=== PATIENT | female | born 1950 | race Caucasian/White ===

== ENCOUNTER 2016-09-21 14:02 | Inpatient (IN) | payer OTHER ==
[2016-09-21] MEDS ORDERED: ALBUTEROL SO4 2.5/IPRATROPIUM 0.5 INH SOL 3 ML VIAL.NEB. NEB ONE ×3 (14:15→14:46)
[2016-09-21] MEDS ORDERED: methylPREDNISolone NA SUCC 125 MG/2 ML VIAL IVPB ONE (14:46)
[2016-09-21 15:07] LABS: WHITE BLOOD COUNT 14.9 K/mm3 (4.0-10.0)
[2016-09-21 15:07] LABS: VENOUS BLOOD GAS HCO3 22.7 meq/L (22-29); VENOUS PH 7.38 (7.31-7.41)
--- NOTE | 2016-09-21 15:07 | PDOC ---
History of Present Illness - General History Source: Patient Exam Limitations: No Limitations - History of Present Illness Initial Comments: 09/21/16 17:49 The patient is a 65 year old female with a significant past medical history of COPD (not on home oxygen, intubated in the past), HTN, CKD Stage 4, SBO, PAD, Anemia, tobacco abuse who presents to the ED with worsening SOB for 5 days, Patient notes that her SOB had worsened today after a coughing attack and she couldnt catch her breath. Patient notes that she has been experiencing intermittent SOB for over 5 days. She also reports mid back pain that started few days ago after her coughing that started 5 days ago. No associated nubmness.tingling/weakness, urinary or bowel incontinence, recent fall/trauma/ injury She denies any fever, chills, nausea, vomiting, diarrhea, melena, bpr, constipation, leg swelling or headache. She denies any recent falls or trauma. PCP - Dr. José VICK - Dr. Valdez <Debora Roman - Last Filed: 09/21/16 18:16> <Jeremías Matthews - Last Filed: 09/21/16 18:30> - General Chief Complaint: Shortness of Breath Stated Complaint: SOB/WHEEZING Time Seen by Provider: 09/21/16 14:31 Past History <Debora Roman - Last Filed: 09/21/16 18:16> - Past Medical History Anemia: Yes Asthma: Yes Cancer: No Cardiac Disorders: No CVA: No COPD: Yes CHF: No Dementia: No Diabetes: No GI Disorders: Yes (ACID REFLUX) Disorders: No HTN: Yes Hypercholesterolemia: No Liver Disease: No Suicide Attempt (Hx): No Seizures: No Thyroid Disease: No - Surgical History Abdominal Surgery: Yes (HERNIA colon resection) Appendectomy: No Cardiac Surgery: No Cholecystectomy: No Lung Surgery: No Neurologic Surgery: No Orthopedic Surgery: No - Immunization History Immunization Up to Date: Yes - Psycho/Social/Smoking Cessation Hx Anxiety: No Suicidal Ideation: No Smoking Status: Yes Smoking History: Current every day smoker Have you smoked in the past 12 months: Yes Number of Cigarettes Smoked Daily: 10 Information on smoking cessation initiated: No 'Breaking Loose' booklet given: 08/19/15 Hx Alcohol Use: No Drug/Substance Use Hx: No Substance Use Type: None Hx Substance Use Treatment: No <Jeremías Matthews - Last Filed: 09/21/16 18:30> - Past Medical History Allergies/Adverse Reactions: Allergies Allergy/AdvReac Type Severity Reaction Status Date / Time No Known Drug Allergies Allergy Verified 09/21/16 14:04 Home Medications: Ambulatory Orders Albuterol Sulfate [Proair Respiclick] 90 mcg IH ASDIR 03/16/16 Ammonium Lactate Cream [Lac-Hydrin 12% Cream -] 1 applic TP BID 03/16/16 Aspirin [ASA -] 81 mg PO DAILY 03/16/16 Budesonide/Formeterol Fumarate [SYMBICORT 160/4.5mcg -] 2 inh PO DAILY 03/16/16 Bupropion HCl [Bupropion Xl] 300 mg PO DAILY 03/16/16 Calcium Carbonate/Vitamin D3 [Calcium 500-Vit D3 200 Caplet] 1 each PO BID 03/16 Clopidogrel Bisulfate [Clopidogrel] 75 mg PO DAILY 03/16/16 Ferrous Sulfate 325 mg PO TID 03/16/16 Losartan Potassium 100 mg PO DAILY 03/16/16 Montelukast Na [Singulair -] 10 mg PO HS 03/16/16 Omeprazole 20 mg PO DAILY 03/16/16 Quetiapine Fumarate [Seroquel -] 50 mg PO BID 03/16/16 Sertraline HCl [Zoloft -] 100 mg PO DAILY 03/16/16 Zolpidem Tartrate [Ambien Cr] 12.5 mg PO HS 03/16/16 Cyclobenzaprine HCl [Flexeril -] 10 mg PO HS 08/12/16 Pregabalin [Lyrica -] 75 mg PO TID 08/12/16 Atorvastatin Ca [Lipitor] 40 mg PO HS #30 tablet 08/13/16 Azithromycin [Zithromax 250mg Tablets -] 250 mg PO DAILY #3 tablet 08/13/16 Diltiazem Cd [Cardizem Cd -] 120 mg PO DAILY #30 cap.cd.24h 08/13/16 Nicotine Patch [Nicoderm Patch -] 21 mg TD DAILY #30 patch 08/13/16 Prednisone [Deltasone -] 5 mg PO ASDIR #78 tab 08/13/16 Tiotropium [place] [Spiriva] 18 mcg IH DAILY #1 inh 08/13/16 Review of Systems - Review of Systems Able to Perform ROS?: Yes Comments:: 09/21/16 17:49 CONSTITUTIONAL: No reported: Fever, Chills, Diaphoresis, Generalized Weakness, Malaise, Loss of Appetite HEENT: No reported: Rhinorrhea, Nasal Congestion, Throat Pain, Throat Swelling, Difficulty Swallowing, Mouth Swelling, Ear Pain, Eye Pain, Visual Changes CARDIOVASCULAR: No reported: Chest Pain, Syncope, Palpitations, Irregular Heart Rate, Lightheadedness, Peripheral Edema RESPIRATORY: Reported: cough, SOB, SOB with exertion No reported: Orthopnea, Wheezing, Stridor, Hemoptysis GASTROINTESTINAL: No reported: Abdominal pain, Abdominal Distension, Nausea, Vomiting, Diarrhea, Constipation, Melena, Hematochezia GENITOURINARY: No reported: Dysuria, Frequency, Urgency, Hesitancy, Flank Pain, Genital Pain MUSCULOSKELETAL: Reported: back pain No reported: Myalgia, Arthralgia, Joint Swelling, Neck Pain SKIN: No reported: Rash, Itching, Pallor HEMEATOLOGIC/IMMUNOLOGIC: No reported: Easy Bleeding, Easy Bruising, Lymphadenopathy, Frequent infections ENDOCRINE: No reported: Unexplained Weight Gain, Unexplained Weight Loss, Heat Intolerance , Cold Intolerance NEUROLOGIC: No reported: Headache, Focal Weakness, Paresthesias, Vertigo, Lightheadedness, Unsteady Gait, Seizure, Mental Status Changes, Incontinence PSYCHIATRIC: No reported: Anxiety, Depression <Debora Roman - Last Filed: 09/21/16 18:16> *Physical Exam - Vital Signs Last Vital Signs Temp Pulse Resp BP Pulse Ox 99.3 F 95 H 19 106/66 93 L 09/21/16 14:04 09/21/16 15:53 09/21/16 17:05 09/21/16 15:53 09/21/16 17:05 - Physical Exam Comments: 09/21/16 17:49 GENERAL: The patient is awake, alert, and fully oriented, in respiratory distress. HEAD: Normocephalic, atraumatic. EYES: extraocular movements intact, sclera anicteric, conjunctiva clear. ENT: Normal voice, Moist mucous membranes. NECK: Normal range of motion, supple LUNGS:tachypneic, scant wheezing, HEART: Regular rate and rhythm, without murmur, rub or gallop. ABDOMEN: Soft, nontender, normoactive bowel sounds. No guarding, no rebound.No CVA tenderness EXTREMITIES: Normal range of motion, no edema. No clubbing or cyanosis. No cords , erythema, or tenderness. NEUROLOGICAL: No facial assymetry, Normal speech, moving all 4 extermities spontaneously BACK: Mild tenderness in the mid back around T11-12 PSYCH: Normal mood, normal affect. SKIN: Warm, Dry, normal turgor, <Debora Roman - Last Filed: 09/21/16 18:16> - Vital Signs Last Vital Signs Temp Pulse Resp BP Pulse Ox 99.3 F 91 H 26 H 108/60 96 09/21/16 14:04 09/21/16 14:04 09/21/16 14:04 09/21/16 14:04 09/21/16 14:04 <Jeremías Matthews - Last Filed: 09/21/16 18:30> Heart Score/ECG Review - ECG Impressions Comment:: 09/21/16 16:37 Twelve-lead EKG was performed and reviewed by me. There is normal sinus rhythm with a normal rate. Rate of 92 The axis is normal. The intervals are normal. There is normal R wave progression There are no ST or T wave abnormalities. Impression: Normal twelve-lead EKG <Jeremías Matthews - Last Filed: 09/21/16 18:30> ED Treatment Course - LABORATORY CBC & Chemistry Diagram: 09/21/16 14:48 09/21/16 14:48 - ADDITIONAL ORDERS Additional order review: Laboratory Results 09/21/16 09/21/16 14:55 14:48 VBG pH 7.38 POC VBG pCO2 39.3 L POC VBG pO2 61.9 H Sodium 141 Potassium 4.4 Chloride 106 Carbon Dioxide 24 Anion Gap 11 BUN 26 H D Creatinine 1.5 H Creat Clearance w eGFR 34.64 Random Glucose 94 D Calcium 8.5 Total Bilirubin 0.3 AST 22 ALT 21 D Alkaline Phosphatase 171 H Creatine Kinase 95 Troponin I < 0.02 Total Protein 6.9 Albumin 3.4 09/21/16 14:48 RBC 3.30 L D MCV 89.0 MCHC 32.3 RDW 15.6 MPV 8.7 Neutrophils % 81.8 Lymphocytes % 10.8 D Monocytes % 5.6 D Eosinophils % 1.2 D Basophils % 0.6 D - Medications Given in the ED: ED Medications Discontinued Medications Generic Name Dose Route Start Last Admin Trade Name Freq PRN Reason Stop Dose Admin Albuterol/Ipratropium 1 amp 09/21/16 14:15 09/21/16 14:15 Duoneb - NEB 09/21/16 14:16 1 amp NOW ONE Administration Albuterol/Ipratropium 1 amp 09/21/16 14:46 09/21/16 15:07 Duoneb - NEB 09/21/16 14:47 1 amp ONCE ONE Administration Methylprednisolone Sodium Succinate 125 mg 09/21/16 14:46 09/21/16 15:16 Solu-Medrol - IVPB 09/21/16 14:47 125 mg ONCE ONE Administration Oxycodone/Acetaminophen 1 combo 09/21/16 15:20 09/21/16 15:27 Percocet 5/325 - PO 09/21/16 15:21 1 combo ONCE ONE Administration <Debora Roman - Last Filed: 09/21/16 18:16> - LABORATORY CBC & Chemistry Diagram: 09/21/16 14:48 09/21/16 14:48 - RADIOLOGY Radiology Studies Ordered: Category Date Time Status CHEST X-RAY PORTABLE* [RAD] Stat Radiology 09/21/16 14:45 Ordered - Medications Given in the ED: ED Medications Discontinued Medications Generic Name Dose Route Start Last Admin Trade Name Freq PRN Reason Stop Dose Admin Albuterol/Ipratropium 1 amp 09/21/16 14:15 09/21/16 14:15 Duoneb - NEB 09/21/16 14:16 1 amp NOW ONE Administration <Jeremías Matthews - Last Filed: 09/21/16 18:30> Medical Decision Making - Medical Decision Making 09/21/16 18:16 A call was placed to Dr. Kumar at his service. Awaiting call back. <Debora Roman - Last Filed: 09/21/16 18:16> - Medical Decision Making 09/21/16 15:00 65y F hx of COPD, asthma, anemia, htn, acid reflux presents with complaing of worsening cough/sob for the past 5 days, w/o any fever/chills. Pt also complaining of severe back pain when she is coughing and on palpation. On exam the pts lungs are relatively clear, she is midly tachypneic, sats are in the low 90s. pt does have tendernss in the lower thoracic spine on palpation. will obtain cxr to r/o pna nad acute pulmonary disease. xray of lumbar/thoracic spine to r/o fx suspect possible copd exacerbation vs pna, also consider possible PE will give nebs, steroids will reassess PCP: Dr. Kumar GI: Dr. Valdez 09/21/16 16:37 09/21/16 18:27 The patient's blood work was reviewed The patient was noted to have hemoglobin of 9.5 --> down from 12.5 in July. The patient has a history of upper GI bleed, however denies any history of black stool or BPR, guaiac is negative here. The patient's white count is noted to be elevated without a left shift. The patient's chest x-ray is negative for any acute disease Influenza is negative Discussed in detail with Dr. Kumar - consider that the patient's shortness of breath may be secondary to her anemia will transfuse 1 unit of packed red blood cells. Will admit for further management of her shortness of breath. Stable for [facility] Case discussed in detail with admitting physician including history, physical exam and ancillary studies. Admitting physician has assumed care for the patient, will follow all pending diagnostics and will complete the evaluation and treatment. 09/21/16 18:29 A portion of this note was documented by scribe services under my direction. I have reviewed the details of the note, within reason, and agree with the documentation with the following case summary and management plan written by me <Jeremías Matthews - Last Filed: 09/21/16 18:30> *DC/Admit/Observation/Transfer - Attestations Scribe Attestion: 09/21/16 17:50 Documentation prepared by LYNNE Mann, acting as medical/surgery registered nurse for Jeremías Matthews MD. <Debora Roman - Last Filed: 09/21/16 18:16> - Discharge Dispostion Admit: Yes <Jeremías Matthews - Last Filed: 09/21/16 18:30> Diagnosis at time of Disposition: Dyspnea on exertion Anemia Qualifiers: Anemia type: unspecified type Qualified Code(s): D64.9 - Anemia, unspecified COPD (chronic obstructive pulmonary disease) Qualifiers: COPD type: unspecified COPD Qualified Code(s): J44.9 - Chronic obstructive pulmonary disease, unspecified CKD (chronic kidney disease) Qualifiers: Chronic kidney disease stage: unspecified stage Qualified Code(s): N18.9 - Chronic kidney disease, unspecified - Discharge Dispostion Condition at time of disposition: Guarded - Referrals Referrals: Mariano Kumar MD [Primary Care Provider] -
[2016-09-21 15:08] LABS: BASOPHIL 0.6 % (0-2.0); EOSINOPHIL 1.2 % (0-4.5); MCH 28.7 pg (25.7-33.7); MCHC 32.3 g/dl (32.0-36.0); MEAN PLT VOLUME 8.7 fl (7.5-11.1); NEUTROPHILS 81.8 % (42.8-82.8); PLATELET COUNT 243 K/MM3 (134-434); RDW 15.6 % (11.6-15.6)
[2016-09-21] MEDS ORDERED: methylPREDNISolone NA SUCC 125 MG/2 ML VIAL ONE (15:11)
[2016-09-21] MEDS ORDERED: OXYCODONE/APAP 5/325MG COMBO TABLET PO ONE (15:20)
[2016-09-21] MEDS ORDERED: OXYCODONE/APAP 5/325MG COMBO TABLET ONE (15:21)
[2016-09-21 15:32] LABS: ALBUMIN 3.4 g/dl (3.4-5.0); ANION GAP 11 (8-16); BILIRUBIN,TOTAL 0.3 mg/dL (0.2-1.0); CALCIUM 8.5 mg/dL (8.5-10.1); CO2 24 mmol/L (21-32); CREATININE 1.5 mg/dL (0.55-1.02); GLUCOSE,RANDOM 94 mg/dL (74-106); SGOT/AST 22 U/L (15-37); SGPT/ALT 21 U/L (12-78); TOT PROT 6.9 g/dl (6.4-8.2)
[2016-09-21 15:34] LABS: ALK PHOS 171 U/L (45-117); TROPONIN I < 0.02 ng/ml (0.00-0.05)
[2016-09-21] MEDS ORDERED: ALBUTEROL SO4 0.083% IH SOL 2.5 MG/3 ML VIAL.NEB. NEB PRN (19:20)
--- NOTE | 2016-09-21 19:36 | HP ---
Admitting History and Physical - Admission Chief Complaint: shortness of breath, cough History of Present Illness: 65 yo female presents to hospital with back pain, increased coughing. Pain started after cough had increased. Recently admitted for COPD exac (about 1 month ago). Had been on prednisone, now tapered off. When her back hurt she tried to hold in her coughing, but notes that now having increased throat pain as well. Feeling short of breath as well, which also increased last few days. Last summer (03/30) was admitted with anemia with a hgb 7.9. Underwent EGD and colonoscopy at that time, which did not reveal any bleedign (was guiac negative at that time). Noted to be guiac negative in ED now as well, notes no change with her stool. When she was hospitalized her hgb was 12 1 month ago, now 9.5. History Source: Patient, Medical Record Limitations to Obtaining History: Poor Historian - Past Medical History [employer] C[employer]IAN: Yes: Dementia Cardiovascular: Yes: HTN Pulmonary: Yes: Asthma, COPD Gastrointestinal: Yes: Other (SBO) Renal/: Yes: Renal Inusuff Heme/Onc: Yes: Anemia Psych: Yes: Anxiety - Past Surgical History Past Surgical History: Yes: Bypass (arterial), , Hernia Repair - Smoking History Smoking history: Current every day smoker Have you smoked in the past 12 months: Yes Aproximately how many cigarettes per day: 10 - Alcohol/Substance Use Hx Alcohol Use: No History of Substance Use: reports: None - Social History ADL: Independent History of Recent Travel: No Home Medications - Allergies Allergies/Adverse Reactions: Allergies Allergy/AdvReac Type Severity Reaction Status Date / Time No Known Drug Allergies Allergy Verified 09/21/16 14:04 - Home Medications Home Medications: Ambulatory Orders Albuterol Sulfate [Proair Respiclick] 90 mcg IH ASDIR 03/16/16 Ammonium Lactate Cream [Lac-Hydrin 12% Cream -] 1 applic TP BID 03/16/16 Aspirin [ASA -] 81 mg PO DAILY 03/16/16 Budesonide/Formeterol Fumarate [SYMBICORT 160/4.5mcg -] 2 inh PO DAILY 03/16/16 Bupropion HCl [Bupropion Xl] 300 mg PO DAILY 03/16/16 Calcium Carbonate/Vitamin D3 [Calcium 500-Vit D3 200 Caplet] 1 each PO BID 03/16 Clopidogrel Bisulfate [Clopidogrel] 75 mg PO DAILY 03/16/16 Ferrous Sulfate 325 mg PO TID 03/16/16 Losartan Potassium 100 mg PO DAILY 03/16/16 Montelukast Na [Singulair -] 10 mg PO HS 03/16/16 Omeprazole 20 mg PO DAILY 03/16/16 Quetiapine Fumarate [Seroquel -] 50 mg PO BID 03/16/16 Sertraline HCl [Zoloft -] 100 mg PO DAILY 03/16/16 Zolpidem Tartrate [Ambien Cr] 12.5 mg PO HS 03/16/16 Cyclobenzaprine HCl [Flexeril -] 10 mg PO HS 08/12/16 Pregabalin [Lyrica -] 75 mg PO TID 08/12/16 Atorvastatin Ca [Lipitor] 40 mg PO HS #30 tablet 08/13/16 Azithromycin [Zithromax 250mg Tablets -] 250 mg PO DAILY #3 tablet 08/13/16 Diltiazem Cd [Cardizem Cd -] 120 mg PO DAILY #30 cap.cd.24h 08/13/16 Nicotine Patch [Nicoderm Patch -] 21 mg TD DAILY #30 patch 08/13/16 Prednisone [Deltasone -] 5 mg PO ASDIR #78 tab 08/13/16 Tiotropium [place] [Spiriva] 18 mcg IH DAILY #1 inh 08/13/16 Family Disease History - Family Disease History Family Disease History: Diabetes: Brother, Sister Review of Systems - Review of Systems Constitutional: denies: Chills, Fever, Loss of Appetite Eyes: reports: No Symptoms HENT: reports: Throat Pain Neck: reports: No Symptoms Cardiovascular: denies: Chest Pain, Palpitations Respiratory: reports: Cough, SOB, Wheezing. denies: Hemoptysis Gastrointestinal: denies: Abdominal Pain, Diarrhea, Melena, Nausea, Vomiting, Vomiting Blood Genitourinary: denies: Burning, Discharge, Dysuria Neurological: reports: Other (frequent dyskenesia movements) Physical Examination Vital Signs: Vital Signs Temperature 99.3 F 09/21/16 14:04 Pulse Rate 95 H 09/21/16 15:53 Respiratory Rate 19 09/21/16 17:05 Blood Pressure 106/66 09/21/16 15:53 O2 Sat by Pulse Oximetry (%) 93 L 09/21/16 17:05 Constitutional: Yes: No Distress, Anxious Eyes: Yes: Conjunctiva Clear, EOM Intact, PERRL HENT: Yes: Atraumatic, Normocephalic Neck: Yes: Supple, Trachea Midline Cardiovascular: Yes: Regular Rate and Rhythm, S1, S2. No: Murmur Respiratory: Yes: Diminished (bilaterally) Gastrointestinal: Yes: Normal Bowel Sounds, Soft. No: Distention, Tenderness Edema: Yes Edema: LLE: Trace, RLE: Trace Neurological: Yes: Alert, Oriented Labs: CBC, BMP 09/21/16 14:48 09/21/16 14:48 Imaging - Results Chest X-ray: Report Reviewed (no acute disease) Problem List - Problems (1) COPD (chronic obstructive pulmonary disease) Assessment/Plan: -start nebs, solumedrol, cont spiriva, pulm eval Code(s): J44.9 - CHRONIC OBSTRUCTIVE PULMONARY DISEASE, UNSPECIFIED Qualifiers : COPD type: COPD with acute exacerbation Qualified Code(s): J44.1 - Chronic obstructive pulmonary disease with (acute) exacerbation (2) Symptomatic anemia Assessment/Plan: -transfuse 1 unit -Renal eval, heme eval (anemia of chronic disease? -neg EGD, colonoscopy 03/30) Code(s): D64.9 - ANEMIA, UNSPECIFIED (3) CKD (chronic kidney disease) Assessment/Plan: -renal eval (contributing to anemia?) Code(s): N18.9 - CHRONIC KIDNEY DISEASE, UNSPECIFIED Qualifiers: Chronic kidney disease stage: unspecified stage Qualified Code(s): N18.9 - Chronic kidney disease, unspecified (4) Hyperlipidemia Assessment/Plan: cont statin Code(s): E78.5 - HYPERLIPIDEMIA, UNSPECIFIED (5) Hypertension Assessment/Plan: -cont antihypertensives Code(s): I10 - ESSENTIAL (PRIMARY) HYPERTENSION (6) Anxiety Assessment/Plan: -on zoloft, wellbutrin, seroquel, flexeril Code(s): F41.9 - ANXIETY DISORDER, UNSPECIFIED
[2016-09-21] MEDS ORDERED: MONTELUKAST NA 10 MG TABLET ONE (21:12)
[2016-09-21] MEDS ORDERED: methylPREDNISolone NA SUCC 40 MG/1 ML VIAL ONE (21:13)
[2016-09-21] MEDS: ATORVASTATIN CA 40 MG TABLET (FP) PO SCH (21:38)
[2016-09-21] MEDS: FERROUS SO4 325 MG TABLET (FP) PO SCH (21:38)
[2016-09-21] MEDS: CYCLOBENZAPRINE HCL 10 MG TABLET (FP) PO SCH (21:38)
[2016-09-21] MEDS: PREGABALIN 75 MG CAPSULE PO SCH (21:38)
[2016-09-21] MEDS: CALCIUM 500MG/VIT-D 200 UNITS COMBO TABLET (FP) PO SCH (21:39)
[2016-09-21] MEDS: QUEtiapine FUMARATE 50 MG TABLET PO SCH (21:39)
[2016-09-21] MEDS: MONTELUKAST NA 10 MG TABLET PO SCH (21:39)
[2016-09-21] MEDS: ACLIDINIUM BROMIDE 400 MCG/INH AERO.POWD IH SCH (21:39)
[2016-09-21] MEDS: BUDESONIDE/FORMETEROL FUMARATE 160/4.5 mcg INHALER IH SCH (21:39)
[2016-09-21] MEDS: methylPREDNISolone NA SUCC 125 MG/2 ML VIAL IVPB SCH (21:39)
[2016-09-21] MEDS ORDERED: ZOLPIDEM TARTRATE 5 MG TABLET PO PRN (22:00)
[2016-09-21] MEDS: AMMONIUM LACTATE 12% CREAM 140 GM TUBE TP SCH (22:00)
[2016-09-22] MEDS: ALBUTEROL SO4 0.083% IH SOL 2.5 MG/3 ML VIAL.NEB. NEB SCH ×4 (00:07→17:15)
[2016-09-22 05:33] VITALS: BMI 33.5
[2016-09-22] MEDS: FERROUS SO4 325 MG TABLET (FP) PO SCH ×3 (05:41→21:27)
[2016-09-22] MEDS: PREGABALIN 75 MG CAPSULE PO SCH ×3 (05:41→21:27)
[2016-09-22] MEDS: methylPREDNISolone NA SUCC 125 MG/2 ML VIAL IVPB SCH ×2 (06:42→17:53)
[2016-09-22 06:59] LABS: MCH 29.1 pg (25.7-33.7); MCHC 33.1 g/dl (32.0-36.0); MEAN CELL VOLUME 88.2 fl (80-96); MEAN PLT VOLUME 8.8 fl (7.5-11.1); NEUTROPHILS 93.6 % (42.8-82.8); PLATELET COUNT 237 K/MM3 (134-434); RDW 15.7 % (11.6-15.6); WHITE BLOOD COUNT 9.1 K/mm3 (4.0-10.0)
[2016-09-22 07:03] LABS: ALBUMIN 3.4 g/dl (3.4-5.0); CALCIUM 9.1 mg/dL (8.5-10.1); CREATININE 1.5 mg/dL (0.55-1.02)
[2016-09-22 07:05] LABS: BILIRUBIN,TOTAL 0.7 mg/dL (0.2-1.0)
[2016-09-22] MEDS ORDERED: methylPREDNISolone NA SUCC 125 MG/2 ML VIAL IVPB ONE (08:00)
[2016-09-22] MEDS ORDERED: QUEtiapine FUMARATE 25 MG TABLET (FP) ONE ×2 (09:54→21:11)
[2016-09-22] MEDS ORDERED: PT OWN MED DRAWER 7, Y5N ONE ×3 (09:55→22:14)
[2016-09-22] MEDS: ASPIRIN 81 MG CHEWABLE TABLETS PO SCH (10:11)
[2016-09-22] MEDS: AMMONIUM LACTATE 12% CREAM 140 GM TUBE TP SCH ×2 (10:12→21:46)
[2016-09-22] MEDS: LOSARTAN POTASSIUM 50 MG TABLET (FP) PO SCH (10:12)
[2016-09-22] MEDS: NICOTINE 21 MG/24 HOURS TOPICAL PATCH TD SCH (10:12)
[2016-09-22] MEDS: CLOPIDOGREL BISULFATE 75 MG TABLET (FP) PO SCH (10:13)
[2016-09-22] MEDS: PANTOPRAZOLE 20 MG TABLET (FP) PO SCH (10:13)
[2016-09-22] MEDS: CALCIUM 500MG/VIT-D 200 UNITS COMBO TABLET (FP) PO SCH ×2 (10:13→21:28)
[2016-09-22] MEDS: QUEtiapine FUMARATE 50 MG TABLET PO SCH ×2 (10:14→21:28)
[2016-09-22] MEDS: SERTRALINE HCL 50 MG TABLET (FP) PO SCH (10:14)
[2016-09-22] MEDS: BUDESONIDE/FORMETEROL FUMARATE 160/4.5 mcg INHALER IH SCH ×2 (11:28→21:41)
[2016-09-22] MEDS: ACLIDINIUM BROMIDE 400 MCG/INH AERO.POWD IH SCH ×2 (11:29→21:45)
--- NOTE | 2016-09-22 11:34 | CONSULT ---
Consult - text type - Consultation Consultation Note: Renal Consult for CKD/Anemia This is a 65 year old woman with PMhx of non-proteinuric CKD stage 3, hypertension anxiety disorder who presented with sob and found to have Anemia and Cr of 1.5. Pt s/p hospital admission last summer for acute anemia that required blood transfusions, EGD/Colonoscopy at that time was negative for any source of bleeding. Pt denies any dark stools this admission. No flank pain. Denies any NSAID use. + SOB on presentation, + active smoker. No chest pain, fever or chills. PMhx: as above Allergies: NKDA Family hx: NC Social Hx: + smoker ROS: as per HPI Home Meds: Home Medications Medication Instructions Recorded Albuterol Sulfate [Proair 90 mcg IH ASDIR 03/16/16 Respiclick] Ammonium Lactate Cream [Lac-Hydrin 1 applic TP BID 03/16/16 12% Cream -] Aspirin [ASA -] 81 mg PO DAILY 03/16/16 Budesonide/Formeterol Fumarate 2 inh PO DAILY 03/16/16 [SYMBICORT 160/4.5mcg -] Bupropion HCl [Bupropion Xl] 300 mg PO DAILY 03/16/16 Calcium Carbonate/Vitamin D3 1 each PO BID 03/16/16 [Calcium 500-Vit D3 200 Caplet] Clopidogrel Bisulfate [Clopidogrel] 75 mg PO DAILY 03/16/16 Ferrous Sulfate 325 mg PO TID 03/16/16 Losartan Potassium 100 mg PO DAILY 03/16/16 Montelukast Na [Singulair -] 10 mg PO HS 03/16/16 Omeprazole 20 mg PO DAILY 03/16/16 Quetiapine Fumarate [Seroquel -] 50 mg PO BID 03/16/16 Sertraline HCl [Zoloft -] 100 mg PO DAILY 03/16/16 Zolpidem Tartrate [Ambien Cr] 12.5 mg PO HS 03/16/16 Cyclobenzaprine HCl [Flexeril -] 10 mg PO HS 08/12/16 Pregabalin [Lyrica -] 75 mg PO TID 08/12/16 Atorvastatin Ca [Lipitor] 40 mg PO HS #30 tablet 08/13/16 Azithromycin [Zithromax 250mg 250 mg PO DAILY #3 tablet 08/13/16 Tablets -] Diltiazem Cd [Cardizem Cd -] 120 mg PO DAILY #30 cap.cd.24h 08/13/16 Nicotine Patch [Nicoderm Patch -] 21 mg TD DAILY #30 patch 08/13/16 Prednisone [Deltasone -] 5 mg PO ASDIR #78 tab 08/13/16 Tiotropium [place] [Spiriva] 18 mcg IH DAILY #1 inh 08/13/16 Vital Signs Temperature 98.1 F 09/22/16 05:00 Pulse Rate 107 H 09/22/16 09:40 Respiratory Rate 28 H 09/22/16 05:00 Blood Pressure 129/64 09/22/16 05:00 O2 Sat by Pulse Oximetry (%) 98 09/22/16 09:40 Intake & Output 09/19/16 09/20/16 09/21/16 09/22/16 23:59 23:59 23:59 23:59 Intake Total 130 Balance 130 Weight 180 lb 177 lb 2 oz Gen: Very anxious HEENT: NC/AT, MMM CVS: RRR Lungs: CTA + wheeze Abd: soft NT/ND Ext: No edmea, clubbing or cyanosis : No bladder distension Neuro: very axious, no focal defects CBC, BMP 09/22/16 05:35 09/22/16 05:35 Current Medications Aclidinium [place] (Tudorza -) 1 puff IH BID [facility] Last Admin: 09/22/16 11:29 Dose: 1 inh Albuterol Sulfate (Ventolin 0.083% Nebulizer Soln -) 1 amp NEB Q4H PRN PRN Reason: SHORT OF BREATH/WHEEZING Albuterol Sulfate (Ventolin 0.083% Nebulizer Soln -) 1 amp NEB QIDR [facility] Last Admin: 09/22/16 11:02 Dose: 1 amp Aspirin (Asa -) 81 mg PO DAILY [facility] Last Admin: 09/22/16 10:11 Dose: 81 mg Atorvastatin Cal[place] (Lipitor -) 40 mg PO HS [facility] Last Admin: 09/21/16 21:38 Dose: 40 mg Budesonide/Formoterol Fumarate (Symbicort 160/4.5mcg -) 2 puff IH BID [facility] Last Admin: 09/22/16 11:28 Dose: 2 inh Bupropion HCl (Wellbutrin Xl -) 300 mg PO DAILY [facility] Last Admin: 09/22/16 10:14 Dose: 300 mg Calcium Carbonate/Cholecalciferol (Os-Clarence 500+D -) 1 tab PO BID [facility] Last Admin: 09/22/16 10:13 Dose: Not Given Clopidogrel Bisulfate (Plavix -) 75 mg PO DAILY [facility] Last Admin: 09/22/16 10:13 Dose: 75 mg Cyclobenzaprine HCl (Flexeril -) 10 mg PO HS [facility] Last Admin: 09/21/16 21:38 Dose: 10 mg Diltiazem HCl (Cardizem Cd -) 120 mg PO DAILY [facility] Last Admin: 09/22/16 10:12 Dose: 120 mg Ferrous Sulfate (Feosol -) 325 mg PO TID [facility] Last Admin: 09/22/16 05:41 Dose: 325 mg Lactic Acid (Lac-Hydrin 12% Cream -) 1 applic TP BID [facility] Last Admin: 09/22/16 10:12 Dose: 1 applic Losartan Potassium (Cozaar -) 100 mg PO DAILY [facility] Last Admin: 09/22/16 10:12 Dose: 100 mg Methylprednisolone Sodium Succinate (Solu-Medrol -) 80 mg IVPB BID [facility] Last Admin: 09/22/16 06:42 Dose: 80 mg Montelukast Sodium (Singulair -) 10 mg PO HS [facility] Last Admin: 09/21/16 21:39 Dose: 10 mg Nicotine (Nicoderm Patch -) 21 mg TD DAILY [facility] Last Admin: 09/22/16 10:12 Dose: 21 mg Pantoprazole Sodium (Protonix -) 20 mg PO DAILY [facility] Last Admin: 09/22/16 10:13 Dose: 20 mg Pregabalin (Lyrica -) 75 mg PO TID [facility] Last Admin: 09/22/16 05:41 Dose: 75 mg Quetiapine Fumarate (Seroquel -) 50 mg PO BID [facility] Last Admin: 09/22/16 10:14 Dose: 50 mg Sertraline HCl (Zoloft -) 100 mg PO DAILY [facility] Last Admin: 09/22/16 10:14 Dose: 100 mg Zolpidem Tartrate (Ambien -) 5 mg PO HS PRN A/P 65 year old woman with PMhx of non-proteinuric CKD stage 3, hypertension anxiety disorder who presented with sob and found to have Anemia and Cr of 1.5. #Acute SOB secondary to COPD exacerbation +/- Anemia Continue IV steroids and Nebs as per pulmonary Supplamenatl O2 as needed #Aacute on Chronic Anemia s/p PRBC transfusion Iron studies pending Will plan to start Aranesp SC Qweekly if iron stores are adaqute IV iron if iron saturation less then 30% #CKD Stage 3 Renal function at baseline continue losartan avoid nsads and other nephrotoxins #Anxiety disorder Continue zolfot, seroquel may need additional medications Consider psych eval Thank you Will follow José Manuel Reese DO
--- NOTE | 2016-09-22 13:03 | PN ---
Progress Note (short form) - Note Progress Note: PULMONARY CONSULTATION DICTATED 09/22/16 IMP COPD EXACERBATION ANEMIA CHEST PAIN CKD STAGE 3 HTN SMOKER PLAN IV STEROIDS INHALED BRONCHODILATORS NASAL O2 CARDIAC W/U SMOKING CESSATION DISCUSSED DR MARIE Problem List - Problems (1) Anemia Code(s): D64.9 - ANEMIA, UNSPECIFIED Qualifiers: Anemia type: unspecified type Qualified Code(s): D64.9 - Anemia, unspecified (2) Anxiety Code(s): F41.9 - ANXIETY DISORDER, UNSPECIFIED (3) CKD (chronic kidney disease) Code(s): N18.9 - CHRONIC KIDNEY DISEASE, UNSPECIFIED Qualifiers: Chronic kidney disease stage: unspecified stage Qualified Code(s): N18.9 - Chronic kidney disease, unspecified (4) Dyspnea on exertion Code(s): R06.09 - OTHER FORMS OF DYSPNEA (5) Chest pain Code(s): R07.9 - CHEST PAIN, UNSPECIFIED (6) Hyperlipidemia Code(s): E78.5 - HYPERLIPIDEMIA, UNSPECIFIED (7) Hypertension Code(s): I10 - ESSENTIAL (PRIMARY) HYPERTENSION (8) Smokes cigarettes Code(s): F17.210 - NICOTINE DEPENDENCE, CIGARETTES, UNCOMPLICATED (9) Symptomatic anemia Code(s): D64.9 - ANEMIA, UNSPECIFIED (10) COPD (chronic obstructive pulmonary disease) Code(s): J44.9 - CHRONIC OBSTRUCTIVE PULMONARY DISEASE, UNSPECIFIED Qualifiers : COPD type: COPD with acute exacerbation Qualified Code(s): J44.1 - Chronic obstructive pulmonary disease with (acute) exacerbation (11) Decompensated COPD with exacerbation (chronic obstructive pulmonary disease ) Code(s): J44.1 - CHRONIC OBSTRUCTIVE PULMONARY DISEASE W (ACUTE) EXACERBATION
[2016-09-22 13:37] LABS: URINE APPEARANCE CLEAR; URINE BILIRUBIN NEGATIVE (NEGATIVE); URINE BLOOD NEGATIVE (NEGATIVE); URINE COLOR STRAW; URINE GLUCOSE (UA) NEGATIVE (NEGATIVE); URINE KETONE NEGATIVE (NEGATIVE); URINE LEUK ESTERASE NEGATIVE (NEGATIVE); URINE NITRITE NEGATIVE (NEGATIVE); URINE UROBILINOGEN NEGATIVE E.U./dl (0.2-1.0)
[2016-09-22 13:38] LABS: URINE CREATININE 45.1 mg/dL
[2016-09-22 13:39] LABS: URINE PROTEIN 1+ (NEGATIVE)
[2016-09-22 13:44] LABS: URINE WBC <1 /hpf (3-5)
--- NOTE | 2016-09-22 13:45 | EKG ---
Test Reason : Blood Pressure : / mmHG Vent. Rate : 092 BPM Atrial Rate : 092 BPM P-R Int : 134 ms QRS Dur : 082 ms QT Int : 372 ms P-R-T Axes : 054 011 052 degrees QTc Int : 460 ms NORMAL SINUS RHYTHM LOW VOLTAGE QRS BORDERLINE ECG WHEN COMPARED WITH ECG OF 11-AUG-2016 02:17, NO SIGNIFICANT CHANGE WAS FOUND Confirmed by MARIBEL GILLESPIE MD ([id number]) on 09/22/2016 1:44:58 PM Referred By: Confirmed By:MARIBEL GILLESPIE MD
[2016-09-22] MEDS: AZITHROMYCIN 250 MG TABLET (FP) PO SCH (15:05)
--- NOTE | 2016-09-22 15:42 | PN ---
Progress Note, Physician Chief Complaint: Ms Castellano says she is still having coughing and shortness of breath, but it is improving. Having chest pain on inspiration and coughing, no chest pressure. No n/v. - Current Medication List Current Medications: Active Medications Aclidinium Man (Tudorza -) 1 puff IH BID [facility] Last Admin: 09/22/16 11:29 Dose: 1 inh Albuterol Sulfate (Ventolin 0.083% Nebulizer Soln -) 1 amp NEB Q4H PRN PRN Reason: SHORT OF BREATH/WHEEZING Albuterol Sulfate (Ventolin 0.083% Nebulizer Soln -) 1 amp NEB QIDR [facility] Last Admin: 09/22/16 11:02 Dose: 1 amp Aspirin (Asa -) 81 mg PO DAILY [facility] Last Admin: 09/22/16 10:11 Dose: 81 mg Atorvastatin Calcium (Lipitor -) 40 mg PO HS [facility] Last Admin: 09/21/16 21:38 Dose: 40 mg Azithromycin (Zithromax -) 250 mg PO DAILY [facility] Last Admin: 09/22/16 15:05 Dose: 250 mg Budesonide/Formoterol Fumarate (Symbicort 160/4.5mcg -) 2 puff IH BID [facility] Last Admin: 09/22/16 11:28 Dose: 2 inh Bupropion HCl (Wellbutrin Xl -) 300 mg PO DAILY [facility] Last Admin: 09/22/16 10:14 Dose: 300 mg Calcium Carbonate/Cholecalciferol (Os-Clarence 500+D -) 1 tab PO BID [facility] Last Admin: 09/22/16 10:13 Dose: Not Given Clopidogrel Bisulfate (Plavix -) 75 mg PO DAILY [facility] Last Admin: 09/22/16 10:13 Dose: 75 mg Cyclobenzaprine HCl (Flexeril -) 10 mg PO HS [facility] Last Admin: 09/21/16 21:38 Dose: 10 mg Diltiazem HCl (Cardizem Cd -) 120 mg PO DAILY [facility] Last Admin: 09/22/16 10:12 Dose: 120 mg Ferrous Sulfate (Feosol -) 325 mg PO TID [facility] Last Admin: 09/22/16 15:05 Dose: 325 mg Lactic Acid (Lac-Hydrin 12% Cream -) 1 applic TP BID [facility] Last Admin: 09/22/16 10:12 Dose: 1 applic Losartan Potassium (Cozaar -) 100 mg PO DAILY [facility] Last Admin: 09/22/16 10:12 Dose: 100 mg Methylprednisolone Sodium Succinate (Solu-Medrol -) 60 mg IVPB Q8H-IV [facility] Montelukast Sodium (Singulair -) 10 mg PO HS [facility] Last Admin: 09/21/16 21:39 Dose: 10 mg Nicotine (Nicoderm Patch -) 21 mg TD DAILY [facility] Last Admin: 09/22/16 10:12 Dose: 21 mg Pantoprazole Sodium (Protonix -) 20 mg PO DAILY [facility] Last Admin: 09/22/16 10:13 Dose: 20 mg Pregabalin (Lyrica -) 75 mg PO TID [facility] Last Admin: 09/22/16 15:05 Dose: 75 mg Quetiapine Fumarate (Seroquel -) 50 mg PO BID [facility] Last Admin: 09/22/16 10:14 Dose: 50 mg Sertraline HCl (Zoloft -) 100 mg PO DAILY [facility] Last Admin: 09/22/16 10:14 Dose: 100 mg Zolpidem Tartrate (Ambien -) 5 mg PO HS PRN - Objective Vital Signs: Vital Signs Temperature 97.9 F 09/22/16 14:07 Pulse Rate 96 H 09/22/16 14:07 Respiratory Rate 20 09/22/16 14:07 Blood Pressure 116/63 09/22/16 14:07 O2 Sat by Pulse Oximetry (%) 98 09/22/16 09:40 Constitutional: Yes: Well Nourished, No Distress, Calm Cardiovascular: Yes: Regular Rate and Rhythm. No: Gallop, Murmur, Rub Respiratory: Yes: Regular, On Nasal O2, Rhonchi, Wheezes. No: Tachypnea Gastrointestinal: Yes: Normal Bowel Sounds, Soft. No: Distention, Tenderness Extremities: Yes: WNL Edema: No Labs: CBC, BMP 09/22/16 05:35 09/22/16 05:35 Assessment/Plan (1) COPD (chronic obstructive pulmonary disease) Assessment/Plan: -pulmonary consulted and note reviewed -continue bronchodilators -continue solumedrol -follow up respiratory virus panel Code(s): J44.9 - CHRONIC OBSTRUCTIVE PULMONARY DISEASE, UNSPECIFIED Qualifiers : COPD type: COPD with acute exacerbation Qualified Code(s): J44.1 - Chronic obstructive pulmonary disease with (acute) exacerbation (2) Symptomatic anemia Assessment/Plan: -transfused 1 unit -nephrology following, awaiting anemia labs -plan for aranesp -had recent GI work up -hematology consulted Code(s): D64.9 - ANEMIA, UNSPECIFIED (3) CKD (chronic kidney disease) Assessment/Plan: -stable -renal evaluating Code(s): N18.9 - CHRONIC KIDNEY DISEASE, UNSPECIFIED Qualifiers: Chronic kidney disease stage: unspecified stage Qualified Code(s): N18.9 - Chronic kidney disease, unspecified (4) Hyperlipidemia Assessment/Plan: -continue statin Code(s): E78.5 - HYPERLIPIDEMIA, UNSPECIFIED (5) Hypertension Assessment/Plan: -well controlled -continue current regimen Code(s): I10 - ESSENTIAL (PRIMARY) HYPERTENSION (6) Anxiety Assessment/Plan: -continue zoloft, wellbutrin, seroquel, flexeril Code(s): F41.9 - ANXIETY DISORDER, UNSPECIFIED
[2016-09-22] MEDS ORDERED: methylPREDNISolone NA SUCC 125 MG/2 ML VIAL IVPB SCH (18:00)
[2016-09-22] MEDS: CYCLOBENZAPRINE HCL 10 MG TABLET (FP) PO SCH (21:27)
[2016-09-22] MEDS: MONTELUKAST NA 10 MG TABLET PO SCH (21:28)
[2016-09-22] MEDS: ATORVASTATIN CA 40 MG TABLET (FP) PO SCH (21:45)
--- NOTE | 2016-09-22 21:51 | CONSULT ---
Consult - text type - Consultation Consultation Note: The patient is a 65 year old female with a significant past medical history of COPD (not on home oxygen, intubated in the past), HTN, CKD Stage 4, SBO, PAD, Anemia, tobacco abuse who presented with worsening SOB for 5 days. She also reports mid back pain that started few days ago after her coughing that started 5 days ago. No associated nubmness.tingling/weakness, urinary or bowel incontinence, recent fall/trauma/injury She denies any fever, chills, nausea, vomiting, diarrhea, melena, bpr, constipation, leg swelling or headache. She denies any recent falls or trauma. - Past Medical History Anemia: Yes Asthma: Yes COPD: Yes GI Disorders: Yes (ACID REFLUX) HTN: Yes - Surgical History Abdominal Surgery: Yes (HERNIA colon resection) - Immunization History Immunization Up to Date: Yes - Psycho/Social/Smoking Cessation Hx Smoking Status: Yes Smoking History: Current every day smoker Have you smoked in the past 12 months: Yes - Past Medical History Allergies/Adverse Reactions: Allergies Allergy/AdvReac Type Severity Reaction Status Date / Time No Known Drug Allergies Allergy Verified 09/21/16 14:04 Home Medications: Ambulatory Orders Albuterol Sulfate [Proair Respiclick] 90 mcg IH ASDIR 03/16/16 Ammonium Lactate Cream [Lac-Hydrin 12% Cream -] 1 applic TP BID 03/16/16 Aspirin [ASA -] 81 mg PO DAILY 03/16/16 Budesonide/Formeterol Fumarate [SYMBICORT 160/4.5mcg -] 2 inh PO DAILY 03/16/16 Bupropion HCl [Bupropion Xl] 300 mg PO DAILY 03/16/16 Calcium Carbonate/Vitamin D3 [Calcium 500-Vit D3 200 Caplet] 1 each PO BID 03/16 Clopidogrel Bisulfate [Clopidogrel] 75 mg PO DAILY 03/16/16 Ferrous Sulfate 325 mg PO TID 03/16/16 Losartan Potassium 100 mg PO DAILY 03/16/16 Montelukast Na [Singulair -] 10 mg PO HS 03/16/16 Omeprazole 20 mg PO DAILY 03/16/16 Quetiapine Fumarate [Seroquel -] 50 mg PO BID 03/16/16 Sertraline HCl [Zoloft -] 100 mg PO DAILY 03/16/16 Zolpidem Tartrate [Ambien Cr] 12.5 mg PO HS 03/16/16 Cyclobenzaprine HCl [Flexeril -] 10 mg PO HS 08/12/16 Pregabalin [Lyrica -] 75 mg PO TID 08/12/16 Atorvastatin Ca [Lipitor] 40 mg PO HS #30 tablet 08/13/16 Azithromycin [Zithromax 250mg Tablets -] 250 mg PO DAILY #3 tablet 08/13/16 Diltiazem Cd [Cardizem Cd -] 120 mg PO DAILY #30 cap.cd.24h 08/13/16 Nicotine Patch [Nicoderm Patch -] 21 mg TD DAILY #30 patch 08/13/16 Prednisone [Deltasone -] 5 mg PO ASDIR #78 tab 08/13/16 Tiotropium [place] [Spiriva] 18 mcg IH DAILY #1 inh 08/13/16 Current Medications Acetaminophen (Tylenol -) 650 mg PO Q6H PRN PRN Reason: FEVER OR PAIN Last Admin: 09/23/16 06:11 Dose: 650 mg Aclidinium [place] (Tudorza -) 1 puff IH BID [facility] Last Admin: 09/22/16 21:45 Dose: 1 inh Albuterol Sulfate (Ventolin 0.083% Nebulizer Soln -) 1 amp NEB Q4H PRN PRN Reason: SHORT OF BREATH/WHEEZING Albuterol Sulfate (Ventolin 0.083% Nebulizer Soln -) 1 amp NEB QIDR [facility] Last Admin: 09/23/16 06:04 Dose: 1 amp Aspirin (Asa -) 81 mg PO DAILY [facility] Last Admin: 09/22/16 10:11 Dose: 81 mg Atorvastatin Calcium (Lipitor -) 40 mg PO HS [facility] Last Admin: 09/22/16 21:45 Dose: 40 mg Azithromycin (Zithromax -) 250 mg PO DAILY [facility] Last Admin: 09/22/16 15:05 Dose: 250 mg Benzocaine/Menthol (Cepacol Lozenge -) 1 each MM PRN PRN PRN Reason: SORE THROAT Last Admin: 09/22/16 22:40 Dose: 1 each Budesonide/Formoterol Fumarate (Symbicort 160/4.5mcg -) 2 puff IH BID [facility] Last Admin: 09/22/16 21:41 Dose: 1 inh Bupropion HCl (Wellbutrin Xl -) 300 mg PO DAILY [facility] Last Admin: 09/22/16 10:14 Dose: 300 mg Calcium Carbonate/Cholecalciferol (Os-Clarence 500+D -) 1 tab PO BID [facility] Last Admin: 09/22/16 21:28 Dose: 1 tab Clopidogrel Bisulfate (Plavix -) 75 mg PO DAILY [facility] Last Admin: 09/22/16 10:13 Dose: 75 mg Cyclobenzaprine HCl (Flexeril -) 10 mg PO HS [facility] Last Admin: 09/22/16 21:27 Dose: 10 mg Diltiazem HCl (Cardizem Cd -) 120 mg PO DAILY [facility] Last Admin: 09/22/16 10:12 Dose: 120 mg Ferrous Sulfate (Feosol -) 325 mg PO TID [facility] Last Admin: 09/23/16 06:11 Dose: 325 mg Lactic Acid (Lac-Hydrin 12% Cream -) 1 applic TP BID [facility] Last Admin: 09/22/16 21:46 Dose: 1 applic Losartan Potassium (Cozaar -) 100 mg PO DAILY [facility] Last Admin: 09/22/16 10:12 Dose: 100 mg Methylprednisolone Sodium Succinate (Solu-Medrol -) 60 mg IVPB Q8H-IV [facility] Last Admin: 09/23/16 01:10 Dose: 60 mg Montelukast Sodium (Singulair -) 10 mg PO HS [facility] Last Admin: 09/22/16 21:28 Dose: 10 mg Nicotine (Nicoderm Patch -) 21 mg TD DAILY [facility] Last Admin: 09/22/16 10:12 Dose: 21 mg Pantoprazole Sodium (Protonix -) 20 mg PO DAILY [facility] Last Admin: 09/22/16 10:13 Dose: 20 mg Pregabalin (Lyrica -) 75 mg PO TID [facility] Last Admin: 09/23/16 06:11 Dose: 75 mg Quetiapine Fumarate (Seroquel -) 50 mg PO BID [facility] Last Admin: 09/22/16 21:28 Dose: 50 mg Sertraline HCl (Zoloft -) 100 mg PO DAILY [facility] Last Admin: 09/22/16 10:14 Dose: 100 mg Zolpidem Tartrate (Ambien -) 5 mg PO HS PRN *Physical Exam - Vital Signs AFVSS HEENT: [place], EOM Intact Cor: RSR, No murmurs, No gallops Lungs: Clear to P&A Abd: Soft, Normal bowel sounds, No organomegaly Ext:No significant edema Skin: No rashes, Integument intact Abnormal Lab Results 09/22/16 09/22/16 09/22/16 05:35 12:20 12:20 WBC RDW Neutrophils % Lymphocytes % Monocytes % Chloride BUN Creatinine Random Glucose Iron 148 H Iron Saturation 56 H AST Alkaline Phosphatase Urine Protein 1+ H U Random Total Protein 55 H 09/23/16 09/23/16 05:35 05:35 WBC 19.3 H D RDW 15.8 H Neutrophils % 95.2 H Lymphocytes % 3.2 L D Monocytes % 1.5 L D Chloride 110 H BUN 32 H D Creatinine 1.4 H Random Glucose 141 H Iron Iron Saturation AST 14 L Alkaline Phosphatase 174 H Urine Protein U Random Total Protein a/p 65y F hx of COPD, asthma, anemia, htn, acid reflux presents with complaing of worsening cough/sob for the past 5 days, w/o any fever/chills. Pt also complaining of severe back pain when she is coughing and on palpation. Xray T spine shows chronic midthoracic compression and osteopenia Anemia: normocytic Hemoglobin dropped from 12 in Dec. to 9 multifactorial anemia anemia of CKD+ chronic disease due to COPD +/- gi losses check stool occult iron studies were done on ferrous sulfate ferritin was 53 check B12/folate/thyroid studies/SPEP/UPEP/SIFE/LDH/ESR/CRP transfuse for symptomatic anemia back pain --- will consider ct t/l spine
[2016-09-22] MEDS: ACETAMINOPHEN 325 MG TABLET (FP) PO PRN (22:39)
[2016-09-22] MEDS: BENZOCAINE/MENTH/CETYLPYRD CL 1 EACH LOZENGE MM PRN (22:40)
[2016-09-23] MEDS: ALBUTEROL SO4 0.083% IH SOL 2.5 MG/3 ML VIAL.NEB. NEB SCH ×4 (00:15→23:03)
[2016-09-23] MEDS: methylPREDNISolone NA SUCC 125 MG/2 ML VIAL IVPB SCH ×3 (01:10→17:35)
[2016-09-23 06:06] LABS: SERUM IRON 148 ug/dL (27-139); TOTAL IRON BINDING CAPACITY 266 ug/dL (250-450); UIBC 118 ug/dL (118-369)
[2016-09-23] MEDS: PREGABALIN 75 MG CAPSULE PO SCH ×3 (06:11→21:27)
[2016-09-23] MEDS: FERROUS SO4 325 MG TABLET (FP) PO SCH ×3 (06:11→21:27)
[2016-09-23] MEDS: ACETAMINOPHEN 325 MG TABLET (FP) PO PRN (06:11)
[2016-09-23 07:39] LABS: MCH 28.8 pg (25.7-33.7); MCHC 32.6 g/dl (32.0-36.0); MEAN CELL VOLUME 88.3 fl (80-96); MEAN PLT VOLUME 8.7 fl (7.5-11.1); PLATELET COUNT 251 K/MM3 (134-434); RDW 15.8 % (11.6-15.6); WHITE BLOOD COUNT 19.3 K/mm3 (4.0-10.0)
[2016-09-23 08:14] LABS: ALBUMIN 3.5 g/dl (3.4-5.0); BILIRUBIN,TOTAL 0.3 mg/dL (0.2-1.0); CREATININE 1.4 mg/dL (0.55-1.02); PHOSPHOROUS 3.4 mg/dL (2.5-4.9); TOT PROT 7.2 g/dl (6.4-8.2)
[2016-09-23 08:28] LABS: BASOPHIL 0.1 % (0-2.0); NEUTROPHILS 95.2 % (42.8-82.8)
[2016-09-23] MEDS ORDERED: QUEtiapine FUMARATE 25 MG TABLET (FP) ONE (09:51)
[2016-09-23] MEDS: NICOTINE 21 MG/24 HOURS TOPICAL PATCH TD SCH (10:07)
[2016-09-23] MEDS: AZITHROMYCIN 250 MG TABLET (FP) PO SCH (10:09)
[2016-09-23] MEDS: PANTOPRAZOLE 20 MG TABLET (FP) PO SCH (10:09)
[2016-09-23] MEDS: ASPIRIN 81 MG CHEWABLE TABLETS PO SCH (10:09)
[2016-09-23] MEDS: CLOPIDOGREL BISULFATE 75 MG TABLET (FP) PO SCH (10:09)
[2016-09-23] MEDS: LOSARTAN POTASSIUM 50 MG TABLET (FP) PO SCH (10:10)
[2016-09-23] MEDS: QUEtiapine FUMARATE 50 MG TABLET PO SCH ×2 (10:10→21:27)
[2016-09-23] MEDS: SERTRALINE HCL 50 MG TABLET (FP) PO SCH (10:11)
[2016-09-23] MEDS: BENZOCAINE/MENTH/CETYLPYRD CL 1 EACH LOZENGE MM PRN (10:11)
[2016-09-23] MEDS: CALCIUM 500MG/VIT-D 200 UNITS COMBO TABLET (FP) PO SCH ×2 (10:12→21:27)
[2016-09-23] MEDS: ACLIDINIUM BROMIDE 400 MCG/INH AERO.POWD IH SCH ×2 (10:14→21:27)
[2016-09-23] MEDS ORDERED: PT OWN MED DRAWER 7, Y5N ONE (10:14)
[2016-09-23] MEDS: BUDESONIDE/FORMETEROL FUMARATE 160/4.5 mcg INHALER IH SCH ×2 (10:14→21:27)
--- NOTE | 2016-09-23 10:56 | PN ---
Progress Note, Physician Chief Complaint: complains of some swallowing issues but breathing improved. History of Present Illness: Patient with multiple illnesses including Hypertension,COPD, Recent Anemia requiring transfusion, ? Dementia as per Dr. Kumar's PE note has less SOB since being on IV Steroids.Still complains of some difficulty swallowing which was diagnosed as thrush by ENT recently and treated. Renal lab and Hb now stable on recent Lab. - Current Medication List Current Medications: Active Medications Acetaminophen (Tylenol -) 650 mg PO Q6H PRN PRN Reason: FEVER OR PAIN Last Admin: 09/23/16 06:11 Dose: 650 mg Aclidinium [place] (Tudorza -) 1 puff IH BID [facility] Last Admin: 09/23/16 10:14 Dose: 11 inh Albuterol Sulfate (Ventolin 0.083% Nebulizer Soln -) 1 amp NEB Q4H PRN PRN Reason: SHORT OF BREATH/WHEEZING Albuterol Sulfate (Ventolin 0.083% Nebulizer Soln -) 1 amp NEB QIDR [facility] Last Admin: 09/23/16 06:04 Dose: 1 amp Aspirin (Asa -) 81 mg PO DAILY [facility] Last Admin: 09/23/16 10:09 Dose: 81 mg Atorvastatin Calcium (Lipitor -) 40 mg PO HS [facility] Last Admin: 09/22/16 21:45 Dose: 40 mg Azithromycin (Zithromax -) 250 mg PO DAILY [facility] Last Admin: 09/23/16 10:09 Dose: 250 mg Benzocaine/Menthol (Cepacol Lozenge -) 1 each MM PRN PRN PRN Reason: SORE THROAT Last Admin: 09/23/16 10:11 Dose: 1 each Budesonide/Formoterol Fumarate (Symbicort 160/4.5mcg -) 2 puff IH BID [facility] Last Admin: 09/23/16 10:14 Dose: 2 inh Bupropion HCl (Wellbutrin Xl -) 300 mg PO DAILY [facility] Last Admin: 09/23/16 10:11 Dose: 300 mg Calcium Carbonate/Cholecalciferol (Os-Clarence 500+D -) 1 tab PO BID [facility] Last Admin: 09/23/16 10:12 Dose: Not Given Clopidogrel Bisulfate (Plavix -) 75 mg PO DAILY [facility] Last Admin: 09/23/16 10:09 Dose: 75 mg Cyclobenzaprine HCl (Flexeril -) 10 mg PO HS [facility] Last Admin: 09/22/16 21:27 Dose: 10 mg Diltiazem HCl (Cardizem Cd -) 120 mg PO DAILY [facility] Last Admin: 09/23/16 10:08 Dose: 120 mg Ferrous Sulfate (Feosol -) 325 mg PO TID [facility] Last Admin: 09/23/16 06:11 Dose: 325 mg Lactic Acid (Lac-Hydrin 12% Cream -) 1 applic TP BID [facility] Last Admin: 09/22/16 21:46 Dose: 1 applic Losartan Potassium (Cozaar -) 100 mg PO DAILY [facility] Last Admin: 09/23/16 10:10 Dose: 100 mg Methylprednisolone Sodium Succinate (Solu-Medrol -) 60 mg IVPB Q8H-IV [facility] Last Admin: 09/23/16 10:08 Dose: 60 mg Montelukast Sodium (Singulair -) 10 mg PO HS [facility] Last Admin: 09/22/16 21:28 Dose: 10 mg Nicotine (Nicoderm Patch -) 21 mg TD DAILY [facility] Last Admin: 09/23/16 10:07 Dose: 21 mg Nystatin (Nystatin Oral Suspension -) 500,000 units PO Q6HPO [facility] Pantoprazole Sodium (Protonix -) 20 mg PO DAILY [facility] Last Admin: 09/23/16 10:09 Dose: 20 mg Pregabalin (Lyrica -) 75 mg PO TID [facility] Last Admin: 09/23/16 06:11 Dose: 75 mg Quetiapine Fumarate (Seroquel -) 50 mg PO BID [facility] Last Admin: 09/23/16 10:10 Dose: 50 mg Sertraline HCl (Zoloft -) 100 mg PO DAILY [facility] Last Admin: 09/23/16 10:11 Dose: 100 mg Zolpidem Tartrate (Ambien -) 5 mg PO HS PRN - Objective Vital Signs: Vital Signs Temperature 98.7 F 09/23/16 05:25 Pulse Rate 94 H 09/23/16 05:25 Respiratory Rate 20 09/23/16 05:25 Blood Pressure 148/66 09/23/16 05:25 O2 Sat by Pulse Oximetry (%) 98 09/22/16 20:04 Constitutional: Yes: Anxious HENT: Yes: Thrush (very slight on corners of tongue only.) Cardiovascular: Yes: Regular Rate and Rhythm Respiratory: Yes: Rhonchi (few rhonchi at bases; no wheezes heard.) Gastrointestinal: Yes: Soft Genitourinary: No: Lemons Present Edema: No Neurological: Yes: Alert Labs: CBC, BMP 09/23/16 05:35 09/23/16 05:35 Problem List - Problems (1) Anemia Assessment/Plan: Hb 11 GM after transfusion. Code(s): D64.9 - ANEMIA, UNSPECIFIED Qualifiers: Anemia type: unspecified type Qualified Code(s): D64.9 - Anemia, unspecified (2) Anxiety Assessment/Plan: Improved now that her breathing is better. Code(s): F41.9 - ANXIETY DISORDER, UNSPECIFIED (3) Decompensated COPD with exacerbation (chronic obstructive pulmonary disease) Assessment/Plan: No wheezes today after IV steroids. Code(s): J44.1 - CHRONIC OBSTRUCTIVE PULMONARY DISEASE W (ACUTE) EXACERBATION (4) Acute renal failure Assessment/Plan: renal lab stable; to follow. Code(s): N17.9 - ACUTE KIDNEY FAILURE, UNSPECIFIED (5) Thrush, oral Assessment/Plan: slight coating on the sides of her tongue; will Rx: Nystatin suspension. Code(s): B37.0 - CANDIDAL STOMATITIS
--- NOTE | 2016-09-23 11:19 | PN ---
Progress Note (short form) - Note Progress Note: Renal Follow up for CKD Pt seen and examined at the bedside No acute complaints no chest pain, fever, chills SOB improved Vital Signs Temperature 98.7 F 09/23/16 05:25 Pulse Rate 94 H 09/23/16 05:25 Respiratory Rate 20 09/23/16 05:25 Blood Pressure 148/66 09/23/16 05:25 O2 Sat by Pulse Oximetry (%) 98 09/22/16 20:04 Intake & Output 09/20/16 09/21/16 09/22/16 09/23/16 23:59 23:59 23:59 23:59 Intake Total 330 900 Balance 330 900 Weight 180 lb 177 lb 2 oz Gen: more calm today CVS: RRR Lungs: CTA Abd: soft NT/ND Ext: No edmea, clubbing or cyanosis CBC, BMP 09/23/16 05:35 09/23/16 05:35 Current Medications Acetaminophen (Tylenol -) 650 mg PO Q6H PRN PRN Reason: FEVER OR PAIN Last Admin: 09/23/16 06:11 Dose: 650 mg Aclidinium [place] (Tudorza -) 1 puff IH BID [facility] Last Admin: 09/23/16 10:14 Dose: 11 inh Albuterol Sulfate (Ventolin 0.083% Nebulizer Soln -) 1 amp NEB Q4H PRN PRN Reason: SHORT OF BREATH/WHEEZING Albuterol Sulfate (Ventolin 0.083% Nebulizer Soln -) 1 amp NEB QIDR [facility] Last Admin: 09/23/16 06:04 Dose: 1 amp Aspirin (Asa -) 81 mg PO DAILY [facility] Last Admin: 09/23/16 10:09 Dose: 81 mg Atorvastatin Calcium (Lipitor -) 40 mg PO HS [facility] Last Admin: 09/22/16 21:45 Dose: 40 mg Azithromycin (Zithromax -) 250 mg PO DAILY [facility] Last Admin: 09/23/16 10:09 Dose: 250 mg Benzocaine/Menthol (Cepacol Lozenge -) 1 each MM PRN PRN PRN Reason: SORE THROAT Last Admin: 09/23/16 10:11 Dose: 1 each Budesonide/Formoterol Fumarate (Symbicort 160/4.5mcg -) 2 puff IH BID [facility] Last Admin: 09/23/16 10:14 Dose: 2 inh Bupropion HCl (Wellbutrin Xl -) 300 mg PO DAILY [facility] Last Admin: 09/23/16 10:11 Dose: 300 mg Calcium Carbonate/Cholecalciferol (Os-Clarence 500+D -) 1 tab PO BID [facility] Last Admin: 09/23/16 10:12 Dose: Not Given Clopidogrel Bisulfate (Plavix -) 75 mg PO DAILY [facility] Last Admin: 09/23/16 10:09 Dose: 75 mg Cyclobenzaprine HCl (Flexeril -) 10 mg PO HS [facility] Last Admin: 09/22/16 21:27 Dose: 10 mg Diltiazem HCl (Cardizem Cd -) 120 mg PO DAILY [facility] Last Admin: 09/23/16 10:08 Dose: 120 mg Ferrous Sulfate (Feosol -) 325 mg PO TID [facility] Last Admin: 09/23/16 06:11 Dose: 325 mg Lactic Acid (Lac-Hydrin 12% Cream -) 1 applic TP BID [facility] Last Admin: 09/22/16 21:46 Dose: 1 applic Losartan Potassium (Cozaar -) 100 mg PO DAILY [facility] Last Admin: 09/23/16 10:10 Dose: 100 mg Methylprednisolone Sodium Succinate (Solu-Medrol -) 60 mg IVPB Q8H-IV [facility] Last Admin: 09/23/16 10:08 Dose: 60 mg Montelukast Sodium (Singulair -) 10 mg PO HS [facility] Last Admin: 09/22/16 21:28 Dose: 10 mg Nicotine (Nicoderm Patch -) 21 mg TD DAILY [facility] Last Admin: 09/23/16 10:07 Dose: 21 mg Nystatin (Nystatin Oral Suspension -) 500,000 units PO Q6HPO [facility] Pantoprazole Sodium (Protonix -) 20 mg PO DAILY [facility] Last Admin: 09/23/16 10:09 Dose: 20 mg Pregabalin (Lyrica -) 75 mg PO TID [facility] Last Admin: 09/23/16 06:11 Dose: 75 mg Quetiapine Fumarate (Seroquel -) 50 mg PO BID [facility] Last Admin: 09/23/16 10:10 Dose: 50 mg Sertraline HCl (Zoloft -) 100 mg PO DAILY [facility] Last Admin: 09/23/16 10:11 Dose: 100 mg Zolpidem Tartrate (Ambien -) 5 mg PO HS PRN A/P 65 year old woman with PMhx of non-proteinuric CKD stage 3, hypertension anxiety disorder who presented with sob and found to have Anemia and Cr of 1.5. #Acute SOB secondary to COPD exacerbation +/- Anemia Continue IV steroids and Nebs as per pulmonary Supplemental O2 as needed #Aacute on Chronic Anemia s/p PRBC transfusion iron saturation is at goal start Aranesp SC Qweek #CKD Stage 3 Renal function at baseline BUN up trending because of steroids, no uremia continue losartan avoid nsads and other nephrotoxins #Anxiety disorder Continue zolfot, seroquel may need additional medications Consider psych eval Thank you Will follow José Manuel Reese DO
--- NOTE | 2016-09-23 12:27 | PN ---
Progress Note, Physician History of Present Illness: pulmonary alert,feeling better,less dyspneic - Current Medication List Current Medications: Active Medications Acetaminophen (Tylenol -) 650 mg PO Q6H PRN PRN Reason: FEVER OR PAIN Last Admin: 09/23/16 06:11 Dose: 650 mg Aclidinium [place] (Tudorza -) 1 puff IH BID [facility] Last Admin: 09/23/16 10:14 Dose: 11 inh Albuterol Sulfate (Ventolin 0.083% Nebulizer Soln -) 1 amp NEB Q4H PRN PRN Reason: SHORT OF BREATH/WHEEZING Albuterol Sulfate (Ventolin 0.083% Nebulizer Soln -) 1 amp NEB QIDR [facility] Last Admin: 09/23/16 12:01 Dose: 1 amp Aspirin (Asa -) 81 mg PO DAILY [facility] Last Admin: 09/23/16 10:09 Dose: 81 mg Atorvastatin Calcium (Lipitor -) 40 mg PO HS [facility] Last Admin: 09/22/16 21:45 Dose: 40 mg Azithromycin (Zithromax -) 250 mg PO DAILY [facility] Last Admin: 09/23/16 10:09 Dose: 250 mg Benzocaine/Menthol (Cepacol Lozenge -) 1 each MM PRN PRN PRN Reason: SORE THROAT Last Admin: 09/23/16 10:11 Dose: 1 each Budesonide/Formoterol Fumarate (Symbicort 160/4.5mcg -) 2 puff IH BID [facility] Last Admin: 09/23/16 10:14 Dose: 2 inh Bupropion HCl (Wellbutrin Xl -) 300 mg PO DAILY [facility] Last Admin: 09/23/16 10:11 Dose: 300 mg Calcium Carbonate/Cholecalciferol (Os-Clarence 500+D -) 1 tab PO BID [facility] Last Admin: 09/23/16 10:12 Dose: Not Given Clopidogrel Bisulfate (Plavix -) 75 mg PO DAILY [facility] Last Admin: 09/23/16 10:09 Dose: 75 mg Cyclobenzaprine HCl (Flexeril -) 10 mg PO HS [facility] Last Admin: 09/22/16 21:27 Dose: 10 mg Darbepoetin Miqu[place] (Aranesp -) 40 mcg SQ Q7D@1000 [facility] Diltiazem HCl (Cardizem Cd -) 120 mg PO DAILY [facility] Last Admin: 09/23/16 10:08 Dose: 120 mg Ferrous Sulfate (Feosol -) 325 mg PO TID [facility] Last Admin: 09/23/16 06:11 Dose: 325 mg Lactic Acid (Lac-Hydrin 12% Cream -) 1 applic TP BID [facility] Last Admin: 09/22/16 21:46 Dose: 1 applic Losartan Potassium (Cozaar -) 100 mg PO DAILY [facility] Last Admin: 09/23/16 10:10 Dose: 100 mg Methylprednisolone Sodium Succinate (Solu-Medrol -) 60 mg IVPB Q8H-IV [facility] Last Admin: 09/23/16 10:08 Dose: 60 mg Montelukast Sodium (Singulair -) 10 mg PO HS [facility] Last Admin: 09/22/16 21:28 Dose: 10 mg Nicotine (Nicoderm Patch -) 21 mg TD DAILY [facility] Last Admin: 09/23/16 10:07 Dose: 21 mg Nystatin (Nystatin Oral Suspension -) 500,000 units PO Q6HPO [facility] Pantoprazole Sodium (Protonix -) 20 mg PO DAILY [facility] Last Admin: 09/23/16 10:09 Dose: 20 mg Pregabalin (Lyrica -) 75 mg PO TID [facility] Last Admin: 09/23/16 06:11 Dose: 75 mg Quetiapine Fumarate (Seroquel -) 50 mg PO BID [facility] Last Admin: 09/23/16 10:10 Dose: 50 mg Sertraline HCl (Zoloft -) 100 mg PO DAILY [facility] Last Admin: 09/23/16 10:11 Dose: 100 mg Zolpidem Tartrate (Ambien -) 5 mg PO HS PRN - Objective Vital Signs: Vital Signs Temperature 98.7 F 09/23/16 05:25 Pulse Rate 89 09/23/16 10:00 Respiratory Rate 20 09/23/16 10:00 Blood Pressure 143/74 09/23/16 10:00 O2 Sat by Pulse Oximetry (%) 96 09/23/16 09:00 Constitutional: Yes: Well Nourished, Calm Eyes: Yes: WNL HENT: Yes: WNL Neck: Yes: WNL Cardiovascular: Yes: Regular Rate and Rhythm, S1, S2 Respiratory: Yes: Rhonchi, Wheezes (scatter) Gastrointestinal: Yes: Normal Bowel Sounds, Soft Extremities: Yes: WNL Edema: No Labs: CBC, BMP 09/23/16 05:35 09/23/16 05:35 Problem List - Problems (1) Anemia Code(s): D64.9 - ANEMIA, UNSPECIFIED Qualifiers: Anemia type: unspecified type Qualified Code(s): D64.9 - Anemia, unspecified (2) Anxiety Code(s): F41.9 - ANXIETY DISORDER, UNSPECIFIED (3) CKD (chronic kidney disease) Code(s): N18.9 - CHRONIC KIDNEY DISEASE, UNSPECIFIED Qualifiers: Chronic kidney disease stage: unspecified stage Qualified Code(s): N18.9 - Chronic kidney disease, unspecified (4) Dyspnea on exertion Code(s): R06.09 - OTHER FORMS OF DYSPNEA (5) Chest pain Code(s): R07.9 - CHEST PAIN, UNSPECIFIED (6) Hyperlipidemia Code(s): E78.5 - HYPERLIPIDEMIA, UNSPECIFIED (7) Hypertension Code(s): I10 - ESSENTIAL (PRIMARY) HYPERTENSION (8) Smokes cigarettes Code(s): F17.210 - NICOTINE DEPENDENCE, CIGARETTES, UNCOMPLICATED (9) Symptomatic anemia Code(s): D64.9 - ANEMIA, UNSPECIFIED (10) COPD (chronic obstructive pulmonary disease) Code(s): J44.9 - CHRONIC OBSTRUCTIVE PULMONARY DISEASE, UNSPECIFIED Qualifiers : COPD type: COPD with acute exacerbation Qualified Code(s): J44.1 - Chronic obstructive pulmonary disease with (acute) exacerbation (11) Decompensated COPD with exacerbation (chronic obstructive pulmonary disease ) Code(s): J44.1 - CHRONIC OBSTRUCTIVE PULMONARY DISEASE W (ACUTE) EXACERBATION Assessment/Plan IMP COPD EXACERBATION IMPROVING ANEMIA CHEST PAIN CKD STAGE 3 HTN SMOKER PLAN IV STEROIDS SAME DOSE INHALED BRONCHODILATORS NASAL O2 SMOKING CESSATION DISCUSSED DR MARIE Problem List - Problems (1) Anemia Code(s): D64.9 - ANEMIA, UNSPECIFIED Qualifiers: Anemia type: unspecified type Qualified Code(s): D64.9 - Anemia, unspecified (2) Anxiety Code(s): F41.9 - ANXIETY DISORDER, UNSPECIFIED (3) CKD (chronic kidney disease) Code(s): N18.9 - CHRONIC KIDNEY DISEASE, UNSPECIFIED Qualifiers: Chronic kidney disease stage: unspecified stage Qualified Code(s): N18.9 - Chronic kidney disease, unspecified (4) Dyspnea on exertion Code(s): R06.09 - OTHER FORMS OF DYSPNEA (5) Chest pain Code(s): R07.9 - CHEST PAIN, UNSPECIFIED (6) Hyperlipidemia Code(s): E78.5 - HYPERLIPIDEMIA, UNSPECIFIED (7) Hypertension Code(s): I10 - ESSENTIAL (PRIMARY) HYPERTENSION (8) Smokes cigarettes Code(s): F17.210 - NICOTINE DEPENDENCE, CIGARETTES, UNCOMPLICATED (9) Symptomatic anemia Code(s): D64.9 - ANEMIA, UNSPECIFIED (10) COPD (chronic obstructive pulmonary disease) Code(s): J44.9 - CHRONIC OBSTRUCTIVE PULMONARY DISEASE, UNSPECIFIED Qualifiers : COPD type: COPD with acute exacerbation Qualified Code(s): J44.1 - Chronic obstructive pulmonary disease with (acute) exacerbation (11) Decompensated COPD with exacerbation (chronic obstructive pulmonary disease ) Code(s): J44.1 - CHRONIC OBSTRUCTIVE PULMONARY DISEASE W (ACUTE) EXACERBATION
[2016-09-23] MEDS ORDERED: Darbepoetin Alfa in Polysorbat 40 MCG/0.4 DISP.SYRIN SQ SCH (12:30)
[2016-09-23] MEDS: AMMONIUM LACTATE 12% CREAM 140 GM TUBE TP SCH ×2 (12:51→21:28)
[2016-09-23] MEDS: NYSTATIN 500,000 UNITS/5 ML SUSPENSION PO SCH ×3 (12:52→23:49)
--- NOTE | 2016-09-23 14:46 | CONS ---
DATE OF CONSULTATION: 09/22/2016 PULMONARY CONSULTATION REFERRING PHYSICIAN: Mariano Kumar MD HISTORY OF PRESENT ILLNESS: The patient is a 65-year-old white female known from previous hospitalization as well as office followup with advanced COPD not on home oxygen, a long-standing history of tobacco use, currently still smoking, a history of respiratory failure requiring ventilatory support, chronic kidney disease stage 3, hypertension, history of SBO, PAD, anemia, admitted to [facility] with a complaint of increasing shortness of breath. The patient also complained of some chest discomfort. States for the past few days prior to admission developed shortness of breath. On the day of admission, symptoms increased in severity, associated with coughing as well as chest pain radiating to the back. She presented to the emergency room as above. In the ER, she was noted to be in moderate respiratory distress. She was treated with inhaled bronchodilators and steroids with good response and transferred to the medical telemetry unit for further monitoring. She denies any fevers or chills. Denies hemoptysis. Denies any nausea, vomiting or diaphoresis. As stated before, she has a history of tobacco use and currently still smokes a few cigarettes daily. PAST MEDICAL HISTORY: Advanced COPD, hypertension, chronic kidney disease stage 3, SBO, PAD, anemia. SOCIAL HISTORY: Positive for tobacco. No occupational exposures. MEDICATIONS: Medications prior to admission included ProAir, aspirin, Symbicort 160, bupropion, calcium, Plavix, losartan, Singulair, omeprazole, Seroquel, cyclobenzaprine, Lyrica, Lipitor, Zithromax, Cardizem prednisone and Spiriva. Current medications include Symbicort, Solu-Medrol, Cozaar, Lyrica, Wellbutrin, Zoloft, Tudorza, Seroquel, Ambien, NicoDerm, albuterol, Cardizem, Flexeril, Lipitor, Feosol, montelukast, aspirin, Plavix, Protonix. REVIEW OF SYSTEMS: Positive cough, positive shortness of breath, positive orthopnea, positive chest pain, positive back pain. No nausea, no vomiting, no fever, no chills, no hemoptysis. PHYSICAL EXAMINATION: General: The patient is a well-developed, well-nourished female, awake, alert, dyspneic but in no acute distress. Vitals: She is currently afebrile. Heart rate is 107, respiratory rate 28, blood pressure 129/64. O2 saturation is 98% on 3 L. HEENT: Normocephalic, atraumatic. Neck: Supple. Heart: Regular S1, S2. Chest: Scattered bilateral wheezes. Abdomen: Soft. Bowel sounds are positive. Extremities: Without cyanosis or edema. DIAGNOSTIC STUDIES: BUN 24, creatinine 1.5. WBC 9.1; hemoglobin 10.7; hematocrit 32.2; platelet count 237,000. INR 1.15. Chest x-ray reveals no infiltrates, no effusions. IMPRESSION: 1. Dyspnea secondary to acute exacerbation of chronic obstructive pulmonary disease. 2. Chest pain. 3. Anemia. 4. Chronic kidney disease, stage 3. 5. Hypertension. 6. Tobacco abuse. PLAN: IV steroids, inhaled bronchodilators, supplemental oxygen, smoking cessation, cardiac evaluation. Obtain followup chest x-rays. Nirav [id number] MTDD
[2016-09-23] MEDS: CYCLOBENZAPRINE HCL 10 MG TABLET (FP) PO SCH (21:27)
[2016-09-23] MEDS: ATORVASTATIN CA 40 MG TABLET (FP) PO SCH (21:27)
[2016-09-23] MEDS: MONTELUKAST NA 10 MG TABLET PO SCH (21:27)
[2016-09-24] MEDS: methylPREDNISolone NA SUCC 125 MG/2 ML VIAL IVPB SCH ×3 (01:18→17:34)
[2016-09-24] MEDS: NYSTATIN 500,000 UNITS/5 ML SUSPENSION PO SCH ×4 (06:17→23:15)
[2016-09-24] MEDS: PREGABALIN 75 MG CAPSULE PO SCH ×3 (06:17→22:08)
[2016-09-24] MEDS: FERROUS SO4 325 MG TABLET (FP) PO SCH ×3 (06:17→22:09)
[2016-09-24] MEDS: ACETAMINOPHEN 325 MG TABLET (FP) PO PRN (06:19)
[2016-09-24] MEDS: ALBUTEROL SO4 0.083% IH SOL 2.5 MG/3 ML VIAL.NEB. NEB SCH ×3 (06:30→17:44)
[2016-09-24 08:10] LABS: BASOPHIL 0.1 % (0-2.0); MCH 28.7 pg (25.7-33.7); MCHC 32.3 g/dl (32.0-36.0); MEAN CELL VOLUME 88.7 fl (80-96); MEAN PLT VOLUME 8.5 fl (7.5-11.1); NEUTROPHILS 95.7 % (42.8-82.8); PLATELET COUNT 269 K/MM3 (134-434); RDW 15.8 % (11.6-15.6); WHITE BLOOD COUNT 20.9 K/mm3 (4.0-10.0)
[2016-09-24 08:36] LABS: ALBUMIN 3.4 g/dl (3.4-5.0); BILIRUBIN,TOTAL 0.3 mg/dL (0.2-1.0); C-REACTIVE PROTEIN 1.4 MG/DL (0.00-0.3); CALCIUM 8.9 mg/dL (8.5-10.1); CREATININE 1.5 mg/dL (0.55-1.02); MAGNESIUM 2.3 mg/dL (1.8-2.4); PHOSPHOROUS 3.6 mg/dL (2.5-4.9)
[2016-09-24 08:41] LABS: FREE T4 0.7 ng/dl (0.76-1.46); THYROID STIMULATING HORMONE 0.1 uIU/ml (0.358-3.74)
[2016-09-24] MEDS ORDERED: PT OWN MED DRAWER 7, Y5N ONE (10:11)
[2016-09-24] MEDS: PANTOPRAZOLE 20 MG TABLET (FP) PO SCH (10:16)
[2016-09-24] MEDS: LOSARTAN POTASSIUM 50 MG TABLET (FP) PO SCH (10:16)
[2016-09-24] MEDS: CLOPIDOGREL BISULFATE 75 MG TABLET (FP) PO SCH (10:16)
[2016-09-24] MEDS: CALCIUM 500MG/VIT-D 200 UNITS COMBO TABLET (FP) PO SCH ×2 (10:16→22:10)
[2016-09-24] MEDS: SERTRALINE HCL 50 MG TABLET (FP) PO SCH (10:16)
[2016-09-24] MEDS: ASPIRIN 81 MG CHEWABLE TABLETS PO SCH (10:16)
[2016-09-24] MEDS: AZITHROMYCIN 250 MG TABLET (FP) PO SCH (10:16)
[2016-09-24] MEDS: QUEtiapine FUMARATE 50 MG TABLET PO SCH ×2 (10:17→22:09)
[2016-09-24] MEDS: ACLIDINIUM BROMIDE 400 MCG/INH AERO.POWD IH SCH ×2 (10:17→22:11)
[2016-09-24] MEDS: AMMONIUM LACTATE 12% CREAM 140 GM TUBE TP SCH ×2 (10:18→22:12)
[2016-09-24] MEDS: BUDESONIDE/FORMETEROL FUMARATE 160/4.5 mcg INHALER IH SCH ×2 (10:18→22:11)
[2016-09-24] MEDS: NICOTINE 21 MG/24 HOURS TOPICAL PATCH TD SCH (10:20)
[2016-09-24] MEDS: BENZOCAINE/MENTH/CETYLPYRD CL 1 EACH LOZENGE MM PRN (10:21)
--- NOTE | 2016-09-24 13:06 | PN ---
Progress Note (short form) - Note Progress Note: Renal Follow up for CKD Pt seen and examined at the bedside continues to have mild cough and chest discomfort when she coughs no Abd pain, N/V/D good urine output Vital Signs Temperature 98.3 F 09/24/16 09:33 Pulse Rate 84 09/24/16 09:33 Respiratory Rate 16 09/24/16 09:33 Blood Pressure 139/73 09/24/16 09:33 O2 Sat by Pulse Oximetry (%) 93 L 09/24/16 09:00 Intake & Output 09/21/16 09/22/16 09/23/16 09/24/16 23:59 23:59 23:59 23:59 Intake Total 330 1930 250 Balance 330 1930 250 Weight 180 lb 177 lb 2 oz Gen: more calm today CVS: RRR Lungs: CTA Abd: soft NT/ND Ext: No edmea, clubbing or cyanosis CBC, BMP 09/24/16 06:00 09/24/16 06:00 Current Medications Acetaminophen (Tylenol -) 650 mg PO Q6H PRN PRN Reason: FEVER OR PAIN Last Admin: 09/24/16 06:19 Dose: 650 mg Aclidinium [place] (Tudorza -) 1 puff IH BID [facility] Last Admin: 09/24/16 10:17 Dose: 1 puff Albuterol Sulfate (Ventolin 0.083% Nebulizer Soln -) 1 amp NEB Q4H PRN PRN Reason: SHORT OF BREATH/WHEEZING Albuterol Sulfate (Ventolin 0.083% Nebulizer Soln -) 1 amp NEB QIDR [facility] Last Admin: 09/24/16 11:33 Dose: 1 amp Aspirin (Asa -) 81 mg PO DAILY [facility] Last Admin: 09/24/16 10:16 Dose: 81 mg Atorvastatin Calcium (Lipitor -) 40 mg PO HS [facility] Last Admin: 09/23/16 21:27 Dose: 40 mg Azithromycin (Zithromax -) 250 mg PO DAILY [facility] Last Admin: 09/24/16 10:16 Dose: 250 mg Benzocaine/Menthol (Cepacol Lozenge -) 1 each MM PRN PRN PRN Reason: SORE THROAT Last Admin: 09/24/16 10:21 Dose: 1 each Budesonide/Formoterol Fumarate (Symbicort 160/4.5mcg -) 2 puff IH BID [facility] Last Admin: 09/24/16 10:18 Dose: 2 puff Bupropion HCl (Wellbutrin Xl -) 300 mg PO DAILY [facility] Last Admin: 09/24/16 10:17 Dose: 300 mg Calcium Carbonate/Cholecalciferol (Os-Clarence 500+D -) 1 tab PO BID [facility] Last Admin: 09/24/16 10:16 Dose: 1 tab Clopidogrel Bisulfate (Plavix -) 75 mg PO DAILY [facility] Last Admin: 09/24/16 10:16 Dose: 75 mg Cyclobenzaprine HCl (Flexeril -) 10 mg PO [facility] Last Admin: 09/23/16 21:27 Dose: 10 mg Darbepoetin Miquel (Aranesp -) 40 mcg SQ Q7D@1000 [facility] Last Admin: 09/23/16 16:33 Dose: 40 mcg Diltiazem HCl (Cardizem Cd -) 120 mg PO DAILY [facility] Last Admin: 09/24/16 10:16 Dose: 120 mg Ferrous Sulfate (Feosol -) 325 mg PO TID [facility] Last Admin: 09/24/16 06:17 Dose: 325 mg Lactic Acid (Lac-Hydrin 12% Cream -) 1 applic TP BID [facility] Last Admin: 09/24/16 10:18 Dose: 1 applic Losartan Potassium (Cozaar -) 100 mg PO DAILY [facility] Last Admin: 09/24/16 10:16 Dose: 100 mg Methylprednisolone Sodium Succinate (Solu-Medrol -) 60 mg IVPB Q8H-IV [facility] Last Admin: 09/24/16 10:17 Dose: 60 mg Montelukast Sodium (Singulair -) 10 mg PO HS [facility] Last Admin: 09/23/16 21:27 Dose: 10 mg Nicotine (Nicoderm Patch -) 21 mg TD DAILY [facility] Last Admin: 09/24/16 10:20 Dose: 21 mg Nystatin (Nystatin Oral Suspension -) 500,000 units PO Q6HPO [facility] Last Admin: 09/24/16 11:45 Dose: 500,000 units Pantoprazole Sodium (Protonix -) 20 mg PO DAILY [facility] Last Admin: 09/24/16 10:16 Dose: 20 mg Pregabalin (Lyrica -) 75 mg PO TID [facility] Last Admin: 09/24/16 06:17 Dose: 75 mg Quetiapine Fumarate (Seroquel -) 50 mg PO BID [facility] Last Admin: 09/24/16 10:17 Dose: 50 mg Sertraline HCl (Zoloft -) 100 mg PO DAILY [facility] Last Admin: 09/24/16 10:16 Dose: 100 mg Zolpidem Tartrate (Ambien -) 5 mg PO HS PRN A/P 65 year old woman with PMhx of non-proteinuric CKD stage 3, hypertension anxiety disorder who presented with sob and found to have Anemia and Cr of 1.5. #Acute SOB secondary to COPD exacerbation +/- Anemia Continue IV steroids and Nebs as per pulmonary Supplemental O2 as needed #Aacute on Chronic Anemia hgb improved and stable If Hgb downtrends below 10 will need additional Epogen iron saturation acceptable #CKD Stage 3 Renal function at baseline BUN up trending because of steroids, no uremia continue losartan #Anxiety disorder Continue zolfot, seroquel José Manuel Reese DO
--- NOTE | 2016-09-24 13:25 | PN ---
Progress Note, Physician Chief Complaint: Ms Castellano says she is feeling much better, but at times has "spasms" in her chest causing shortness of breath. Currently shortness of breath is improved, no cp or n/v. - Current Medication List Current Medications: Active Medications Acetaminophen (Tylenol -) 650 mg PO Q6H PRN PRN Reason: FEVER OR PAIN Last Admin: 09/24/16 06:19 Dose: 650 mg Aclidinium [place] (Tudorza -) 1 puff IH BID [facility] Last Admin: 09/24/16 10:17 Dose: 1 puff Albuterol Sulfate (Ventolin 0.083% Nebulizer Soln -) 1 amp NEB Q4H PRN PRN Reason: SHORT OF BREATH/WHEEZING Albuterol Sulfate (Ventolin 0.083% Nebulizer Soln -) 1 amp NEB QIDR [facility] Last Admin: 09/24/16 11:33 Dose: 1 amp Aspirin (Asa -) 81 mg PO DAILY [facility] Last Admin: 09/24/16 10:16 Dose: 81 mg Atorvastatin Calcium (Lipitor -) 40 mg PO HS [facility] Last Admin: 09/23/16 21:27 Dose: 40 mg Azithromycin (Zithromax -) 250 mg PO DAILY [facility] Last Admin: 09/24/16 10:16 Dose: 250 mg Benzocaine/Menthol (Cepacol Lozenge -) 1 each MM PRN PRN PRN Reason: SORE THROAT Last Admin: 09/24/16 10:21 Dose: 1 each Budesonide/Formoterol Fumarate (Symbicort 160/4.5mcg -) 2 puff IH BID [facility] Last Admin: 09/24/16 10:18 Dose: 2 puff Bupropion HCl (Wellbutrin Xl -) 300 mg PO DAILY [facility] Last Admin: 09/24/16 10:17 Dose: 300 mg Calcium Carbonate/Cholecalciferol (Os-Clarence 500+D -) 1 tab PO BID [facility] Last Admin: 09/24/16 10:16 Dose: 1 tab Clopidogrel Bisulfate (Plavix -) 75 mg PO DAILY [facility] Last Admin: 09/24/16 10:16 Dose: 75 mg Cyclobenzaprine HCl (Flexeril -) 10 mg PO HS [facility] Last Admin: 09/23/16 21:27 Dose: 10 mg Darbepoetin [place] (Aranesp -) 40 mcg SQ Q7D@1000 [facility] Last Admin: 09/23/16 16:33 Dose: 40 mcg Diltiazem HCl (Cardizem Cd -) 120 mg PO DAILY [facility] Last Admin: 09/24/16 10:16 Dose: 120 mg Ferrous Sulfate (Feosol -) 325 mg PO TID [facility] Last Admin: 09/24/16 06:17 Dose: 325 mg Lactic Acid (Lac-Hydrin 12% Cream -) 1 applic TP BID [facility] Last Admin: 09/24/16 10:18 Dose: 1 applic Losartan Potassium (Cozaar -) 100 mg PO DAILY [facility] Last Admin: 09/24/16 10:16 Dose: 100 mg Methylprednisolone Sodium Succinate (Solu-Medrol -) 60 mg IVPB Q8H-IV [facility] Last Admin: 09/24/16 10:17 Dose: 60 mg Montelukast Sodium (Singulair -) 10 mg PO HS [facility] Last Admin: 09/23/16 21:27 Dose: 10 mg Nicotine (Nicoderm Patch -) 21 mg TD DAILY [facility] Last Admin: 09/24/16 10:20 Dose: 21 mg Nystatin (Nystatin Oral Suspension -) 500,000 units PO Q6HPO [facility] Last Admin: 09/24/16 11:45 Dose: 500,000 units Pantoprazole Sodium (Protonix -) 20 mg PO DAILY [facility] Last Admin: 09/24/16 10:16 Dose: 20 mg Pregabalin (Lyrica -) 75 mg PO TID [facility] Last Admin: 09/24/16 06:17 Dose: 75 mg Quetiapine Fumarate (Seroquel -) 50 mg PO BID [facility] Last Admin: 09/24/16 10:17 Dose: 50 mg Sertraline HCl (Zoloft -) 100 mg PO DAILY [facility] Last Admin: 09/24/16 10:16 Dose: 100 mg Zolpidem Tartrate (Ambien -) 5 mg PO HS PRN - Objective Vital Signs: Vital Signs Temperature 98.3 F 09/24/16 09:33 Pulse Rate 84 09/24/16 09:33 Respiratory Rate 16 09/24/16 09:33 Blood Pressure 139/73 09/24/16 09:33 O2 Sat by Pulse Oximetry (%) 93 L 09/24/16 09:00 Constitutional: Yes: No Distress, Calm, Obese Cardiovascular: Yes: Regular Rate and Rhythm. No: Gallop, Murmur, Rub Respiratory: Yes: Regular, On Nasal O2, Wheezes. No: Rales, Rhonchi Gastrointestinal: Yes: Normal Bowel Sounds, Soft. No: Distention, Tenderness Extremities: Yes: WNL Edema: No Labs: CBC, BMP 09/24/16 06:00 09/24/16 06:00 Assessment/Plan (1) COPD (chronic obstructive pulmonary disease) Assessment/Plan: -pulmonary consulted and note reviewed -continue bronchodilators -continue solumedrol -influenza panel negative Code(s): J44.9 - CHRONIC OBSTRUCTIVE PULMONARY DISEASE, UNSPECIFIED Qualifiers : COPD type: COPD with acute exacerbation Qualified Code(s): J44.1 - Chronic obstructive pulmonary disease with (acute) exacerbation (2) Symptomatic anemia Assessment/Plan: -transfused 1 unit -s/p epogen -stable Code(s): D64.9 - ANEMIA, UNSPECIFIED (3) CKD (chronic kidney disease) Assessment/Plan: -stable -renal evaluating Code(s): N18.9 - CHRONIC KIDNEY DISEASE, UNSPECIFIED Qualifiers: Chronic kidney disease stage: unspecified stage Qualified Code(s): N18.9 - Chronic kidney disease, unspecified (4) Hyperlipidemia Assessment/Plan: -continue statin Code(s): E78.5 - HYPERLIPIDEMIA, UNSPECIFIED (5) Hypertension Assessment/Plan: -well controlled -continue current regimen Code(s): I10 - ESSENTIAL (PRIMARY) HYPERTENSION (6) Anxiety Assessment/Plan: -continue zoloft, wellbutrin, seroquel, flexeril Code(s): F41.9 - ANXIETY DISORDER, UNSPECIFIED
--- NOTE | 2016-09-24 14:28 | PN ---
Progress Note, Physician History of Present Illness: pulmonary alert,less dyspneic. - Current Medication List Current Medications: Active Medications Acetaminophen (Tylenol -) 650 mg PO Q6H PRN PRN Reason: FEVER OR PAIN Last Admin: 09/24/16 06:19 Dose: 650 mg Aclidinium [place] (Tudorza -) 1 puff IH BID [facility] Last Admin: 09/24/16 10:17 Dose: 1 puff Albuterol Sulfate (Ventolin 0.083% Nebulizer Soln -) 1 amp NEB Q4H PRN PRN Reason: SHORT OF BREATH/WHEEZING Albuterol Sulfate (Ventolin 0.083% Nebulizer Soln -) 1 amp NEB QIDR [facility] Last Admin: 09/24/16 11:33 Dose: 1 amp Aspirin (Asa -) 81 mg PO DAILY [facility] Last Admin: 09/24/16 10:16 Dose: 81 mg Atorvastatin Calcium (Lipitor -) 40 mg PO HS [facility] Last Admin: 09/23/16 21:27 Dose: 40 mg Azithromycin (Zithromax -) 250 mg PO DAILY [facility] Last Admin: 09/24/16 10:16 Dose: 250 mg Benzocaine/Menthol (Cepacol Lozenge -) 1 each MM PRN PRN PRN Reason: SORE THROAT Last Admin: 09/24/16 10:21 Dose: 1 each Budesonide/Formoterol Fumarate (Symbicort 160/4.5mcg -) 2 puff IH BID [facility] Last Admin: 09/24/16 10:18 Dose: 2 puff Bupropion HCl (Wellbutrin Xl -) 300 mg PO DAILY [facility] Last Admin: 09/24/16 10:17 Dose: 300 mg Calcium Carbonate/Cholecalciferol (Os-Clarence 500+D -) 1 tab PO BID [facility] Last Admin: 09/24/16 10:16 Dose: 1 tab Clopidogrel Bisulfate (Plavix -) 75 mg PO DAILY [facility] Last Admin: 09/24/16 10:16 Dose: 75 mg Cyclobenzaprine HCl (Flexeril -) 10 mg PO HS [facility] Last Admin: 09/23/16 21:27 Dose: 10 mg Darbepoetin Miquel (Aranesp -) 40 mcg SQ Q7D@1000 [facility] Last Admin: 09/23/16 16:33 Dose: 40 mcg Diltiazem HCl (Cardizem Cd -) 120 mg PO DAILY [facility] Last Admin: 09/24/16 10:16 Dose: 120 mg Ferrous Sulfate (Feosol -) 325 mg PO TID [facility] Last Admin: 09/24/16 06:17 Dose: 325 mg Lactic Acid (Lac-Hydrin 12% Cream -) 1 applic TP BID [facility] Last Admin: 09/24/16 10:18 Dose: 1 applic Losartan Potassium (Cozaar -) 100 mg PO DAILY [facility] Last Admin: 09/24/16 10:16 Dose: 100 mg Methylprednisolone Sodium Succinate (Solu-Medrol -) 60 mg IVPB Q8H-IV [facility] Last Admin: 09/24/16 10:17 Dose: 60 mg Montelukast Sodium (Singulair -) 10 mg PO HS [facility] Last Admin: 09/23/16 21:27 Dose: 10 mg Nicotine (Nicoderm Patch -) 21 mg TD DAILY [facility] Last Admin: 09/24/16 10:20 Dose: 21 mg Nystatin (Nystatin Oral Suspension -) 500,000 units PO Q6HPO [facility] Last Admin: 09/24/16 11:45 Dose: 500,000 units Pantoprazole Sodium (Protonix -) 20 mg PO DAILY [facility] Last Admin: 09/24/16 10:16 Dose: 20 mg Pregabalin (Lyrica -) 75 mg PO TID [facility] Last Admin: 09/24/16 06:17 Dose: 75 mg Quetiapine Fumarate (Seroquel -) 50 mg PO BID [facility] Last Admin: 09/24/16 10:17 Dose: 50 mg Sertraline HCl (Zoloft -) 100 mg PO DAILY [facility] Last Admin: 09/24/16 10:16 Dose: 100 mg Zolpidem Tartrate (Ambien -) 5 mg PO HS PRN - Objective Vital Signs: Vital Signs Temperature 98.3 F 09/24/16 09:33 Pulse Rate 84 09/24/16 09:33 Respiratory Rate 16 09/24/16 09:33 Blood Pressure 139/73 09/24/16 09:33 O2 Sat by Pulse Oximetry (%) 93 L 09/24/16 09:00 Constitutional: Yes: Well Nourished, Calm Eyes: Yes: WNL HENT: Yes: WNL Neck: Yes: WNL Cardiovascular: Yes: Regular Rate and Rhythm, S1, S2 Respiratory: Yes: Wheezes (scattered aurelia wheezes) Gastrointestinal: Yes: Normal Bowel Sounds, Soft Extremities: Yes: WNL Edema: No Labs: CBC, BMP 09/24/16 06:00 09/24/16 06:00 Problem List - Problems (1) Anemia Code(s): D64.9 - ANEMIA, UNSPECIFIED Qualifiers: Anemia type: unspecified type Qualified Code(s): D64.9 - Anemia, unspecified (2) Anxiety Code(s): F41.9 - ANXIETY DISORDER, UNSPECIFIED (3) CKD (chronic kidney disease) Code(s): N18.9 - CHRONIC KIDNEY DISEASE, UNSPECIFIED Qualifiers: Chronic kidney disease stage: unspecified stage Qualified Code(s): N18.9 - Chronic kidney disease, unspecified (4) Dyspnea on exertion Code(s): R06.09 - OTHER FORMS OF DYSPNEA (5) Chest pain Code(s): R07.9 - CHEST PAIN, UNSPECIFIED (6) Hyperlipidemia Code(s): E78.5 - HYPERLIPIDEMIA, UNSPECIFIED (7) Hypertension Code(s): I10 - ESSENTIAL (PRIMARY) HYPERTENSION (8) Smokes cigarettes Code(s): F17.210 - NICOTINE DEPENDENCE, CIGARETTES, UNCOMPLICATED (9) Symptomatic anemia Code(s): D64.9 - ANEMIA, UNSPECIFIED (10) COPD (chronic obstructive pulmonary disease) Code(s): J44.9 - CHRONIC OBSTRUCTIVE PULMONARY DISEASE, UNSPECIFIED Qualifiers : COPD type: COPD with acute exacerbation Qualified Code(s): J44.1 - Chronic obstructive pulmonary disease with (acute) exacerbation (11) Decompensated COPD with exacerbation (chronic obstructive pulmonary disease ) Code(s): J44.1 - CHRONIC OBSTRUCTIVE PULMONARY DISEASE W (ACUTE) EXACERBATION Assessment/Plan IMP COPD EXACERBATION IMPROVING ANEMIA CHEST PAIN CKD STAGE 3 HTN SMOKER PLAN IV STEROIDS SAME DOSE INHALED BRONCHODILATORS NASAL O2 SMOKING CESSATION DISCUSSED DR MARIE Problem List - Problems (1) Anemia Code(s): D64.9 - ANEMIA, UNSPECIFIED Qualifiers: Anemia type: unspecified type Qualified Code(s): D64.9 - Anemia, unspecified (2) Anxiety Code(s): F41.9 - ANXIETY DISORDER, UNSPECIFIED (3) CKD (chronic kidney disease) Code(s): N18.9 - CHRONIC KIDNEY DISEASE, UNSPECIFIED Qualifiers: Chronic kidney disease stage: unspecified stage Qualified Code(s): N18.9 - Chronic kidney disease, unspecified (4) Dyspnea on exertion Code(s): R06.09 - OTHER FORMS OF DYSPNEA (5) Chest pain Code(s): R07.9 - CHEST PAIN, UNSPECIFIED (6) Hyperlipidemia Code(s): E78.5 - HYPERLIPIDEMIA, UNSPECIFIED (7) Hypertension Code(s): I10 - ESSENTIAL (PRIMARY) HYPERTENSION (8) Smokes cigarettes Code(s): F17.210 - NICOTINE DEPENDENCE, CIGARETTES, UNCOMPLICATED (9) Symptomatic anemia Code(s): D64.9 - ANEMIA, UNSPECIFIED (10) COPD (chronic obstructive pulmonary disease) Code(s): J44.9 - CHRONIC OBSTRUCTIVE PULMONARY DISEASE, UNSPECIFIED Qualifiers : COPD type: COPD with acute exacerbation Qualified Code(s): J44.1 - Chronic obstructive pulmonary disease with (acute) exacerbation (11) Decompensated COPD with exacerbation (chronic obstructive pulmonary disease ) Code(s): J44.1 - CHRONIC OBSTRUCTIVE PULMONARY DISEASE W (ACUTE) EXACERBATION
[2016-09-24] MEDS: MONTELUKAST NA 10 MG TABLET PO SCH (22:08)
[2016-09-24] MEDS: CYCLOBENZAPRINE HCL 10 MG TABLET (FP) PO SCH (22:09)
[2016-09-24] MEDS: ATORVASTATIN CA 40 MG TABLET (FP) PO SCH (22:09)
[2016-09-25] MEDS: ALBUTEROL SO4 0.083% IH SOL 2.5 MG/3 ML VIAL.NEB. NEB SCH ×5 (00:09→23:10)
[2016-09-25] MEDS: methylPREDNISolone NA SUCC 125 MG/2 ML VIAL IVPB SCH ×3 (02:32→17:27)
[2016-09-25] MEDS: PREGABALIN 75 MG CAPSULE PO SCH ×3 (06:09→21:36)
[2016-09-25] MEDS: FERROUS SO4 325 MG TABLET (FP) PO SCH ×3 (06:09→21:36)
[2016-09-25] MEDS: NYSTATIN 500,000 UNITS/5 ML SUSPENSION PO SCH ×3 (06:09→17:27)
[2016-09-25 08:06] LABS: HEMATOCRIT 34.9 % (34.0-46.6)
[2016-09-25 08:44] LABS: MCH 28.7 pg (25.7-33.7); MCHC 32.1 g/dl (32.0-36.0); MEAN CELL VOLUME 89.3 fl (80-96); MEAN PLT VOLUME 8.2 fl (7.5-11.1); PLATELET COUNT 260 K/MM3 (134-434); RDW 15.6 % (11.6-15.6); WHITE BLOOD COUNT 14.3 K/mm3 (4.0-10.0)
[2016-09-25 09:26] LABS: CALCIUM 9.4 mg/dL (8.5-10.1); CREATININE 1.4 mg/dL (0.55-1.02); MAGNESIUM 2.5 mg/dL (1.8-2.4); PHOSPHOROUS 3.7 mg/dL (2.5-4.9)
[2016-09-25] MEDS ORDERED: PT OWN MED DRAWER 7, Y5N ONE ×3 (09:41→21:02)
[2016-09-25] MEDS: ASPIRIN 81 MG CHEWABLE TABLETS PO SCH (10:00)
[2016-09-25 10:11] LABS: PLATELET COMMENT2 NO CLOTTING DETECTED; PLATELET ESTIMATE ADEQUATE (NORMAL)
[2016-09-25 10:12] LABS: PLATELET COMMENT3 FEW GIANT PLTS
[2016-09-25] MEDS: PANTOPRAZOLE 20 MG TABLET (FP) PO SCH (10:45)
[2016-09-25] MEDS: LOSARTAN POTASSIUM 50 MG TABLET (FP) PO SCH (10:51)
[2016-09-25] MEDS: CALCIUM 500MG/VIT-D 200 UNITS COMBO TABLET (FP) PO SCH ×2 (10:53→21:36)
[2016-09-25] MEDS: NICOTINE 21 MG/24 HOURS TOPICAL PATCH TD SCH (10:53)
[2016-09-25] MEDS: CLOPIDOGREL BISULFATE 75 MG TABLET (FP) PO SCH (10:54)
[2016-09-25] MEDS: QUEtiapine FUMARATE 50 MG TABLET PO SCH ×2 (10:56→21:36)
[2016-09-25] MEDS: SERTRALINE HCL 50 MG TABLET (FP) PO SCH (10:57)
[2016-09-25] MEDS: ACLIDINIUM BROMIDE 400 MCG/INH AERO.POWD IH SCH ×2 (10:57→21:37)
[2016-09-25] MEDS: BUDESONIDE/FORMETEROL FUMARATE 160/4.5 mcg INHALER IH SCH ×2 (10:57→21:53)
[2016-09-25] MEDS: AZITHROMYCIN 250 MG TABLET (FP) PO SCH (10:57)
--- NOTE | 2016-09-25 11:10 | PN ---
Progress Note, Physician History of Present Illness: Patient is in bed. Has some shortness of breath. On IV solumedrol. Denies any chest pain. Good urine output maintained. No GI issues. - Current Medication List Current Medications: Active Medications Acetaminophen (Tylenol -) 650 mg PO Q6H PRN PRN Reason: FEVER OR PAIN Last Admin: 09/24/16 06:19 Dose: 650 mg Aclidinium [place] (Tudorza -) 1 puff IH BID [facility] Last Admin: 09/24/16 22:11 Dose: 1 puff Albuterol Sulfate (Ventolin 0.083% Nebulizer Soln -) 1 amp NEB Q4H PRN PRN Reason: SHORT OF BREATH/WHEEZING Albuterol Sulfate (Ventolin 0.083% Nebulizer Soln -) 1 amp NEB QIDR [facility] Last Admin: 09/25/16 06:27 Dose: 1 amp Aspirin (Asa -) 81 mg PO DAILY [facility] Last Admin: 09/24/16 10:16 Dose: 81 mg Atorvastatin Calcium (Lipitor -) 40 mg PO HS [facility] Last Admin: 09/24/16 22:09 Dose: 40 mg Azithromycin (Zithromax -) 250 mg PO DAILY [facility] Last Admin: 09/24/16 10:16 Dose: 250 mg Benzocaine/Menthol (Cepacol Lozenge -) 1 each MM PRN PRN PRN Reason: SORE THROAT Last Admin: 09/24/16 10:21 Dose: 1 each Budesonide/Formoterol Fumarate (Symbicort 160/4.5mcg -) 2 puff IH BID [facility] Last Admin: 09/24/16 22:11 Dose: 2 puff Bupropion HCl (Wellbutrin Xl -) 300 mg PO DAILY [facility] Last Admin: 09/24/16 10:17 Dose: 300 mg Calcium Carbonate/Cholecalciferol (Os-Clarence 500+D -) 1 tab PO BID [facility] Last Admin: 09/24/16 22:10 Dose: Not Given Clopidogrel Bisulfate (Plavix -) 75 mg PO DAILY [facility] Last Admin: 09/24/16 10:16 Dose: 75 mg Cyclobenzaprine HCl (Flexeril -) 10 mg PO HS [facility] Last Admin: 09/24/16 22:09 Dose: 10 mg Darbepoetin Miqu[place] (Aranesp -) 40 mcg SQ Q7D@1000 [facility] Last Admin: 09/23/16 16:33 Dose: 40 mcg Diltiazem HCl (Cardizem Cd -) 120 mg PO DAILY [facility] Last Admin: 09/24/16 10:16 Dose: 120 mg Ferrous Sulfate (Feosol -) 325 mg PO TID [facility] Last Admin: 09/25/16 06:09 Dose: 325 mg Lactic Acid (Lac-Hydrin 12% Cream -) 1 applic TP BID [facility] Last Admin: 09/24/16 22:12 Dose: Not Given Losartan Potassium (Cozaar -) 100 mg PO DAILY [facility] Last Admin: 09/24/16 10:16 Dose: 100 mg Methylprednisolone Sodium Succinate (Solu-Medrol -) 60 mg IVPB Q8H-IV [facility] Last Admin: 09/25/16 02:32 Dose: 60 mg Montelukast Sodium (Singulair -) 10 mg PO HS [facility] Last Admin: 09/24/16 22:08 Dose: 10 mg Nicotine (Nicoderm Patch -) 21 mg TD DAILY [facility] Last Admin: 09/24/16 10:20 Dose: 21 mg Nystatin (Nystatin Oral Suspension -) 500,000 units PO Q6HPO [facility] Last Admin: 09/25/16 06:09 Dose: 500,000 units Pantoprazole Sodium (Protonix -) 20 mg PO DAILY [facility] Last Admin: 09/24/16 10:16 Dose: 20 mg Pregabalin (Lyrica -) 75 mg PO TID [facility] Last Admin: 09/25/16 06:09 Dose: 75 mg Quetiapine Fumarate (Seroquel -) 50 mg PO BID [facility] Last Admin: 09/24/16 22:09 Dose: 50 mg Sertraline HCl (Zoloft -) 100 mg PO DAILY [facility] Last Admin: 09/24/16 10:16 Dose: 100 mg Zolpidem Tartrate (Ambien -) 5 mg PO HS PRN - Objective Vital Signs: Vital Signs Temperature 97.4 F L 09/25/16 06:00 Pulse Rate 83 09/25/16 06:00 Respiratory Rate 18 09/25/16 06:00 Blood Pressure 148/83 09/25/16 06:00 O2 Sat by Pulse Oximetry (%) 93 L 09/24/16 22:00 Constitutional: Yes: Anxious, Mild Distress Eyes: Yes: WNL HENT: Yes: Normocephalic Neck: Yes: Supple, Trachea Midline Cardiovascular: Yes: S1, S2. No: Murmur, Rub Respiratory: Yes: Diminished, Poor Air Entry, Rhonchi Gastrointestinal: Yes: Normal Bowel Sounds, Abdomen, Obese Edema: No Integumentary: Yes: WNL Neurological: Yes: Alert, Oriented Psychiatric: Yes: Alert, Oriented Labs: CBC, BMP 09/25/16 07:00 09/25/16 07:00 Problem List - Problems (1) Anemia Code(s): D64.9 - ANEMIA, UNSPECIFIED Qualifiers: Anemia type: unspecified type Qualified Code(s): D64.9 - Anemia, unspecified (2) CKD (chronic kidney disease) Code(s): N18.9 - CHRONIC KIDNEY DISEASE, UNSPECIFIED Qualifiers: Chronic kidney disease stage: unspecified stage Qualified Code(s): N18.9 - Chronic kidney disease, unspecified (3) COPD (chronic obstructive pulmonary disease) Code(s): J44.9 - CHRONIC OBSTRUCTIVE PULMONARY DISEASE, UNSPECIFIED Qualifiers : COPD type: COPD with acute exacerbation Qualified Code(s): J44.1 - Chronic obstructive pulmonary disease with (acute) exacerbation (4) Decompensated COPD with exacerbation (chronic obstructive pulmonary disease) Code(s): J44.1 - CHRONIC OBSTRUCTIVE PULMONARY DISEASE W (ACUTE) EXACERBATION (5) Acute renal failure Code(s): N17.9 - ACUTE KIDNEY FAILURE, UNSPECIFIED (6) Asthma Code(s): J45.909 - UNSPECIFIED ASTHMA, UNCOMPLICATED Assessment/Plan 65 y/o female with Advanced COPD, admitted with exacerbation of COPD. On IV Medrol. Chronic Kidney Disease, Stage III. Stable Azotemia. Electrolytes in acceptable range. Anemia stable. Maintains good urine out put. Will monitor the Renal functions with you. Monica Manzanares MD
[2016-09-25] MEDS: AMMONIUM LACTATE 12% CREAM 140 GM TUBE TP SCH ×2 (11:52→21:53)
--- NOTE | 2016-09-25 12:05 | PN ---
Progress Note, Physician Chief Complaint: Ms Castellano says she is doing really well. Her shortness of breath has resolved. No cp or n/v. - Current Medication List Current Medications: Active Medications Acetaminophen (Tylenol -) 650 mg PO Q6H PRN PRN Reason: FEVER OR PAIN Last Admin: 09/24/16 06:19 Dose: 650 mg Aclidinium [place] (Tudorza -) 1 puff IH BID [facility] Last Admin: 09/25/16 10:57 Dose: 1 puff Albuterol Sulfate (Ventolin 0.083% Nebulizer Soln -) 1 amp NEB Q4H PRN PRN Reason: SHORT OF BREATH/WHEEZING Albuterol Sulfate (Ventolin 0.083% Nebulizer Soln -) 1 amp NEB QIDR [facility] Last Admin: 09/25/16 11:14 Dose: 1 amp Aspirin (Asa -) 81 mg PO DAILY [facility] Last Admin: 09/25/16 10:00 Dose: 81 mg Atorvastatin Calcium (Lipitor -) 40 mg PO HS [facility] Last Admin: 09/24/16 22:09 Dose: 40 mg Azithromycin (Zithromax -) 250 mg PO DAILY [facility] Last Admin: 09/25/16 10:57 Dose: 250 mg Benzocaine/Menthol (Cepacol Lozenge -) 1 each MM PRN PRN PRN Reason: SORE THROAT Last Admin: 09/24/16 10:21 Dose: 1 each Budesonide/Formoterol Fumarate (Symbicort 160/4.5mcg -) 2 puff IH BID [facility] Last Admin: 09/25/16 10:57 Dose: 2 puff Bupropion HCl (Wellbutrin Xl -) 300 mg PO DAILY [facility] Last Admin: 09/25/16 10:57 Dose: 300 mg Calcium Carbonate/Cholecalciferol (Os-Clarence 500+D -) 1 tab PO BID [facility] Last Admin: 09/25/16 10:53 Dose: 1 tab Clopidogrel Bisulfate (Plavix -) 75 mg PO DAILY [facility] Last Admin: 09/25/16 10:54 Dose: 75 mg Cyclobenzaprine HCl (Flexeril -) 10 mg PO HS [facility] Last Admin: 09/24/16 22:09 Dose: 10 mg Darbepoetin Miquel (Aranesp -) 40 mcg SQ Q7D@1000 [facility] Last Admin: 09/23/16 16:33 Dose: 40 mcg Diltiazem HCl (Cardizem Cd -) 120 mg PO DAILY [facility] Last Admin: 09/25/16 10:48 Dose: 120 mg Ferrous Sulfate (Feosol -) 325 mg PO TID [facility] Last Admin: 09/25/16 06:09 Dose: 325 mg Lactic Acid (Lac-Hydrin 12% Cream -) 1 applic TP BID [facility] Last Admin: 09/25/16 11:52 Dose: 1 applic Losartan Potassium (Cozaar -) 100 mg PO DAILY [facility] Last Admin: 09/25/16 10:51 Dose: 100 mg Methylprednisolone Sodium Succinate (Solu-Medrol -) 60 mg IVPB Q8H-IV [facility] Last Admin: 09/25/16 10:57 Dose: 60 mg Montelukast Sodium (Singulair -) 10 mg PO HS [facility] Last Admin: 09/24/16 22:08 Dose: 10 mg Nicotine (Nicoderm Patch -) 21 mg TD DAILY [facility] Last Admin: 09/25/16 10:53 Dose: 21 mg Nystatin (Nystatin Oral Suspension -) 500,000 units PO Q6HPO [facility] Last Admin: 09/25/16 11:45 Dose: 500,000 units Pantoprazole Sodium (Protonix -) 20 mg PO DAILY [facility] Last Admin: 09/25/16 10:45 Dose: 20 mg Pregabalin (Lyrica -) 75 mg PO TID [facility] Last Admin: 09/25/16 06:09 Dose: 75 mg Quetiapine Fumarate (Seroquel -) 50 mg PO BID [facility] Last Admin: 09/25/16 10:56 Dose: 50 mg Sertraline HCl (Zoloft -) 100 mg PO DAILY [facility] Last Admin: 09/25/16 10:57 Dose: 100 mg Zolpidem Tartrate (Ambien -) 5 mg PO HS PRN - Objective Vital Signs: Vital Signs Temperature 97.4 F L 09/25/16 06:00 Pulse Rate 92 H 09/25/16 11:14 Respiratory Rate 18 09/25/16 06:00 Blood Pressure 148/83 09/25/16 06:00 O2 Sat by Pulse Oximetry (%) 98 09/25/16 11:14 Constitutional: Yes: No Distress, Calm, Obese Cardiovascular: Yes: Regular Rate and Rhythm. No: Gallop, Murmur, Rub Respiratory: Yes: Regular, CTA Bilaterally. No: Rales, Rhonchi, Wheezes Gastrointestinal: Yes: Normal Bowel Sounds, Soft. No: Distention, Tenderness Extremities: Yes: WNL Edema: No Labs: CBC, BMP 09/25/16 07:00 09/25/16 07:00 Assessment/Plan (1) COPD (chronic obstructive pulmonary disease) Assessment/Plan: -much improved today -pulmonary following, ? if can decrease solumedrol -continue bronchodilators -possible discharge in next 24-48 hours if at baseline and changed to oral prednisone -evaluate for need for home oxygen Code(s): J44.9 - CHRONIC OBSTRUCTIVE PULMONARY DISEASE, UNSPECIFIED Qualifiers : COPD type: COPD with acute exacerbation Qualified Code(s): J44.1 - Chronic obstructive pulmonary disease with (acute) exacerbation (2) Symptomatic anemia Assessment/Plan: -transfused 1 unit -s/p epogen -stable Code(s): D64.9 - ANEMIA, UNSPECIFIED (3) CKD (chronic kidney disease) Assessment/Plan: -stable -renal following Code(s): N18.9 - CHRONIC KIDNEY DISEASE, UNSPECIFIED Qualifiers: Chronic kidney disease stage: unspecified stage Qualified Code(s): N18.9 - Chronic kidney disease, unspecified (4) Hyperlipidemia Assessment/Plan: -continue statin Code(s): E78.5 - HYPERLIPIDEMIA, UNSPECIFIED (5) Hypertension Assessment/Plan: -well controlled -continue current regimen Code(s): I10 - ESSENTIAL (PRIMARY) HYPERTENSION (6) Anxiety Assessment/Plan: -continue zoloft, wellbutrin, seroquel, flexeril Code(s): F41.9 - ANXIETY DISORDER, UNSPECIFIED
--- NOTE | 2016-09-25 12:38 | PN ---
Progress Note, Physician History of Present Illness: pulmonary alert,feeling better,less dyspneic - Current Medication List Current Medications: Active Medications Acetaminophen (Tylenol -) 650 mg PO Q6H PRN PRN Reason: FEVER OR PAIN Last Admin: 09/24/16 06:19 Dose: 650 mg Aclidinium [place] (Tudorza -) 1 puff IH BID [facility] Last Admin: 09/25/16 10:57 Dose: 1 puff Albuterol Sulfate (Ventolin 0.083% Nebulizer Soln -) 1 amp NEB Q4H PRN PRN Reason: SHORT OF BREATH/WHEEZING Albuterol Sulfate (Ventolin 0.083% Nebulizer Soln -) 1 amp NEB QIDR [facility] Last Admin: 09/25/16 11:14 Dose: 1 amp Aspirin (Asa -) 81 mg PO DAILY [facility] Last Admin: 09/25/16 10:00 Dose: 81 mg Atorvastatin Calcium (Lipitor -) 40 mg PO HS [facility] Last Admin: 09/24/16 22:09 Dose: 40 mg Azithromycin (Zithromax -) 250 mg PO DAILY [facility] Last Admin: 09/25/16 10:57 Dose: 250 mg Benzocaine/Menthol (Cepacol Lozenge -) 1 each MM PRN PRN PRN Reason: SORE THROAT Last Admin: 09/24/16 10:21 Dose: 1 each Budesonide/Formoterol Fumarate (Symbicort 160/4.5mcg -) 2 puff IH BID [facility] Last Admin: 09/25/16 10:57 Dose: 2 puff Bupropion HCl (Wellbutrin Xl -) 300 mg PO DAILY [facility] Last Admin: 09/25/16 10:57 Dose: 300 mg Calcium Carbonate/Cholecalciferol (Os-Clarence 500+D -) 1 tab PO BID [facility] Last Admin: 09/25/16 10:53 Dose: 1 tab Clopidogrel Bisulfate (Plavix -) 75 mg PO DAILY [facility] Last Admin: 09/25/16 10:54 Dose: 75 mg Cyclobenzaprine HCl (Flexeril -) 10 mg PO HS [facility] Last Admin: 09/24/16 22:09 Dose: 10 mg Darbepoetin Miquel (Aranesp -) 40 mcg SQ Q7D@1000 [facility] Last Admin: 09/23/16 16:33 Dose: 40 mcg Diltiazem HCl (Cardizem Cd -) 120 mg PO DAILY [facility] Last Admin: 09/25/16 10:48 Dose: 120 mg Ferrous Sulfate (Feosol -) 325 mg PO TID [facility] Last Admin: 09/25/16 06:09 Dose: 325 mg Lactic Acid (Lac-Hydrin 12% Cream -) 1 applic TP BID [facility] Last Admin: 09/25/16 11:52 Dose: 1 applic Losartan Potassium (Cozaar -) 100 mg PO DAILY [facility] Last Admin: 09/25/16 10:51 Dose: 100 mg Methylprednisolone Sodium Succinate (Solu-Medrol -) 60 mg IVPB Q8H-IV [facility] Last Admin: 09/25/16 10:57 Dose: 60 mg Montelukast Sodium (Singulair -) 10 mg PO HS [facility] Last Admin: 09/24/16 22:08 Dose: 10 mg Nicotine (Nicoderm Patch -) 21 mg TD DAILY [facility] Last Admin: 09/25/16 10:53 Dose: 21 mg Nystatin (Nystatin Oral Suspension -) 500,000 units PO Q6HPO [facility] Last Admin: 09/25/16 11:45 Dose: 500,000 units Pantoprazole Sodium (Protonix -) 20 mg PO DAILY [facility] Last Admin: 09/25/16 10:45 Dose: 20 mg Pregabalin (Lyrica -) 75 mg PO TID [facility] Last Admin: 09/25/16 06:09 Dose: 75 mg Quetiapine Fumarate (Seroquel -) 50 mg PO BID [facility] Last Admin: 09/25/16 10:56 Dose: 50 mg Sertraline HCl (Zoloft -) 100 mg PO DAILY [facility] Last Admin: 09/25/16 10:57 Dose: 100 mg Zolpidem Tartrate (Ambien -) 5 mg PO HS PRN - Objective Vital Signs: Vital Signs Temperature 97.4 F L 09/25/16 06:00 Pulse Rate 92 H 09/25/16 11:14 Respiratory Rate 18 09/25/16 06:00 Blood Pressure 148/83 09/25/16 06:00 O2 Sat by Pulse Oximetry (%) 98 09/25/16 11:14 Constitutional: Yes: Well Nourished, Calm Eyes: Yes: WNL HENT: Yes: WNL Neck: Yes: WNL Cardiovascular: Yes: Regular Rate and Rhythm, S1, S2 Respiratory: Yes: Wheezes (less wheezes aurelia) Gastrointestinal: Yes: Normal Bowel Sounds, Soft Extremities: Yes: WNL Edema: No Labs: CBC, BMP 09/25/16 07:00 09/25/16 07:00 Problem List - Problems (1) Anemia Code(s): D64.9 - ANEMIA, UNSPECIFIED Qualifiers: Anemia type: unspecified type Qualified Code(s): D64.9 - Anemia, unspecified (2) Anxiety Code(s): F41.9 - ANXIETY DISORDER, UNSPECIFIED (3) CKD (chronic kidney disease) Code(s): N18.9 - CHRONIC KIDNEY DISEASE, UNSPECIFIED Qualifiers: Chronic kidney disease stage: unspecified stage Qualified Code(s): N18.9 - Chronic kidney disease, unspecified (4) Dyspnea on exertion Code(s): R06.09 - OTHER FORMS OF DYSPNEA (5) Chest pain Code(s): R07.9 - CHEST PAIN, UNSPECIFIED (6) Hyperlipidemia Code(s): E78.5 - HYPERLIPIDEMIA, UNSPECIFIED (7) Hypertension Code(s): I10 - ESSENTIAL (PRIMARY) HYPERTENSION (8) Smokes cigarettes Code(s): F17.210 - NICOTINE DEPENDENCE, CIGARETTES, UNCOMPLICATED (9) Symptomatic anemia Code(s): D64.9 - ANEMIA, UNSPECIFIED (10) COPD (chronic obstructive pulmonary disease) Code(s): J44.9 - CHRONIC OBSTRUCTIVE PULMONARY DISEASE, UNSPECIFIED Qualifiers : COPD type: COPD with acute exacerbation Qualified Code(s): J44.1 - Chronic obstructive pulmonary disease with (acute) exacerbation (11) Decompensated COPD with exacerbation (chronic obstructive pulmonary disease ) Code(s): J44.1 - CHRONIC OBSTRUCTIVE PULMONARY DISEASE W (ACUTE) EXACERBATION Assessment/Plan IMP COPD EXACERBATION IMPROVING ANEMIA CHEST PAIN CKD STAGE 3 HTN SMOKER PLAN STEROID TAPER INHALED BRONCHODILATORS NASAL O2 SMOKING CESSATION DISCUSSED DR MARIE Problem List - Problems (1) Anemia Code(s): D64.9 - ANEMIA, UNSPECIFIED Qualifiers: Anemia type: unspecified type Qualified Code(s): D64.9 - Anemia, unspecified (2) Anxiety Code(s): F41.9 - ANXIETY DISORDER, UNSPECIFIED (3) CKD (chronic kidney disease) Code(s): N18.9 - CHRONIC KIDNEY DISEASE, UNSPECIFIED Qualifiers: Chronic kidney disease stage: unspecified stage Qualified Code(s): N18.9 - Chronic kidney disease, unspecified (4) Dyspnea on exertion Code(s): R06.09 - OTHER FORMS OF DYSPNEA (5) Chest pain Code(s): R07.9 - CHEST PAIN, UNSPECIFIED (6) Hyperlipidemia Code(s): E78.5 - HYPERLIPIDEMIA, UNSPECIFIED (7) Hypertension Code(s): I10 - ESSENTIAL (PRIMARY) HYPERTENSION (8) Smokes cigarettes Code(s): F17.210 - NICOTINE DEPENDENCE, CIGARETTES, UNCOMPLICATED (9) Symptomatic anemia Code(s): D64.9 - ANEMIA, UNSPECIFIED (10) COPD (chronic obstructive pulmonary disease) Code(s): J44.9 - CHRONIC OBSTRUCTIVE PULMONARY DISEASE, UNSPECIFIED Qualifiers : COPD type: COPD with acute exacerbation Qualified Code(s): J44.1 - Chronic obstructive pulmonary disease with (acute) exacerbation (11) Decompensated COPD with exacerbation (chronic obstructive pulmonary disease ) Code(s): J44.1 - CHRONIC OBSTRUCTIVE PULMONARY DISEASE W (ACUTE) EXACERBATION
[2016-09-25] MEDS: ACETAMINOPHEN 325 MG TABLET (FP) PO PRN (17:28)
[2016-09-25] MEDS: ATORVASTATIN CA 40 MG TABLET (FP) PO SCH (21:36)
[2016-09-25] MEDS: CYCLOBENZAPRINE HCL 10 MG TABLET (FP) PO SCH (21:36)
[2016-09-25] MEDS: MONTELUKAST NA 10 MG TABLET PO SCH (21:37)
[2016-09-26] MEDS: methylPREDNISolone NA SUCC 125 MG/2 ML VIAL IVPB SCH ×3 (01:25→22:05)
[2016-09-26] MEDS: NYSTATIN 500,000 UNITS/5 ML SUSPENSION PO SCH ×4 (01:58→17:17)
[2016-09-26] MEDS: ALBUTEROL SO4 0.083% IH SOL 2.5 MG/3 ML VIAL.NEB. NEB SCH ×4 (06:40→23:21)
[2016-09-26] MEDS: FERROUS SO4 325 MG TABLET (FP) PO SCH ×3 (06:59→22:20)
[2016-09-26] MEDS: PREGABALIN 75 MG CAPSULE PO SCH ×3 (06:59→22:04)
[2016-09-26 07:21] LABS: MCH 28.9 pg (25.7-33.7); MCHC 32.5 g/dl (32.0-36.0); MEAN PLT VOLUME 8.3 fl (7.5-11.1); PLATELET COUNT 253 K/MM3 (134-434); RDW 15.3 % (11.6-15.6)
[2016-09-26 07:43] LABS: CALCIUM 9.6 mg/dL (8.5-10.1); CREATININE 1.4 mg/dL (0.55-1.02); MAGNESIUM 2.4 mg/dL (1.8-2.4); PHOSPHOROUS 3.5 mg/dL (2.5-4.9)
[2016-09-26] MEDS: ACETAMINOPHEN 325 MG TABLET (FP) PO PRN (08:16)
[2016-09-26] MEDS ORDERED: PT OWN MED DRAWER 7, Y5N ONE ×3 (09:52→23:03)
[2016-09-26] MEDS: SERTRALINE HCL 50 MG TABLET (FP) PO SCH (09:56)
[2016-09-26] MEDS: ASPIRIN 81 MG CHEWABLE TABLETS PO SCH (09:56)
[2016-09-26] MEDS: BUDESONIDE/FORMETEROL FUMARATE 160/4.5 mcg INHALER IH SCH ×2 (09:57→22:07)
[2016-09-26] MEDS: AZITHROMYCIN 250 MG TABLET (FP) PO SCH (09:57)
[2016-09-26] MEDS: ACLIDINIUM BROMIDE 400 MCG/INH AERO.POWD IH SCH ×2 (09:58→22:06)
[2016-09-26] MEDS: NICOTINE 21 MG/24 HOURS TOPICAL PATCH TD SCH (09:59)
[2016-09-26] MEDS: CALCIUM 500MG/VIT-D 200 UNITS COMBO TABLET (FP) PO SCH ×2 (09:59→22:04)
[2016-09-26] MEDS: CLOPIDOGREL BISULFATE 75 MG TABLET (FP) PO SCH (09:59)
[2016-09-26] MEDS: PANTOPRAZOLE 20 MG TABLET (FP) PO SCH (09:59)
[2016-09-26] MEDS: LOSARTAN POTASSIUM 50 MG TABLET (FP) PO SCH (10:00)
[2016-09-26] MEDS: QUEtiapine FUMARATE 50 MG TABLET PO SCH ×2 (10:01→22:05)
[2016-09-26] MEDS: AMMONIUM LACTATE 12% CREAM 140 GM TUBE TP SCH ×2 (10:06→22:06)
[2016-09-26] MEDS: BENZOCAINE/MENTH/CETYLPYRD CL 1 EACH LOZENGE MM PRN ×2 (10:07→23:05)
[2016-09-26 10:09] LABS: METAMYELOCYTE 1 % (0-2)
[2016-09-26 10:10] LABS: PLATELET ESTIMATE ADEQUATE (NORMAL)
--- NOTE | 2016-09-26 11:47 | PN ---
Progress Note, Physician Chief Complaint: Ms Castellano complains of back pain today, says it is positional and made worse with certain movements. States her breathing is much improved today, close to baseline. No cp or n/v. - Current Medication List Current Medications: Active Medications Acetaminophen (Tylenol -) 650 mg PO Q6H PRN PRN Reason: FEVER OR PAIN Last Admin: 09/26/16 08:16 Dose: 650 mg Aclidinium [place] (Tudorza -) 1 puff IH BID [facility] Last Admin: 09/26/16 09:58 Dose: 1 puff Albuterol Sulfate (Ventolin 0.083% Nebulizer Soln -) 1 amp NEB Q4H PRN PRN Reason: SHORT OF BREATH/WHEEZING Albuterol Sulfate (Ventolin 0.083% Nebulizer Soln -) 1 amp NEB QIDR [facility] Last Admin: 09/26/16 11:16 Dose: 1 amp Aspirin (Asa -) 81 mg PO DAILY [facility] Last Admin: 09/26/16 09:56 Dose: 81 mg Atorvastatin Calcium (Lipitor -) 40 mg PO HS [facility] Last Admin: 09/25/16 21:36 Dose: 40 mg Azithromycin (Zithromax -) 250 mg PO DAILY [facility] Last Admin: 09/26/16 09:57 Dose: 250 mg Benzocaine/Menthol (Cepacol Lozenge -) 1 each MM PRN PRN PRN Reason: SORE THROAT Last Admin: 09/26/16 10:07 Dose: 1 each Budesonide/Formoterol Fumarate (Symbicort 160/4.5mcg -) 2 puff IH BID [facility] Last Admin: 09/26/16 09:57 Dose: 2 puff Bupropion HCl (Wellbutrin Xl -) 300 mg PO DAILY [facility] Last Admin: 09/26/16 10:02 Dose: 300 mg Calcium Carbonate/Cholecalciferol (Os-Clarence 500+D -) 1 tab PO BID [facility] Last Admin: 09/26/16 09:59 Dose: 1 tab Clopidogrel Bisulfate (Plavix -) 75 mg PO DAILY [facility] Last Admin: 09/26/16 09:59 Dose: 75 mg Cyclobenzaprine HCl (Flexeril -) 10 mg PO HS [facility] Last Admin: 09/25/16 21:36 Dose: 10 mg Darbepoetin [place] (Aranesp -) 40 mcg SQ Q7D@1000 [facility] Last Admin: 09/23/16 16:33 Dose: 40 mcg Diltiazem HCl (Cardizem Cd -) 120 mg PO DAILY [facility] Last Admin: 09/26/16 10:01 Dose: 120 mg Ferrous Sulfate (Feosol -) 325 mg PO TID [facility] Last Admin: 09/26/16 06:59 Dose: 325 mg Lactic Acid (Lac-Hydrin 12% Cream -) 1 applic TP BID [facility] Last Admin: 09/26/16 10:06 Dose: 1 applic Losartan Potassium (Cozaar -) 100 mg PO DAILY [facility] Last Admin: 09/26/16 10:00 Dose: 100 mg Methylprednisolone Sodium Succinate (Solu-Medrol -) 40 mg IVPB Q8H-IV [facility] Last Admin: 09/26/16 10:01 Dose: 40 mg Montelukast Sodium (Singulair -) 10 mg PO HS [facility] Last Admin: 09/25/16 21:37 Dose: 10 mg Nicotine (Nicoderm Patch -) 21 mg TD DAILY [facility] Last Admin: 09/26/16 09:59 Dose: 21 mg Nystatin (Nystatin Oral Suspension -) 500,000 units PO Q6HPO [facility] Last Admin: 09/26/16 06:59 Dose: 500,000 units Pregabalin (Lyrica -) 75 mg PO TID [facility] Last Admin: 09/26/16 06:59 Dose: 75 mg Quetiapine Fumarate (Seroquel -) 50 mg PO BID [facility] Last Admin: 09/26/16 10:01 Dose: 50 mg Sertraline HCl (Zoloft -) 100 mg PO DAILY [facility] Last Admin: 09/26/16 09:56 Dose: 100 mg Zolpidem Tartrate (Ambien -) 5 mg PO HS PRN - Objective Vital Signs: Vital Signs Temperature 98.4 F 09/26/16 06:00 Pulse Rate 87 09/26/16 11:15 Respiratory Rate 20 09/26/16 06:00 Blood Pressure 143/75 09/26/16 06:00 O2 Sat by Pulse Oximetry (%) 97 09/26/16 11:15 Constitutional: Yes: No Distress, Calm, Obese Cardiovascular: Yes: Regular Rate and Rhythm. No: Gallop, Murmur, Rub Respiratory: Yes: Regular, CTA Bilaterally, On Nasal O2, Other (good air movement). No: Rales, Rhonchi, Wheezes Gastrointestinal: Yes: Normal Bowel Sounds, Soft. No: Distention, Tenderness Extremities: Yes: WNL Edema: No Labs: CBC, BMP 09/26/16 06:45 09/26/16 06:45 Assessment/Plan (1) COPD (chronic obstructive pulmonary disease) Assessment/Plan: -continues to improve, but still requiring oxygen -pulmonary following and tapering solumedrol -continue bronchodilators -possible discharge in next 24-48 hours if at baseline and changed to oral prednisone -evaluate for need for home oxygen Code(s): J44.9 - CHRONIC OBSTRUCTIVE PULMONARY DISEASE, UNSPECIFIED Qualifiers : COPD type: COPD with acute exacerbation Qualified Code(s): J44.1 - Chronic obstructive pulmonary disease with (acute) exacerbation (2) Symptomatic anemia Assessment/Plan: -transfused 1 unit -s/p epogen -stable Code(s): D64.9 - ANEMIA, UNSPECIFIED (3) CKD (chronic kidney disease) Assessment/Plan: -stable -has elevated BUN, suspect this is secondary to high steroids -will increase protonix to 40mg while on solumedrol -follow Code(s): N18.9 - CHRONIC KIDNEY DISEASE, UNSPECIFIED Qualifiers: Chronic kidney disease stage: unspecified stage Qualified Code(s): N18.9 - Chronic kidney disease, unspecified (4) Hyperlipidemia Assessment/Plan: -continue statin Code(s): E78.5 - HYPERLIPIDEMIA, UNSPECIFIED (5) Hypertension Assessment/Plan: -well controlled -continue current regimen Code(s): I10 - ESSENTIAL (PRIMARY) HYPERTENSION (6) Anxiety Assessment/Plan: -continue zoloft, wellbutrin, seroquel, flexeril Code(s): F41.9 - ANXIETY DISORDER, UNSPECIFIED
--- NOTE | 2016-09-26 12:35 | PN ---
Progress Note, Physician History of Present Illness: pulmonary alert,oob-chair less congested,+back pain - Current Medication List Current Medications: Active Medications Acetaminophen (Tylenol -) 650 mg PO Q6H PRN PRN Reason: FEVER OR PAIN Last Admin: 09/26/16 08:16 Dose: 650 mg Aclidinium [place] (Tudorza -) 1 puff IH BID [facility] [place] Last Admin: 09/26/16 09:58 Dose: 1 puff Albuterol Sulfate (Ventolin 0.083% Nebulizer Soln -) 1 amp NEB Q4H PRN PRN Reason: SHORT OF BREATH/WHEEZING Albuterol Sulfate (Ventolin 0.083% Nebulizer Soln -) 1 amp NEB QIDR [facility] [place] Last Admin: 09/26/16 11:16 Dose: 1 amp Aspirin (Asa -) 81 mg PO DAILY [facility] [place] Last Admin: 09/26/16 09:56 Dose: 81 mg Atorvastatin Calcium (Lipitor -) 40 mg PO [facility] Last Admin: 09/25/16 21:36 Dose: 40 mg Azithromycin (Zithromax -) 250 mg PO DAILY [facility] [place] Last Admin: 09/26/16 09:57 Dose: 250 mg Benzocaine/Menthol (Cepacol Lozenge -) 1 each MM PRN PRN PRN Reason: SORE THROAT Last Admin: 09/26/16 10:07 Dose: 1 each Budesonide/Formoterol Fumarate (Symbicort 160/4.5mcg -) 2 puff IH BID [facility] [place] Last Admin: 09/26/16 09:57 Dose: 2 puff Bupropion HCl (Wellbutrin Xl -) 300 mg PO DAILY [facility] [place] Last Admin: 09/26/16 10:02 Dose: 300 mg Calcium Carbonate/Cholecalciferol (Os-Clarence 500+D -) 1 tab PO BID [facility] [place] Last Admin: 09/26/16 09:59 Dose: 1 tab Clopidogrel Bisulfate (Plavix -) 75 mg PO DAILY [facility] [place] Last Admin: 09/26/16 09:59 Dose: 75 mg Cyclobenzaprine HCl (Flexeril -) 10 mg PO HS [facility] [place] Last Admin: 09/25/16 21:36 Dose: 10 mg Darbepoetin Miquel (Aranesp -) 40 mcg SQ Q7D@1000 [facility] [place] Last Admin: 09/23/16 16:33 Dose: 40 mcg Diltiazem HCl (Cardizem Cd -) 120 mg PO DAILY [facility] [place] Last Admin: 09/26/16 10:01 Dose: 120 mg Ferrous Sulfate (Feosol -) 325 mg PO TID [facility] [place] Last Admin: 09/26/16 06:59 Dose: 325 mg Lactic Acid (Lac-Hydrin 12% Cream -) 1 applic TP BID [facility] [place] Last Admin: 09/26/16 10:06 Dose: 1 applic Losartan Potassium (Cozaar -) 100 mg PO DAILY [facility] [place] Last Admin: 09/26/16 10:00 Dose: 100 mg Methylprednisolone Sodium Succinate (Solu-Medrol -) 40 mg IVPB Q8H-IV [facility] [place] Last Admin: 09/26/16 10:01 Dose: 40 mg Montelukast Sodium (Singulair -) 10 mg PO HS [facility] [place] Last Admin: 09/25/16 21:37 Dose: 10 mg Nicotine (Nicoderm Patch -) 21 mg TD DAILY [facility] [place] Last Admin: 09/26/16 09:59 Dose: 21 mg Nystatin (Nystatin Oral Suspension -) 500,000 units PO Q6HPO [facility] [place] Last Admin: 09/26/16 12:14 Dose: 500,000 units Pantoprazole Sodium (Protonix -) 40 mg PO DAILY [facility] [place] Pregabalin (Lyrica -) 75 mg PO TID [facility] [place] Last Admin: 09/26/16 06:59 Dose: 75 mg Quetiapine Fumarate (Seroquel -) 50 mg PO BID [facility] [place] Last Admin: 09/26/16 10:01 Dose: 50 mg Sertraline HCl (Zoloft -) 100 mg PO DAILY [facility] [place] Last Admin: 09/26/16 09:56 Dose: 100 mg Zolpidem Tartrate (Ambien -) 5 mg PO HS PRN - Objective Vital Signs: Vital Signs Temperature 98.4 F 09/26/16 06:00 Pulse Rate 87 09/26/16 11:15 Respiratory Rate 20 09/26/16 06:00 Blood Pressure 143/75 09/26/16 06:00 O2 Sat by Pulse Oximetry (%) 97 09/26/16 11:15 Constitutional: Yes: Well Nourished, Calm Eyes: Yes: WNL HENT: Yes: WNL Neck: Yes: Supple Cardiovascular: Yes: Regular Rate and Rhythm, S1, S2 Respiratory: Yes: Diminished Gastrointestinal: Yes: Normal Bowel Sounds, Soft Extremities: Yes: WNL Edema: No Labs: CBC, BMP 09/26/16 06:45 09/26/16 06:45 Problem List - Problems (1) Anemia Code(s): D64.9 - ANEMIA, UNSPECIFIED Qualifiers: Anemia type: unspecified type Qualified Code(s): D64.9 - Anemia, unspecified (2) Anxiety Code(s): F41.9 - ANXIETY DISORDER, UNSPECIFIED (3) CKD (chronic kidney disease) Code(s): N18.9 - CHRONIC KIDNEY DISEASE, UNSPECIFIED Qualifiers: Chronic kidney disease stage: unspecified stage Qualified Code(s): N18.9 - Chronic kidney disease, unspecified (4) Dyspnea on exertion Code(s): R06.09 - OTHER FORMS OF DYSPNEA (5) Chest pain Code(s): R07.9 - CHEST PAIN, UNSPECIFIED (6) Hyperlipidemia Code(s): E78.5 - HYPERLIPIDEMIA, UNSPECIFIED (7) Hypertension Code(s): I10 - ESSENTIAL (PRIMARY) HYPERTENSION (8) Smokes cigarettes Code(s): F17.210 - NICOTINE DEPENDENCE, CIGARETTES, UNCOMPLICATED (9) Symptomatic anemia Code(s): D64.9 - ANEMIA, UNSPECIFIED (10) COPD (chronic obstructive pulmonary disease) Code(s): J44.9 - CHRONIC OBSTRUCTIVE PULMONARY DISEASE, UNSPECIFIED Qualifiers : COPD type: COPD with acute exacerbation Qualified Code(s): J44.1 - Chronic obstructive pulmonary disease with (acute) exacerbation (11) Decompensated COPD with exacerbation (chronic obstructive pulmonary disease ) Code(s): J44.1 - CHRONIC OBSTRUCTIVE PULMONARY DISEASE W (ACUTE) EXACERBATION Assessment/Plan IMP COPD EXACERBATION IMPROVING ANEMIA CHEST PAIN CKD STAGE 3 HTN SMOKER PLAN CONT STEROID TAPER INHALED BRONCHODILATORS NASAL O2 SMOKING CESSATION DISCUSSED DR MARIE Problem List - Problems (1) Anemia Code(s): D64.9 - ANEMIA, UNSPECIFIED Qualifiers: Anemia type: unspecified type Qualified Code(s): D64.9 - Anemia, unspecified (2) Anxiety Code(s): F41.9 - ANXIETY DISORDER, UNSPECIFIED (3) CKD (chronic kidney disease) Code(s): N18.9 - CHRONIC KIDNEY DISEASE, UNSPECIFIED Qualifiers: Chronic kidney disease stage: unspecified stage Qualified Code(s): N18.9 - Chronic kidney disease, unspecified (4) Dyspnea on exertion Code(s): R06.09 - OTHER FORMS OF DYSPNEA (5) Chest pain Code(s): R07.9 - CHEST PAIN, UNSPECIFIED (6) Hyperlipidemia Code(s): E78.5 - HYPERLIPIDEMIA, UNSPECIFIED (7) Hypertension Code(s): I10 - ESSENTIAL (PRIMARY) HYPERTENSION (8) Smokes cigarettes Code(s): F17.210 - NICOTINE DEPENDENCE, CIGARETTES, UNCOMPLICATED (9) Symptomatic anemia Code(s): D64.9 - ANEMIA, UNSPECIFIED (10) COPD (chronic obstructive pulmonary disease) Code(s): J44.9 - CHRONIC OBSTRUCTIVE PULMONARY DISEASE, UNSPECIFIED Qualifiers : COPD type: COPD with acute exacerbation Qualified Code(s): J44.1 - Chronic obstructive pulmonary disease with (acute) exacerbation (11) Decompensated COPD with exacerbation (chronic obstructive pulmonary disease ) Code(s): J44.1 - CHRONIC OBSTRUCTIVE PULMONARY DISEASE W (ACUTE) EXACERBATION
[2016-09-26] MEDS: PANTOPRAZOLE 40 MG TABLET (FP) PO SCH (13:33)
--- NOTE | 2016-09-26 15:17 | PN ---
Progress Note, Physician Chief Complaint: Patient in bed. Respiratory status better. On IV Solumedrol Has some left lateral chest pain since moving abruptly. Good urine output. History of Present Illness: Patient is in bed. Has some shortness of breath. On IV solumedrol. Denies any chest pain. Good urine output maintained. No GI issues. - Current Medication List Current Medications: Active Medications Acetaminophen (Tylenol -) 650 mg PO Q6H PRN PRN Reason: FEVER OR PAIN Last Admin: 09/26/16 08:16 Dose: 650 mg Aclidinium [place] (Tudorza -) 1 puff IH BID [facility] Last Admin: 09/26/16 09:58 Dose: 1 puff Albuterol Sulfate (Ventolin 0.083% Nebulizer Soln -) 1 amp NEB Q4H PRN PRN Reason: SHORT OF BREATH/WHEEZING Albuterol Sulfate (Ventolin 0.083% Nebulizer Soln -) 1 amp NEB QIDR [facility] Last Admin: 09/26/16 11:16 Dose: 1 amp Aspirin (Asa -) 81 mg PO DAILY [facility] Last Admin: 09/26/16 09:56 Dose: 81 mg Atorvastatin Calcium (Lipitor -) 40 mg PO HS [facility] Last Admin: 09/25/16 21:36 Dose: 40 mg Azithromycin (Zithromax -) 250 mg PO DAILY [facility] Last Admin: 09/26/16 09:57 Dose: 250 mg Benzocaine/Menthol (Cepacol Lozenge -) 1 each MM PRN PRN PRN Reason: SORE THROAT Last Admin: 09/26/16 10:07 Dose: 1 each Budesonide/Formoterol Fumarate (Symbicort 160/4.5mcg -) 2 puff IH BID [facility] Last Admin: 09/26/16 09:57 Dose: 2 puff Bupropion HCl (Wellbutrin Xl -) 300 mg PO DAILY [facility] Last Admin: 09/26/16 10:02 Dose: 300 mg Calcium Carbonate/Cholecalciferol (Os-Clarence 500+D -) 1 tab PO BID [facility] Last Admin: 09/26/16 09:59 Dose: 1 tab Clopidogrel Bisulfate (Plavix -) 75 mg PO DAILY [facility] Last Admin: 09/26/16 09:59 Dose: 75 mg Cyclobenzaprine HCl (Flexeril -) 10 mg PO HS [facility] Last Admin: 09/25/16 21:36 Dose: 10 mg Darbepoetin Miqu[place] (Aranesp -) 40 mcg SQ Q7D@1000 [facility] Last Admin: 09/23/16 16:33 Dose: 40 mcg Diltiazem HCl (Cardizem Cd -) 120 mg PO DAILY [facility] Last Admin: 09/26/16 10:01 Dose: 120 mg Ferrous Sulfate (Feosol -) 325 mg PO TID [facility] Last Admin: 09/26/16 13:38 Dose: 325 mg Lactic Acid (Lac-Hydrin 12% Cream -) 1 applic TP BID [facility] Last Admin: 09/26/16 10:06 Dose: 1 applic Losartan Potassium (Cozaar -) 100 mg PO DAILY [facility] Last Admin: 09/26/16 10:00 Dose: 100 mg Methylprednisolone Sodium Succinate (Solu-Medrol -) 40 mg IVPB Q12H [facility] Montelukast Sodium (Singulair -) 10 mg PO HS [facility] Last Admin: 09/25/16 21:37 Dose: 10 mg Nicotine (Nicoderm Patch -) 21 mg TD DAILY [facility] Last Admin: 09/26/16 09:59 Dose: 21 mg Nystatin (Nystatin Oral Suspension -) 500,000 units PO Q6HPO [facility] Last Admin: 09/26/16 12:14 Dose: 500,000 units Pantoprazole Sodium (Protonix -) 40 mg PO DAILY [facility] Last Admin: 09/26/16 13:33 Dose: Not Given Pregabalin (Lyrica -) 75 mg PO TID [facility] Last Admin: 09/26/16 13:38 Dose: 75 mg Quetiapine Fumarate (Seroquel -) 50 mg PO BID [facility] Last Admin: 09/26/16 10:01 Dose: 50 mg Sertraline HCl (Zoloft -) 100 mg PO DAILY [facility] Last Admin: 09/26/16 09:56 Dose: 100 mg Zolpidem Tartrate (Ambien -) 5 mg PO HS PRN - Objective Vital Signs: Vital Signs Temperature 97.3 F L 09/26/16 12:00 Pulse Rate 76 09/26/16 12:00 Respiratory Rate 22 09/26/16 12:00 Blood Pressure 139/67 09/26/16 12:00 O2 Sat by Pulse Oximetry (%) 97 09/26/16 11:15 Labs: CBC, BMP 09/26/16 06:45 09/26/16 06:45 Problem List - Problems (1) Anemia Code(s): D64.9 - ANEMIA, UNSPECIFIED Qualifiers: Anemia type: unspecified type Qualified Code(s): D64.9 - Anemia, unspecified (2) CKD (chronic kidney disease) Code(s): N18.9 - CHRONIC KIDNEY DISEASE, UNSPECIFIED Qualifiers: Chronic kidney disease stage: unspecified stage Qualified Code(s): N18.9 - Chronic kidney disease, unspecified (3) COPD (chronic obstructive pulmonary disease) Code(s): J44.9 - CHRONIC OBSTRUCTIVE PULMONARY DISEASE, UNSPECIFIED Qualifiers : COPD type: COPD with acute exacerbation Qualified Code(s): J44.1 - Chronic obstructive pulmonary disease with (acute) exacerbation (4) Decompensated COPD with exacerbation (chronic obstructive pulmonary disease) Code(s): J44.1 - CHRONIC OBSTRUCTIVE PULMONARY DISEASE W (ACUTE) EXACERBATION (5) Acute renal failure Code(s): N17.9 - ACUTE KIDNEY FAILURE, UNSPECIFIED (6) Asthma Code(s): J45.909 - UNSPECIFIED ASTHMA, UNCOMPLICATED Assessment/Plan 65 y/o female with Advanced COPD, admitted with exacerbation of COPD. On IV Medrol. Chronic Kidney Disease, Stage III. Stable Azotemia. Electrolytes in acceptable range. Anemia stable. Maintains good urine out put. Will monitor the Renal functions with you. Monica Manzanares MD
[2016-09-26] MEDS ORDERED: ALBUTEROL SO4 0.083% IH SOL 2.5 MG/3 ML VIAL.NEB. NEB PRN (17:11)
[2016-09-26] MEDS ORDERED: CYCLOBENZAPRINE HCL 10 MG TABLET (FP) PO ONE (17:15)
[2016-09-26] MEDS: MONTELUKAST NA 10 MG TABLET PO SCH (22:04)
[2016-09-26] MEDS: CYCLOBENZAPRINE HCL 10 MG TABLET (FP) PO SCH (22:05)
[2016-09-26] MEDS: ATORVASTATIN CA 40 MG TABLET (FP) PO SCH (22:06)
[2016-09-27] MEDS: NYSTATIN 500,000 UNITS/5 ML SUSPENSION PO SCH ×4 (02:06→17:37)
[2016-09-27] MEDS: ALBUTEROL SO4 0.083% IH SOL 2.5 MG/3 ML VIAL.NEB. NEB SCH ×3 (06:35→17:10)
[2016-09-27] MEDS: PREGABALIN 75 MG CAPSULE PO SCH ×3 (06:59→21:27)
[2016-09-27] MEDS: FERROUS SO4 325 MG TABLET (FP) PO SCH ×3 (06:59→21:26)
[2016-09-27 07:09] LABS: BASOPHIL 0.3 % (0-2.0); EOSINOPHIL 0.1 % (0-4.5); MCHC 32.8 g/dl (32.0-36.0); MEAN CELL VOLUME 88.3 fl (80-96); MEAN PLT VOLUME 8.3 fl (7.5-11.1); NEUTROPHILS 90.6 % (42.8-82.8); PLATELET COUNT 244 K/MM3 (134-434); RDW 15.1 % (11.6-15.6)
[2016-09-27 07:34] LABS: CALCIUM 9.3 mg/dL (8.5-10.1); CREATININE 1.5 mg/dL (0.55-1.02); MAGNESIUM 2.4 mg/dL (1.8-2.4); PHOSPHOROUS 4.5 mg/dL (2.5-4.9)
[2016-09-27] MEDS ORDERED: PT OWN MED DRAWER 7, Y5N ONE ×4 (09:49→21:11)
[2016-09-27] MEDS: LOSARTAN POTASSIUM 50 MG TABLET (FP) PO SCH (09:52)
[2016-09-27] MEDS: PANTOPRAZOLE 40 MG TABLET (FP) PO SCH (09:52)
[2016-09-27] MEDS: CLOPIDOGREL BISULFATE 75 MG TABLET (FP) PO SCH (09:52)
[2016-09-27] MEDS: AZITHROMYCIN 250 MG TABLET (FP) PO SCH (09:52)
[2016-09-27] MEDS: QUEtiapine FUMARATE 50 MG TABLET PO SCH ×2 (09:52→21:27)
[2016-09-27] MEDS: CALCIUM 500MG/VIT-D 200 UNITS COMBO TABLET (FP) PO SCH ×2 (09:53→21:27)
[2016-09-27] MEDS: ASPIRIN 81 MG CHEWABLE TABLETS PO SCH (09:53)
[2016-09-27] MEDS: SERTRALINE HCL 50 MG TABLET (FP) PO SCH (09:53)
[2016-09-27] MEDS: BUDESONIDE/FORMETEROL FUMARATE 160/4.5 mcg INHALER IH SCH ×2 (09:54→21:31)
[2016-09-27] MEDS: NICOTINE 21 MG/24 HOURS TOPICAL PATCH TD SCH (09:54)
[2016-09-27] MEDS: AMMONIUM LACTATE 12% CREAM 140 GM TUBE TP SCH ×2 (09:54→21:26)
[2016-09-27] MEDS: ACLIDINIUM BROMIDE 400 MCG/INH AERO.POWD IH SCH ×2 (09:55→21:27)
[2016-09-27] MEDS: methylPREDNISolone NA SUCC 125 MG/2 ML VIAL IVPB SCH (09:55)
--- NOTE | 2016-09-27 11:21 | PN ---
Progress Note, Physician History of Present Illness: pulmonary alert,less dyspneic,+cp - Current Medication List Current Medications: Active Medications Acetaminophen (Tylenol -) 650 mg PO Q6H PRN PRN Reason: FEVER OR PAIN Last Admin: 09/26/16 08:16 Dose: 650 mg Aclidinium [place] (Tudorza -) 1 puff IH BID [facility] Last Admin: 09/27/16 09:55 Dose: 1 puff Albuterol Sulfate (Ventolin 0.083% Nebulizer Soln -) 1 amp NEB Q4H PRN PRN Reason: SHORT OF BREATH/WHEEZING Albuterol Sulfate (Ventolin 0.083% Nebulizer Soln -) 1 amp NEB QIDR [facility] Last Admin: 09/27/16 06:35 Dose: 1 amp Aspirin (Asa -) 81 mg PO DAILY [facility] Last Admin: 09/27/16 09:53 Dose: 81 mg Atorvastatin Calcium (Lipitor -) 40 mg PO HS [facility] Last Admin: 09/26/16 22:06 Dose: 40 mg Azithromycin (Zithromax -) 250 mg PO DAILY [facility] Last Admin: 09/27/16 09:52 Dose: 250 mg Benzocaine/Menthol (Cepacol Lozenge -) 1 each MM PRN PRN PRN Reason: SORE THROAT Last Admin: 09/26/16 23:05 Dose: 1 each Budesonide/Formoterol Fumarate (Symbicort 160/4.5mcg -) 2 puff IH BID [facility] Last Admin: 09/27/16 09:54 Dose: 2 puff Bupropion HCl (Wellbutrin Xl -) 300 mg PO DAILY [facility] Last Admin: 09/27/16 09:56 Dose: 300 mg Calcium Carbonate/Cholecalciferol (Os-Clarence 500+D -) 1 tab PO BID [facility] Last Admin: 09/27/16 09:53 Dose: 1 tab Clopidogrel Bisulfate (Plavix -) 75 mg PO DAILY [facility] Last Admin: 09/27/16 09:52 Dose: 75 mg Cyclobenzaprine HCl (Flexeril -) 10 mg PO HS [facility] Last Admin: 09/26/16 22:05 Dose: 10 mg Darbepoetin Miquel (Aranesp -) 40 mcg SQ Q7D@1000 [facility] Last Admin: 09/23/16 16:33 Dose: 40 mcg Diltiazem HCl (Cardizem Cd -) 120 mg PO DAILY [facility] Last Admin: 09/27/16 09:54 Dose: 120 mg Ferrous Sulfate (Feosol -) 325 mg PO TID [facility] Last Admin: 09/27/16 06:59 Dose: 325 mg Lactic Acid (Lac-Hydrin 12% Cream -) 1 applic TP BID [facility] Last Admin: 09/27/16 09:54 Dose: 1 applic Losartan Potassium (Cozaar -) 100 mg PO DAILY [facility] Last Admin: 09/27/16 09:52 Dose: 100 mg Methylprednisolone Sodium Succinate (Solu-Medrol -) 40 mg IVPB Q12H [facility] Last Admin: 09/27/16 09:55 Dose: 40 mg Montelukast Sodium (Singulair -) 10 mg PO HS [facility] Last Admin: 09/26/16 22:04 Dose: 10 mg Nicotine (Nicoderm Patch -) 21 mg TD DAILY [facility] Last Admin: 09/27/16 09:54 Dose: 21 mg Nystatin (Nystatin Oral Suspension -) 500,000 units PO Q6HPO [facility] Last Admin: 09/27/16 06:59 Dose: 500,000 units Pantoprazole Sodium (Protonix -) 40 mg PO DAILY [facility] Last Admin: 09/27/16 09:52 Dose: 40 mg Pregabalin (Lyrica -) 75 mg PO TID [facility] Last Admin: 09/27/16 06:59 Dose: 75 mg Quetiapine Fumarate (Seroquel -) 50 mg PO BID [facility] Last Admin: 09/27/16 09:52 Dose: 50 mg Sertraline HCl (Zoloft -) 100 mg PO DAILY [facility] Last Admin: 09/27/16 09:53 Dose: 100 mg Zolpidem Tartrate (Ambien -) 5 mg PO HS PRN - Objective Vital Signs: Vital Signs Temperature 98.9 F 09/27/16 06:00 Pulse Rate 86 09/27/16 10:31 Respiratory Rate 20 09/27/16 06:00 Blood Pressure 150/80 09/27/16 06:00 O2 Sat by Pulse Oximetry (%) 98 09/27/16 10:31 Constitutional: Yes: Well Nourished, Calm Eyes: Yes: WNL HENT: Yes: WNL Neck: Yes: WNL Cardiovascular: Yes: Regular Rate and Rhythm, S1, S2 Respiratory: Yes: Wheezes (few scattered wheezes) Gastrointestinal: Yes: Normal Bowel Sounds, Soft Extremities: Yes: WNL Edema: No Labs: CBC, BMP 09/27/16 05:40 09/27/16 05:40 Problem List - Problems (1) Anemia Code(s): D64.9 - ANEMIA, UNSPECIFIED Qualifiers: Anemia type: unspecified type Qualified Code(s): D64.9 - Anemia, unspecified (2) Anxiety Code(s): F41.9 - ANXIETY DISORDER, UNSPECIFIED (3) CKD (chronic kidney disease) Code(s): N18.9 - CHRONIC KIDNEY DISEASE, UNSPECIFIED Qualifiers: Chronic kidney disease stage: unspecified stage Qualified Code(s): N18.9 - Chronic kidney disease, unspecified (4) Dyspnea on exertion Code(s): R06.09 - OTHER FORMS OF DYSPNEA (5) Chest pain Code(s): R07.9 - CHEST PAIN, UNSPECIFIED (6) Hyperlipidemia Code(s): E78.5 - HYPERLIPIDEMIA, UNSPECIFIED (7) Hypertension Code(s): I10 - ESSENTIAL (PRIMARY) HYPERTENSION (8) Smokes cigarettes Code(s): F17.210 - NICOTINE DEPENDENCE, CIGARETTES, UNCOMPLICATED (9) Symptomatic anemia Code(s): D64.9 - ANEMIA, UNSPECIFIED (10) COPD (chronic obstructive pulmonary disease) Code(s): J44.9 - CHRONIC OBSTRUCTIVE PULMONARY DISEASE, UNSPECIFIED Qualifiers : COPD type: COPD with acute exacerbation Qualified Code(s): J44.1 - Chronic obstructive pulmonary disease with (acute) exacerbation (11) Decompensated COPD with exacerbation (chronic obstructive pulmonary disease ) Code(s): J44.1 - CHRONIC OBSTRUCTIVE PULMONARY DISEASE W (ACUTE) EXACERBATION Assessment/Plan IMP COPD EXACERBATION IMPROVING ANEMIA CHEST PAIN CKD STAGE 3 HTN SMOKER PLAN CONT STEROID TAPER INHALED BRONCHODILATORS NASAL O2 SMOKING CESSATION DISCUSSED DR MARIE Problem List - Problems (1) Anemia Code(s): D64.9 - ANEMIA, UNSPECIFIED Qualifiers: Anemia type: unspecified type Qualified Code(s): D64.9 - Anemia, unspecified (2) Anxiety Code(s): F41.9 - ANXIETY DISORDER, UNSPECIFIED (3) CKD (chronic kidney disease) Code(s): N18.9 - CHRONIC KIDNEY DISEASE, UNSPECIFIED Qualifiers: Chronic kidney disease stage: unspecified stage Qualified Code(s): N18.9 - Chronic kidney disease, unspecified (4) Dyspnea on exertion Code(s): R06.09 - OTHER FORMS OF DYSPNEA (5) Chest pain Code(s): R07.9 - CHEST PAIN, UNSPECIFIED (6) Hyperlipidemia Code(s): E78.5 - HYPERLIPIDEMIA, UNSPECIFIED (7) Hypertension Code(s): I10 - ESSENTIAL (PRIMARY) HYPERTENSION (8) Smokes cigarettes Code(s): F17.210 - NICOTINE DEPENDENCE, CIGARETTES, UNCOMPLICATED (9) Symptomatic anemia Code(s): D64.9 - ANEMIA, UNSPECIFIED (10) COPD (chronic obstructive pulmonary disease) Code(s): J44.9 - CHRONIC OBSTRUCTIVE PULMONARY DISEASE, UNSPECIFIED Qualifiers : COPD type: COPD with acute exacerbation Qualified Code(s): J44.1 - Chronic obstructive pulmonary disease with (acute) exacerbation (11) Decompensated COPD with exacerbation (chronic obstructive pulmonary disease ) Code(s): J44.1 - CHRONIC OBSTRUCTIVE PULMONARY DISEASE W (ACUTE) EXACERBATION
[2016-09-27] MEDS: CYCLOBENZAPRINE HCL 10 MG TABLET (FP) PO SCH (21:26)
[2016-09-27] MEDS: ATORVASTATIN CA 40 MG TABLET (FP) PO SCH (21:27)
[2016-09-27] MEDS: MONTELUKAST NA 10 MG TABLET PO SCH (21:28)
[2016-09-27] MEDS: methylPREDNISolone NA SUCC 40 MG/1 ML VIAL IVPB SCH (21:28)
--- NOTE | 2016-09-27 22:05 | PN ---
Progress Note (short form) - Note Progress Note: Patient seen and examined c/o some back pain AFVSS HEENT: [place], EOM Intact Cor: RSR, No murmurs, No gallops Lungs: Clear to P&A Abd: Soft, Normal bowel sounds, No organomegaly Ext:No significant edema Skin: No rashes, Integument intact Abnormal Lab Results 09/24/16 06:00 IgA 443 H Meds reviewed A/P 65y F hx of COPD, asthma, anemia, htn, acid reflux presents with complaing of worsening cough/sob for the past 5 days, w/o any fever/chills. Pt also complaining of severe back pain when she is coughing and on palpation. Xray T spine shows chronic midthoracic compression and osteopenia Anemia: normocytic Hemoglobin stable multifactorial anemia anemia of CKD+ chronic disease due to COPD +/- gi losses iron studies were done on ferrous sulfate ferritin was 53 03/2016 --- egd/colonoscopy --megacolon/normal mucosa/chronic gastriis check B12/folate--nl low tsh and ft4 --? acute illness. will need to repeat protein studies pending back pain --- consider ct t/l spine ? osteoporotoc fx
[2016-09-28 00:08] LABS: A/G RATIO 1.1 (0.7-1.7); ALBUMIN 3.4 g/dL (2.9-4.4); ALPHA-1-GLOBULIN 0.3 g/dL (0.0-0.4); BETA GLOBULIN 1.1 g/dL (0.7-1.3); GAMMA GLOBULIN 1.1 g/dL (0.4-1.8); GLOBULIN, TOTAL 3.4 g/dL (2.2-3.9); M-SPIKE Not Observed g/dL (Not Observed); TOTAL PROTEIN 6.8 g/dL (6.0-8.5)
[2016-09-28] MEDS: NYSTATIN 500,000 UNITS/5 ML SUSPENSION PO SCH ×3 (00:11→11:23)
[2016-09-28] MEDS: ALBUTEROL SO4 0.083% IH SOL 2.5 MG/3 ML VIAL.NEB. NEB SCH ×3 (00:21→11:19)
[2016-09-28] MEDS ORDERED: PT OWN MED DRAWER 7, Y5N ONE ×2 (06:34→09:18)
[2016-09-28] MEDS: FERROUS SO4 325 MG TABLET (FP) PO SCH ×2 (06:49→14:09)
[2016-09-28] MEDS: PREGABALIN 75 MG CAPSULE PO SCH ×2 (06:49→14:09)
[2016-09-28] MEDS: SERTRALINE HCL 50 MG TABLET (FP) PO SCH (09:20)
[2016-09-28] MEDS: ACLIDINIUM BROMIDE 400 MCG/INH AERO.POWD IH SCH (09:20)
[2016-09-28] MEDS: LOSARTAN POTASSIUM 50 MG TABLET (FP) PO SCH (09:20)
[2016-09-28] MEDS: ASPIRIN 81 MG CHEWABLE TABLETS PO SCH (09:21)
[2016-09-28] MEDS: CLOPIDOGREL BISULFATE 75 MG TABLET (FP) PO SCH (09:21)
[2016-09-28] MEDS: QUEtiapine FUMARATE 50 MG TABLET PO SCH (09:21)
[2016-09-28] MEDS: NICOTINE 21 MG/24 HOURS TOPICAL PATCH TD SCH (09:21)
[2016-09-28] MEDS: CALCIUM 500MG/VIT-D 200 UNITS COMBO TABLET (FP) PO SCH (09:21)
[2016-09-28] MEDS: AZITHROMYCIN 250 MG TABLET (FP) PO SCH (09:22)
[2016-09-28] MEDS: PANTOPRAZOLE 40 MG TABLET (FP) PO SCH (09:22)
[2016-09-28] MEDS: BENZOCAINE/MENTH/CETYLPYRD CL 1 EACH LOZENGE MM PRN (09:26)
[2016-09-28] MEDS: AMMONIUM LACTATE 12% CREAM 140 GM TUBE TP SCH (09:26)
[2016-09-28] MEDS: methylPREDNISolone NA SUCC 40 MG/1 ML VIAL IVPB SCH (10:49)
[2016-09-28] MEDS: BUDESONIDE/FORMETEROL FUMARATE 160/4.5 mcg INHALER IH SCH (11:24)
--- NOTE | 2016-09-28 11:33 | PN ---
Progress Note (short form) - Note Progress Note: OOB to chair. Reports feeling overall better. Some residual cough. No CP. Intake & Output 09/25/16 09/26/16 09/27/16 09/28/16 23:59 23:59 23:59 23:59 Intake Total 850 1250 670 Balance 850 1250 670 Last Vital Signs Temp Pulse Resp BP Pulse Ox 98.7 F 89 20 127/60 100 09/28/16 10:00 09/28/16 10:00 09/28/16 10:00 09/28/16 10:00 09/28/16 10:00 Active Medications Acetaminophen (Tylenol -) 650 mg PO Q6H PRN PRN Reason: FEVER OR PAIN Last Admin: 09/26/16 08:16 Dose: 650 mg Aclidinium [place] (Tudorza -) 1 puff IH BID [facility] Last Admin: 09/28/16 09:20 Dose: 1 puff Albuterol Sulfate (Ventolin 0.083% Nebulizer Soln -) 1 amp NEB Q4H PRN PRN Reason: SHORT OF BREATH/WHEEZING Albuterol Sulfate (Ventolin 0.083% Nebulizer Soln -) 1 amp NEB QIDR [facility] Last Admin: 09/28/16 11:19 Dose: 1 amp Aspirin (Asa -) 81 mg PO DAILY [facility] Last Admin: 09/28/16 09:21 Dose: 81 mg Atorvastatin Calcium (Lipitor -) 40 mg PO HS [facility] Last Admin: 09/27/16 21:27 Dose: 40 mg Azithromycin (Zithromax -) 250 mg PO DAILY [facility] Last Admin: 09/28/16 09:22 Dose: 250 mg Benzocaine/Menthol (Cepacol Lozenge -) 1 each MM PRN PRN PRN Reason: SORE THROAT Last Admin: 09/28/16 09:26 Dose: 1 each Budesonide/Formoterol Fumarate (Symbicort 160/4.5mcg -) 2 puff IH BID [facility] Last Admin: 09/28/16 11:24 Dose: 2 puff Bupropion HCl (Wellbutrin Xl -) 300 mg PO DAILY [facility] Last Admin: 09/28/16 09:22 Dose: 300 mg Calcium Carbonate/Cholecalciferol (Os-Clarence 500+D -) 1 tab PO BID [facility] Last Admin: 09/28/16 09:21 Dose: 1 tab Clopidogrel Bisulfate (Plavix -) 75 mg PO DAILY [facility] Last Admin: 09/28/16 09:21 Dose: 75 mg Cyclobenzaprine HCl (Flexeril -) 10 mg PO HS [facility] Last Admin: 09/27/16 21:26 Dose: 10 mg Darbepoetin Miquel (Aranesp -) 40 mcg SQ Q7D@1000 [facility] Last Admin: 09/23/16 16:33 Dose: 40 mcg Diltiazem HCl (Cardizem Cd -) 120 mg PO DAILY [facility] Last Admin: 09/28/16 09:22 Dose: 120 mg Ferrous Sulfate (Feosol -) 325 mg PO TID [facility] Last Admin: 09/28/16 06:49 Dose: 325 mg Lactic Acid (Lac-Hydrin 12% Cream -) 1 applic TP BID [facility] Last Admin: 09/28/16 09:26 Dose: 1 applic Losartan Potassium (Cozaar -) 100 mg PO DAILY [facility] Last Admin: 09/28/16 09:20 Dose: 100 mg Montelukast Sodium (Singulair -) 10 mg PO [facility] Last Admin: 09/27/16 21:28 Dose: 10 mg Nicotine (Nicoderm Patch -) 21 mg TD DAILY [facility] Last Admin: 09/28/16 09:21 Dose: 21 mg Nystatin (Nystatin Oral Suspension -) 500,000 units PO Q6HPO [facility] Last Admin: 09/28/16 11:23 Dose: 500,000 units Pantoprazole Sodium (Protonix -) 40 mg PO DAILY [facility] Last Admin: 09/28/16 09:22 Dose: 40 mg Prednisone (Deltasone -) 40 mg PO DAILY [facility] Pregabalin (Lyrica -) 75 mg PO TID [facility] Last Admin: 09/28/16 06:49 Dose: 75 mg Quetiapine Fumarate (Seroquel -) 50 mg PO BID [facility] Last Admin: 09/28/16 09:21 Dose: 50 mg Sertraline HCl (Zoloft -) 100 mg PO DAILY [facility] Last Admin: 09/28/16 09:20 Dose: 100 mg Constitutional: Yes: NAD Eyes: Yes: WNL HENT: Yes: WNL Neck: Yes: WNL Cardiovascular: Yes: Regular Rate and Rhythm, S1, S2 Respiratory: Yes: Scattered rhonchi, no wheezes Gastrointestinal: Yes: Normal Bowel Sounds, Soft Extremities: Yes: WNL Edema: No Labs: Laboratory Results - last 24 hr 09/24/16 06:00 Serum Total Protein 6.8 Albumin 3.4 Globulin Cancelled Albumin/Globulin Ratio Cancelled Rqzkv-5-Ulwaedtjk 0.3 Ycyka-6-Meeqjjxfd 0.9 Beta Globulins 1.1 Gamma Globulins 1.1 IgG 879 IgA 443 H IgM 152 NOREEN M-[place] Not observed NOREEN Comments Serum NOREEN Interpret Comment: Problem List - Problems (1) Anemia Code(s): D64.9 - ANEMIA, UNSPECIFIED Qualifiers: Anemia type: unspecified type Qualified Code(s): D64.9 - Anemia, unspecified (2) Anxiety Code(s): F41.9 - ANXIETY DISORDER, UNSPECIFIED (3) CKD (chronic kidney disease) Code(s): N18.9 - CHRONIC KIDNEY DISEASE, UNSPECIFIED Qualifiers: Chronic kidney disease stage: unspecified stage Qualified Code(s): N18.9 - Chronic kidney disease, unspecified (4) Dyspnea on exertion Code(s): R06.09 - OTHER FORMS OF DYSPNEA (5) Chest pain Code(s): R07.9 - CHEST PAIN, UNSPECIFIED (6) Hyperlipidemia Code(s): E78.5 - HYPERLIPIDEMIA, UNSPECIFIED (7) Hypertension Code(s): I10 - ESSENTIAL (PRIMARY) HYPERTENSION (8) Smokes cigarettes Code(s): F17.210 - NICOTINE DEPENDENCE, CIGARETTES, UNCOMPLICATED (9) Symptomatic anemia Code(s): D64.9 - ANEMIA, UNSPECIFIED (10) COPD (chronic obstructive pulmonary disease) Code(s): J44.9 - CHRONIC OBSTRUCTIVE PULMONARY DISEASE, UNSPECIFIED Qualifiers : COPD type: COPD with acute exacerbation Qualified Code(s): J44.1 - Chronic obstructive pulmonary disease with (acute) exacerbation (11) Decompensated COPD with exacerbation (chronic obstructive pulmonary disease ) Code(s): J44.1 - CHRONIC OBSTRUCTIVE PULMONARY DISEASE W (ACUTE) EXACERBATION Assessment/Plan IMP COPD EXACERBATION IMPROVING ANEMIA CHEST PAIN CKD STAGE 3 HTN SMOKER PLAN PREDNISONE TAPER INHALED BRONCHODILATORS CHECK PRE AND POST O2 SATURATION SMOKING CESSATION DISCUSSED NO PULMONARY CONTRAINDICATION FOR D/C PFTS ONCE STABLE AN OUTPATIENT DR UP
--- NOTE | 2016-09-28 11:41 | PN ---
Progress Note (short form) - Note Progress Note: Renal Follow up for CKD Pt seen and examined at the bedside pt ambulating in the hallway w/o difficutly denies any chest pain sob improved Vital Signs Temperature 98.7 F 09/28/16 10:00 Pulse Rate 89 09/28/16 10:00 Respiratory Rate 20 09/28/16 10:00 Blood Pressure 127/60 09/28/16 10:00 O2 Sat by Pulse Oximetry (%) 100 09/28/16 10:00 Intake & Output 09/25/16 09/26/16 09/27/16 09/28/16 23:59 23:59 23:59 23:59 Intake Total 850 1250 670 Balance 850 1250 670 Gen: more calm today CVS: RRR Lungs: CTA Abd: soft NT/ND Ext: No edmea, clubbing or cyanosis CBC, BMP 09/27/16 05:40 09/27/16 05:40 Laboratory Tests 09/27/16 05:40 Calcium 9.3 Phosphorus 4.5 D Magnesium 2.4 Current Medications Acetaminophen (Tylenol -) 650 mg PO Q6H PRN PRN Reason: FEVER OR PAIN Last Admin: 09/26/16 08:16 Dose: 650 mg Aclidinium [place] (Tudorza -) 1 puff IH BID [facility] Last Admin: 09/28/16 09:20 Dose: 1 puff Albuterol Sulfate (Ventolin 0.083% Nebulizer Soln -) 1 amp NEB Q4H PRN PRN Reason: SHORT OF BREATH/WHEEZING Albuterol Sulfate (Ventolin 0.083% Nebulizer Soln -) 1 amp NEB QIDR [facility] Last Admin: 09/28/16 11:19 Dose: 1 amp Aspirin (Asa -) 81 mg PO DAILY [facility] Last Admin: 09/28/16 09:21 Dose: 81 mg Atorvastatin Calcium (Lipitor -) 40 mg PO HS [facility] Last Admin: 09/27/16 21:27 Dose: 40 mg Azithromycin (Zithromax -) 250 mg PO DAILY [facility] Last Admin: 09/28/16 09:22 Dose: 250 mg Benzocaine/Menthol (Cepacol Lozenge -) 1 each MM PRN PRN PRN Reason: SORE THROAT Last Admin: 09/28/16 09:26 Dose: 1 each Budesonide/Formoterol Fumarate (Symbicort 160/4.5mcg -) 2 puff IH BID [facility] Last Admin: 09/28/16 11:24 Dose: 2 puff Bupropion HCl (Wellbutrin Xl -) 300 mg PO DAILY [facility] Last Admin: 09/28/16 09:22 Dose: 300 mg Calcium Carbonate/Cholecalciferol (Os-Clarence 500+D -) 1 tab PO BID [facility] Last Admin: 09/28/16 09:21 Dose: 1 tab Clopidogrel Bisulfate (Plavix -) 75 mg PO DAILY [facility] Last Admin: 09/28/16 09:21 Dose: 75 mg Cyclobenzaprine HCl (Flexeril -) 10 mg PO HS [facility] Last Admin: 09/27/16 21:26 Dose: 10 mg Darbepoetin Miquel (Aranesp -) 40 mcg SQ Q7D@1000 [facility] Last Admin: 09/23/16 16:33 Dose: 40 mcg Diltiazem HCl (Cardizem Cd -) 120 mg PO DAILY [facility] Last Admin: 09/28/16 09:22 Dose: 120 mg Ferrous Sulfate (Feosol -) 325 mg PO TID [facility] Last Admin: 09/28/16 06:49 Dose: 325 mg Lactic Acid (Lac-Hydrin 12% Cream -) 1 applic TP BID [facility] Last Admin: 09/28/16 09:26 Dose: 1 applic Losartan Potassium (Cozaar -) 100 mg PO DAILY [facility] Last Admin: 09/28/16 09:20 Dose: 100 mg Montelukast Sodium (Singulair -) 10 mg PO HS [facility] Last Admin: 09/27/16 21:28 Dose: 10 mg Nicotine (Nicoderm Patch -) 21 mg TD DAILY [facility] Last Admin: 09/28/16 09:21 Dose: 21 mg Nystatin (Nystatin Oral Suspension -) 500,000 units PO Q6HPO [facility] Last Admin: 09/28/16 11:23 Dose: 500,000 units Pantoprazole Sodium (Protonix -) 40 mg PO DAILY [facility] Last Admin: 09/28/16 09:22 Dose: 40 mg Prednisone (Deltasone -) 40 mg PO DAILY [facility] Pregabalin (Lyrica -) 75 mg PO TID [facility] Last Admin: 09/28/16 06:49 Dose: 75 mg Quetiapine Fumarate (Seroquel -) 50 mg PO BID [facility] Last Admin: 09/28/16 09:21 Dose: 50 mg Sertraline HCl (Zoloft -) 100 mg PO DAILY [facility] Last Admin: 09/28/16 09:20 Dose: 100 mg A/P 65 year old woman with PMhx of non-proteinuric CKD stage 3, hypertension anxiety disorder who presented with sob and found to have Anemia and Cr of 1.5. #Acute SOB secondary to COPD exacerbation +/- Anemia Continue Prednisone taper as per pulmonary #Aacute on Chronic Anemia Hgb improved and stable SPEP showed polyclonal gammopathy Heme following #CKD Stage 3 Renal function and electrolytes stable continue ARB #Anxiety disorder Continue zolfot, serodyan Reese DO
[2016-09-28 13:20] VITALS: BP 116/62; PULSE 83; TEMP 98.2
[2016-09-28] MEDS: ACETAMINOPHEN 325 MG TABLET (FP) PO PRN (14:11)
--- NOTE | 2016-09-28 14:54 | DS ---
Physical Examination Vital Signs: Vital Signs Temperature 98.2 F 09/28/16 13:18 Pulse Rate 83 09/28/16 13:18 Respiratory Rate 20 09/28/16 13:18 Blood Pressure 116/62 09/28/16 13:18 O2 Sat by Pulse Oximetry (%) 95 09/28/16 11:37 Constitutional: Yes: Calm Cardiovascular: Yes: Regular Rate and Rhythm Respiratory: Yes: Diminished. No: Rales, Wheezes Musculoskeletal: Yes: Muscle Pain (paravertebral muscles but no pain to pressure.) Edema: No Neurological: Yes: Alert Labs: CBC, BMP 09/27/16 05:40 09/27/16 05:40 Discharge Summary Reason For Visit: DYSPNEA ON EXERTION/ANEMIA Current Active Problems Anemia (Acute) Anxiety (Acute) CKD (chronic kidney disease) (Acute) COPD (chronic obstructive pulmonary disease) (Acute) Decompensated COPD with exacerbation (chronic obstructive pulmonary disease) ( Acute) Dyspnea on exertion (Acute) Thrush, oral (Acute) Procedures: Principal: IV steroids; CXR and labs and antibiotics. Other Procedures: Visits from Pulmonary,Renal and Heme MD's. Hospital Course: Slowly improved and O2 Sat pre and Post walking were fine. Condition: Stable - Instructions Diet, Activity, Other Instructions: low fat diet; no added salt. See Dr. Kumar within 1 0r 2 weeks. You may need the Visiting Nurse to give you weekly epogen injections to help your anemia If your back pain continues Dr. Kumar will order a scan. Referrals: Balta Navas MD [Staff Physician] - Mariano Kumar MD [Primary Care Provider] - Disposition: VNS/HOME HEALTH CARE - Home Medications Comprehensive Discharge Medication List: Ambulatory Orders Albuterol Sulfate [Proair Respiclick] 90 mcg IH ASDIR 03/16/16 Ammonium Lactate Cream [Lac-Hydrin 12% Cream -] 1 applic TP BID 03/16/16 Aspirin [ASA -] 81 mg PO DAILY 03/16/16 Budesonide/Formeterol Fumarate [SYMBICORT 160/4.5mcg -] 2 inh PO DAILY 03/16/16 Bupropion HCl [Bupropion Xl] 300 mg PO DAILY 03/16/16 Calcium Carbonate/Vitamin D3 [Calcium 500-Vit D3 200 Caplet] 1 each PO BID 03/16 Clopidogrel Bisulfate [Clopidogrel] 75 mg PO DAILY 03/16/16 Ferrous Sulfate 325 mg PO TID 03/16/16 Losartan Potassium 100 mg PO DAILY 03/16/16 Montelukast Na [Singulair -] 10 mg PO HS 03/16/16 Omeprazole 20 mg PO DAILY 03/16/16 Quetiapine Fumarate [Seroquel -] 50 mg PO BID 03/16/16 Sertraline HCl [Zoloft -] 100 mg PO DAILY 03/16/16 Cyclobenzaprine HCl [Flexeril -] 10 mg PO HS 08/12/16 Pregabalin [Lyrica -] 75 mg PO TID 08/12/16 Atorvastatin Ca [Lipitor] 40 mg PO HS #30 tablet 08/13/16 Diltiazem Cd [Cardizem Cd -] 120 mg PO DAILY #30 cap.cd.24h 08/13/16 Nicotine Patch [Nicoderm Patch -] 21 mg TD DAILY #30 patch 08/13/16 Tiotropium [place] [Spiriva] 18 mcg IH DAILY #1 inh 08/13/16 Acetaminophen [Tylenol .Regular Strength -] 650 mg PO Q6H PRN #0 tablet Albuterol 0.083% Nebulizer Sonya [Ventolin 0.083% Nebulizer Soln -] 1 amp NEB QIDR #25 amp 09/28/16 Darbepoetin Miqu[place] [Aranesp -] 40 mcg SQ Q7D@1000 disp.syrin 09/28/16 Nystatin Oral Suspension - [Nystatin Oral Susp 555816 Units/5 ML -] 500,000 units PO Q6HPO #60 cup 09/28/16 Prednisone [Deltasone -] 20 mg PO DAILY #30 tablet 09/28/16
[2016-09-29 00:15] LABS: ALBUMIN FOR UPE 67.4 % (.); GAMMA GLOBULIN % 6.9 % (.); M-SPIKE, % Not Observed % (Not Observed)
[2016-09-29] MEDS ORDERED: predniSONE 20 MG TABLET (UD) PO SCH (10:00)
== END 2016-09-28 15:17 | disposition home health service (06) | DRG 191 ==
LOC: JER 14:02 → JERBED 18:26 → J4S 09-22 05:07 → J5S 09-23 12:55
PROVIDERS: ADMIT Specialist; ATTEND Specialist
PROC: 30233N1 Transfusion of Nonautologous Red Blood Cells into Peripheral Vein, Percutaneous Approach (ICD-10-PCS; principal; 2016-09-21)
DX: J44.1 Chronic obstructive pulmonary disease with (acute) exacerbation (principal); G95.29 Other cord compression; B37.0 Candidal stomatitis; J45.909 Unspecified asthma, uncomplicated; F17.210 Nicotine dependence, cigarettes, uncomplicated; I73.9 Peripheral vascular disease, unspecified; I12.9 Hypertensive chronic kidney disease with stage 1 through stage 4 chronic kidney disease, or unspecified chronic kidney disease; N18.3 Chronic kidney disease, stage 3 (moderate); K21.9 Gastro-esophageal reflux disease without esophagitis; F03.90 Unspecified dementia, unspecified severity, without behavioral disturbance, psychotic disturbance, mood disturbance, and anxiety; F41.9 Anxiety disorder, unspecified; E78.5 Hyperlipidemia, unspecified; K29.50 Unspecified chronic gastritis without bleeding; M85.88 Other specified disorders of bone density and structure, other site; D63.1 Anemia in chronic kidney disease
CPT/HCPCS: 36415; 36430; 71010-TC; 72070-TC; 72100-TC; 80048; 80053; 81003; 81015; 82272; 82550; 82570; 82607; 82728; 82747; 82784; 82803; 83540; 83550; 83615; 83735; 83880; 84100; 84155; 84156; 84157; 84165; 84439; 84443; 84484; 85014; 85025; 85651; 86140; 86334; 86850; 86900; 86901; 86922; 87254; 87804; 93005; 93010; 94640; 94761; 99285-25; J0881; P9058

== ENCOUNTER 2016-10-22 23:35 | Emergency (ER) | payer OTHER ==
--- NOTE | 2016-10-22 23:54 | PDOC ---
History of Present Illness - General History Source: EMS, Family, Old Records Exam Limitations: Intubated, Unresponsive - History of Present Illness Initial Comments: 10/23/16 00:18 This patient was seen and evaluated immediately upon arrival to the ED, this note was entered at a later point in time. The patient is a 65 year old female, with a significant past medical history of anemia, asthma, hypertension, hyperlipidemia, COPD, chronic kidney disease ( Stage IV) and peripheral arterial disease, who presents to the emergency department via EMS in cardiac arrest. The patients family is in the ED. As per family members, the patient was in her usual state of health earlier today. Family members report that the patient was eating a chicken cutlet tonight, when she began choking on the food, couldnt breathe and became unresponsive. EMS was initiated. Upon arrival to the scene, EMS noted that the patient was unresponsive, pulseless and apneic. EMS reports initiating CPR in addition to five rounds of epinephrine. The patient was intubated and EMS reports that they worked on the patient for approximately 25 minutes prior to arrival to the ED. The patient was seen and evaluated immediately upon arrival to the ED. PCP: Dr. Mariano Kumar <Dora Jones - Last Filed: 10/23/16 00:37> - General History Source: EMS, Family, Old Records Exam Limitations: Unresponsive <Luis Carlos Slade - Last Filed: 10/23/16 00:40> - General Stated Complaint: CARDIAC ARREST Time Seen by Provider: 10/22/16 23:50 Past History <Dora Jones - Last Filed: 10/23/16 00:37> - Past Medical History Anemia: Yes Asthma: Yes Cancer: No Cardiac Disorders: No CVA: No COPD: Yes CHF: No Dementia: No Diabetes: No GI Disorders: Yes (ACID REFLUX) Disorders: No HTN: Yes Hypercholesterolemia: Yes Liver Disease: No Suicide Attempt (Hx): No Seizures: No Thyroid Disease: No - Surgical History Abdominal Surgery: Yes (HERNIA colon resection) Appendectomy: No Cardiac Surgery: No Cholecystectomy: No Lung Surgery: No Neurologic Surgery: No Orthopedic Surgery: No - Immunization History Immunization Up to Date: Yes - Psycho/Social/Smoking Cessation Hx Anxiety: No Suicidal Ideation: No Smoking Status: Yes Smoking History: Current every day smoker Have you smoked in the past 12 months: Yes Number of Cigarettes Smoked Daily: 10 'Breaking Loose' booklet given: 09/22/16 Hx Alcohol Use: Yes (social) Drug/Substance Use Hx: No Substance Use Type: Alcohol Hx Substance Use Treatment: No <Luis Carlos Slade - Last Filed: 10/23/16 00:40> - Past Medical History Allergies/Adverse Reactions: Allergies Allergy/AdvReac Type Severity Reaction Status Date / Time No Known Drug Allergies Allergy Verified 09/21/16 14:04 Home Medications: Ambulatory Orders Albuterol Sulfate [Proair Respiclick] 90 mcg IH ASDIR 03/16/16 Ammonium Lactate Cream [Lac-Hydrin 12% Cream -] 1 applic TP BID 03/16/16 Aspirin [ASA -] 81 mg PO DAILY 03/16/16 Budesonide/Formeterol Fumarate [SYMBICORT 160/4.5mcg -] 2 inh PO DAILY 03/16/16 Bupropion HCl [Bupropion Xl] 300 mg PO DAILY 03/16/16 Calcium Carbonate/Vitamin D3 [Calcium 500-Vit D3 200 Caplet] 1 each PO BID 03/16 Clopidogrel Bisulfate [Clopidogrel] 75 mg PO DAILY 03/16/16 Ferrous Sulfate 325 mg PO TID 03/16/16 Losartan Potassium 100 mg PO DAILY 03/16/16 Montelukast Na [Singulair -] 10 mg PO HS 03/16/16 Omeprazole 20 mg PO DAILY 03/16/16 Quetiapine Fumarate [Seroquel -] 50 mg PO BID 03/16/16 Sertraline HCl [Zoloft -] 100 mg PO DAILY 03/16/16 Cyclobenzaprine HCl [Flexeril -] 10 mg PO HS 08/12/16 Pregabalin [Lyrica -] 75 mg PO TID 08/12/16 Atorvastatin Ca [Lipitor] 40 mg PO HS #30 tablet 08/13/16 Diltiazem Cd [Cardizem Cd -] 120 mg PO DAILY #30 cap.cd.24h 08/13/16 Nicotine Patch [Nicoderm Patch -] 21 mg TD DAILY #30 patch 08/13/16 Tiotropium [place] [Spiriva] 18 mcg IH DAILY #1 inh 08/13/16 Acetaminophen [Tylenol .Regular Strength -] 650 mg PO Q6H PRN #0 tablet Albuterol 0.083% Nebulizer Sonya [Ventolin 0.083% Nebulizer Soln -] 1 amp NEB QIDR #25 amp 09/28/16 Darbepoetin [place] [Aranesp -] 40 mcg SQ Q7D@1000 disp.syrin 09/28/16 Nystatin Oral Suspension - [Nystatin Oral Susp 307003 Units/5 ML -] 500,000 units PO Q6HPO #60 cup 09/28/16 Prednisone [Deltasone -] 20 mg PO DAILY #30 tablet 09/28/16 Review of Systems - Review of Systems Able to Perform ROS?: No Comments:: 10/23/16 00:07 Unable to perform ROS as the patient was unresponsive, intubated upon arrival to the ED. <Dora Jones - Last Filed: 10/23/16 00:37> *Physical Exam - Physical Exam Comments: 10/23/16 00:20 GENERAL: Unresponsive, intubated. LUNGS: Absent breath sounds. HEART: Absent heart sounds. ABDOMEN: Distended abdomen. <Dora Jones - Last Filed: 10/23/16 00:37> Procedures - Intubation Time of Intubation: 23:30 Blade used: Mac Tube Size (Fr): 7.0 Tube position @ lip (cm): 22 Tube position confirmed by: Direct visualization, CO2 detector, Breath sounds Breath Sounds after Intubation: equal Intubation Complications: no complications Post Intubation Xray: No <Luis Carlos Slade - Last Filed: 10/23/16 00:40> Medical Decision Making - Medical Decision Making 10/23/16 00:00 Time of : 23:45. Call placed to Dr. Mariano Kumar at 23:53, 00:15, 00:30. Referred to answering service, awaiting callback. Dr. Brady returned call at 00:36, case discussed. <Dora Jones - Last Filed: 10/23/16 00:37> - Medical Decision Making 10/22/16 23:52 A portion of this note was documented by scribe services under my direction. I have reviewed the details of the note, within reason, and agree with the documentation with the following case summary and management plan written by me. Patient treated in the ED. Patient arrives by ambulance to the emergency department. Nursing notes are reviewed and incorporated into the medical decision-making. Vital signs reviewed. Peripheral IV access obtained by the nurse, laboratory studies are drawn and sent, reviewed and interpreted by myself. 65-year-old female with history of COPD, hypertension, chronic to me disease stage IV, peripheral arterial disease, anemia brought in by EMS for cardiac arrest. According to the family and EMS, the patient was in her usual state of health. She was eating chicken Cutlet with her family when she had choked on her food. Patient couldn't breathe and subsequently became unresponsive. EMS was activated and called. Upon arrival, EMS had noted that the patient was unresponsive, pulseless and apneic. They performed CPR and given 5 rounds of epinephrine. The patient was intubated. He had worked on her for approximately 25 minutes prior to bring the patient to the ER. They had noted a PEA rhythm initially. Upon arrival to the ER, I had seen the patient immediately. The patient's abdomen was distended. Given the distention of the abdomen, ET tube was exchanged via direct visualization by Dr. Sherine Horn with a Mac blade 3. 7 no ET tube was placed with direct visualization and equal breath sounds. Section was made with some bits of food. Patient had CPR performed from 11:28 PM on arrival to 11:45 PM. However, patient was persistently asystolic and absent heart sounds. Bedside echocardiogram demonstrated cardiac standstill. Given 17 minutes of asystole and cardiac standstill, decision was made to pronounce the patient at 11:45 PM. I suspect that the patient's may potentially be secondary to choking. Patient's family at bedside including son. I had informed them of the outcome. Case was discussed with medical professionals Ted Zheng who accepted the case for further evaluation. Case [id number]. Pt's PMD, Dr. Mariano Kumar was paged to inform him. 10/23/16 00:[address] Brady. He is aware of patient's . <Luis Carlos Slade - Last Filed: 10/23/16 00:40> *DC/Admit/Observation/Transfer - Attestations Scribe Attestion: 10/22/16 23:57 Documentation prepared by Dora Jones, acting as phlebotomist medical lab assistant for Luis Carlos Slade MD. <Dora Jones - Last Filed: 10/23/16 00:37> <Lius Carlos Slade - Last Filed: 10/23/16 00:40> Diagnosis at time of Disposition: Cardiac arrest - Discharge Dispostion Disposition: Condition at time of disposition: - Referrals Referrals: Mariano Kumar MD [Primary Care Provider] -
[2016-10-23 00:03] VITALS: BP 00/00; PULSE 0; BMI 29.2
== END 2016-10-23 03:09 | disposition expired ==
LOC: JER 23:35
PROC: 0BH17EZ Insertion of Endotracheal Airway into Trachea, Via Natural or Artificial Opening (ICD-10-PCS; principal; 2016-10-22)
PROC: 5A12012 Performance of Cardiac Output, Single, Manual (ICD-10-PCS; 2016-10-22)
DX: I46.9 Cardiac arrest, cause unspecified (principal); J45.909 Unspecified asthma, uncomplicated; J44.9 Chronic obstructive pulmonary disease, unspecified; K21.9 Gastro-esophageal reflux disease without esophagitis; I10 Essential (primary) hypertension; E78.00 Pure hypercholesterolemia, unspecified; F17.210 Nicotine dependence, cigarettes, uncomplicated; D64.9 Anemia, unspecified
CPT/HCPCS: 31500; 92950; 99285-25